=== PATIENT | female | born 1945 | race Caucasian/White ===

== ENCOUNTER 2016-12-03 12:39 | Inpatient (IN) | payer OTHER ==
[~2016-12-03] VITALS: Ht 172.7 cm; Wt 73.6 kg
[~2016-12-03 12:39] MED LIST: ASPCH81X PO; CHOL1TAB42 PO; GLC/500 PO; GLUCTAB18; HYDR12.55 PO; [UNRECOGNIZED DRUG - OTHER] PO
[2016-12-03] MEDS ORDERED: IBUP-1050 PO (13:07)
[2016-12-03] MEDS ORDERED: LISI-787 PO (13:07)
[2016-12-03] MEDS ORDERED: HYDROmorphone INJ 2 MG/ML SYR/VIAL IV STA (14:06)
--- NOTE | 2016-12-03 14:13 | EMERGENCY ROOM VISIT NOTE ---
History Report prepared by Rupesh: Becca Duran Under the Supervision of: Dr. Martha Kunz D.O. First contact with patient: 13:26 Chief Complaint: BACK PAIN Stated Complaint: SEVERE FOOT PAIN History of Present Illness The patient is a 71 year old female who presents to the Emergency Room with complaints of persistent back pain for the past 2 months. She is accompanied by a family friend. She rates her discomfort as a 10/10 in severity. Laying down somewhat relieves her pain. Ibuprofen has also provided minimal relief. The patient denies any recent injury or trauma. Her friend reports she was seen back at home in [facility] several months ago for her symptoms, but they don't know what her diagnoses was. She moved to the [facility] permanently 2 days ago and is already established with a primary care physician here, [place]. Larry [place] [facility] Her friend believes an MRI of the back showed "a growth" on the spine and possible issues with some of her discs. The patient has also experienced the chills, melena and some difficulty urinating over the past few days. She denies any weakness in her legs. Source of History: patient, friend Onset: 2 months [employer] Position: back Symptom Intensity: 10/10 Timing: other (persistent) Modifying Factors (Relieving): rest (laying down), ibuprofen Associated Symptoms: + chills, + melena, + urinary symptoms (difficulty urinating), No weakness (weakness in the legs) Review of Systems See HPI for pertinent positives & negatives. A total of 10 systems reviewed and were otherwise negative. Past Medical & Surgical Medical Problems: (1) Diabetes (2) HTN (hypertension) (3) No known allergies Family History Diabetes mellitus Hypertension Social History Smoking Status: Never Smoker Smokeless Tobacco Use: No Alcohol Use: none Drug Use: none Marital Status: Housing Status: lives with significant other Occupation Status: retired Current/Historical Medications Scheduled Lisinopril/Hctz (Zestoretic 20MG/12.5MG), 1 TAB PO BID Metformin Hcl (Glucophage), 500 MG PO BID Scheduled PRN Ibuprofen (Advil), 200-600 MG PO Q4H PRN for Pain Allergies Coded Allergies: No Known Allergies (Unverified , 07/31/15) Physical Exam Vital Signs Date Time Temp Pulse Resp B/P (MAP) Pulse Ox O2 Delivery O2 Flow Rate FiO2 12/03/16 18:21 76 12/03/16 17:17 82 19 161/89 89 2.0 12/03/16 15:39 80 12 96 12/03/16 15:31 169/85 12/03/16 15:19 178/99 12/03/16 15:01 172/85 12/03/16 14:39 83 15 99 12/03/16 14:31 180/93 12/03/16 14:24 38.0 82 24 198/110 97 Nasal Cannula 2.0 12/03/16 14:19 198/110 12/03/16 14:19 86 12/03/16 14:19 95 Room Air 12/03/16 12:43 37.0 83 22 178/104 95 Room Air Physical Exam General: The patient appears extremely uncomfortable. HEENT: Head - normocephalic and atraumatic Pupils are equal, round, and reactive to light. Extraocular eye muscles are intact, and sclera are anicteric. Nose - moist nasal mucosa without discharge. Mouth - moist buccal mucosa. Oropharynx is nonerythematous and there is no tonsillar exudate or edema noted. Neck: Supple; no JVD, nuchal rigidity, cervical lymphadenopathy. Heart: Regular rate and rhythm. There is a normal S1 and S2 with no murmurs, clicks, or gallops appreciated. Lungs: Clear to auscultation bilaterally with no wheezes, rales, or rhonchi. Back: No skin lesions noted and no reproducible pain on exam. Abdomen: Soft, completely nontender, nondistended, with good bowel sounds. There are no palpable pulsatile masses or hepatosplenomegaly. There is no guarding, rigidity, or rebound noted. Extremities: No evidence of cyanosis, clubbing, or edema. There are easily palpable peripheral pulses. Skin: warm and dry with good turgor and no rashes. Medical Decision & Procedures ER Provider Diagnostic Interpretation: Radiology results as stated below per my review and the radiologist's interpretation: CT OF THE ABDOMEN AND PELVIS WITHOUT CONTRAST, STONE PROTOCOL CLINICAL HISTORY: Left sided abdominal pain. Evaluate for stone. COMPARISON STUDY: None. TECHNIQUE: Helical axial images of the abdomen and pelvis were obtained without IV or oral contrast according to renal stone protocol. A dose lowering technique was utilized adhering to the principles of ALARA. FINDINGS: Visualized portions of the lower chest demonstrate small bilateral pleural effusions. Associated airspace opacities suggest atelectasis. There may be mild pulmonary edema. No pneumatosis, free air or portal venous gas is present. There are no renal, ureteral or bladder calculi. There is no hydronephrosis or ureter. There are gallstones within the gallbladder. A small amount of ascites is noted. Unenhanced images of the liver, spleen, adrenal glands and pancreas are normal. There is no evidence for a bowel obstruction. The appendix is normal. Of note, there is an erosive appearance of the left aspect of the inferior endplate of L3 and the left aspect of the superior endplate of L4 with adjacent left paravertebral infiltration that extends into the left psoas. This is suboptimally assessed on this unenhanced CT. No additional sites of bony destruction are present IMPRESSION: 1. Findings suggestive of L3-L4 discitis and osteomyelitis with left paravertebral infiltration extending into the psoas muscle. This may reflect phlegmon or paravertebral abscess. An MRI of the lumbar spine with and without contrast is recommended for confirmation as well as to evaluate for epidural component. A neoplastic process could appear similar although is considered much less likely. Findings discussed with Dr. Kunz at time of dictation. 2. No urinary calculi or hydronephrosis. 3. Cholelithiasis. 4. Small bilateral pleural effusions. 5. Small amount of ascites. Electronically signed by: Rico Shearer M.D. 12/03/2016 4:20 PM Laboratory Results 12/03/16 14:15 Red Blood Count 3.55, Mean Corpuscular Volume 92.4, Mean Corpuscular Hemoglobin 31.3, Mean Corpuscular Hemoglobin Concent 33.8, Mean Platelet Volume 8.2, Neutrophils (%) (Auto) 65.2, Lymphocytes (%) (Auto) 24.3, Monocytes (%) (Auto) 8.5, Eosinophils (%) (Auto) 1.2, Basophils (%) (Auto) 0.4, Neutrophils # (Auto) 7.03, Lymphocytes # (Auto) 2.61, Monocytes # (Auto) 0.91, Eosinophils # (Auto) 0.13, Basophils # (Auto) 0.04 12/03/16 14:15 Test 12/03/16 14:15 12/03/16 14:19 White Blood Count 10.76 K/uL (4.8-10.8) Red Blood Count 3.55 M/uL (4.2-5.4) Hemoglobin 11.1 g/dL (12.0-16.0) Hematocrit 32.8 % (37-47) Mean Corpuscular Volume 92.4 fL (80-100) Mean Corpuscular Hemoglobin 31.3 pg (25-34) Mean Corpuscular Hemoglobin Concent 33.8 g/dl (32-36) Platelet Count 351 K/uL (130-400) Mean Platelet Volume 8.2 fL (7.4-10.4) Neutrophils (%) (Auto) 65.2 % Lymphocytes (%) (Auto) 24.3 % Monocytes (%) (Auto) 8.5 % Eosinophils (%) (Auto) 1.2 % Basophils (%) (Auto) 0.4 % Neutrophils # (Auto) 7.03 K/uL (1.4-6.5) Lymphocytes # (Auto) 2.61 K/uL (1.2-3.4) Monocytes # (Auto) 0.91 K/uL (0.11-0.59) Eosinophils # (Auto) 0.13 K/uL (0-0.5) Basophils # (Auto) 0.04 K/uL (0-0.2) RDW Standard Deviation 49.3 fL (36.4-46.3) RDW Coefficient of Variation 14.6 % (11.5-14.5) Immature Granulocyte % (Auto) 0.4 % Immature Granulocyte # (Auto) 0.04 K/uL (0.00-0.02) Erythrocyte Sedimentation Rate 82 mm/hr (0-21) Prothrombin Time 11.2 SECONDS (9.0-12.0) Prothromb Time International Ratio 1.0 (0.9-1.1) Activated Partial Thromboplast Time 26.4 SECONDS (21.0-31.0) Partial Thromboplastin Ratio 1.0 Anion Gap 5.0 mmol/L (3-11) Est Creatinine Clear Calc Drug Dose 34.6 ml/min Estimated GFR () 47.5 Estimated GFR (Non- 41.0 BUN/Creatinine Ratio 17.2 (10-20) Calcium Level 8.4 mg/dl (8.5-10.1) Total Bilirubin 0.5 mg/dl (0.2-1) Aspartate Amino Transf (AST/SGOT) 23 U/L (15-37) Alanine Aminotransferase (ALT/SGPT) 24 U/L (12-78) Alkaline Phosphatase 53 U/L (45-117) C-Reactive Protein 5.30 mg/dl (0-0.29) Total Protein 7.8 gm/dl (6.4-8.2) Albumin 2.4 gm/dl (3.4-5.0) Globulin 5.4 gm/dl (2.5-4.0) Albumin/Globulin Ratio 0.4 (0.9-2) Bedside Lactic Acid Venous 1.62 mmol/L (0.90-1.70) Laboratory results per my review. Medications Administered Medications (Trade) Dose Ordered Sig/Oseas Route Start Time Stop Time Status Last Admin Dose Admin Hydromorphone HCl (Dilaudid Inj) 2 mg NOW STAT IV 12/03/16 14:06 12/03/16 14:08 DC 12/03/16 14:22 2 MG Ceftriaxone Sodium (Rocephin Inj) 2 gm NOW STAT IV 12/03/16 16:24 12/03/16 16:27 DC 12/03/16 16:24 2 GM Procedure Dilaudid IV. Rocephin 2 gm IV. ED Course 1349: Past medical records reviewed. The patient was evaluated in room C9. A complete history and physical exam was performed. A septic protocol was performed. 1406: Dilaudid 2 mg IV. 1545: I reevaluated the patient. She is resting comfortably. 1616: I spoke with Dr. Shearer, Radiology. He states osteomyelitis is seen on the patients CT scan in L3 and L4. 1624: Rocephin 2 gm IV. 1628: I discussed the patients case with Dr. Fermin, [facility]. He recommends the patient be evaluated by the hospital medicine team and he will consult on the case. 1635: I reevaluated the patient. I discussed my recommendation that she remain in the hospital for further evaluation and management and she and her friend verbalized complete understanding and agreement. 1700: I discussed the patients case with Dr. Baca, [facility] Hospitalist. The patient will be further evaluated. Medical Decision The patient is a 71 year old female who presents to the ED with back pain. The differential diagnoses considered include: Pyelonephritis, sepsis, ureteral colic, epidural abscess, discitis, spinal tumor and disc herniation. Lab results show WBC is normal at 10.7. She is anemic with a hemoglobin of 11.1. Lactic acid is 1.6. BUN is 22. Creatinine is 1.3. Glucose is 82. LFT's are normal. COAG's are normal. Sedimentation rate is 82. C-reactive protein is 5.3. The patient has had intermittent episodes of low back pain over the past 2 months. The pain is much more severe in the past 2 days. The patient describes a black stools and hematuria. CT scan is concerning for osteomyelitis /discitis of L3 and L4. There was some extension to the left psoas muscle which explains the pain she has been having in the left side of her back and abdomen. The patient is able to get significant relief of her discomfort is resting comfortably. the patient was ordered to have IV vancomycin and IV Rocephin. The admitting doctor held the vancomycin noting that she will require biopsy ROMAINE by spinal surgery. [facility] Medication Reconcilliation Current Medication List: was personally reviewed by me Blood Pressure Screening Patient's blood pressure: Elevated blood pressure Blood pressure disposition: Elevated BP felt to be situational The patients elevated blood pressure will also be addressed during her inpatient stay. Consults Time Called: 1625 Consulting Physician: Dr. Fermin [facility] Returned Call: 1628 I discussed the patients case with Dr. Fermin [facility]. He recommends the patient be evaluated by the hospital medicine team and he will consult on the case. Additional Consults: Time Called: 1640 Consulted Physician: Dr. Baca, [facility] Hospitalist Returned Call: 1700 Additional Comments: I discussed the patients case with Dr. Baca [facility] Hospitalist. The patient will be further evaluated. Impression Primary Impression: Osteomyelitis of low back Additional Impression: Diskitis Scribe Attestation The scribe's documentation has been prepared under my direction and personally reviewed by me in its entirety. I confirm that the note above accurately reflects all work, treatment, procedures, and medical decision making performed by me. Departure Information Dispostion Being Evaluated By Hospitalist Referrals José Larry III, CRNP (PCP) Patient Instructions [facility] Problem Qualifiers Additional Impression: Diskitis Spinal region: lumbar Qualified Codes: M46.46 - Discitis, unspecified, lumbar region
[2016-12-03 14:41] LABS: BASO % 0.4 %; BASO ABS # 0.04 K/uL (0-0.2); COMPLETE YES; EOS % 1.2 %; HEMATOCRIT 32.8 % (37-47); IG% 0.4 %; LYMPH % 24.3 %; LYMPH ABS # 2.61 K/uL (1.2-3.4); MEAN CELL VOLUME 92.4 fL (80-100); MEAN CORPUSCULAR HEMOGLOBIN 31.3 pg (25-34); MEAN CORPUSCULAR HGB CONC 33.8 g/dl (32-36); MEAN PLATELET VOLUME 8.2 fL (7.4-10.4); MONO % 8.5 %; NEUT % 65.2 %; PLATELET COUNT 351 K/uL (130-400); RED BLOOD COUNT 3.55 M/uL (4.2-5.4); WHITE BLOOD COUNT 10.76 K/uL (4.8-10.8)
[2016-12-03 14:50] LABS: PROTHROMBIN TIME (PATIENT) 11.2 SECONDS (9.0-12.0)
[2016-12-03 15:01] LABS: BUN/CREATININE RATIO 17.2 (10-20); CALCIUM 8.4 mg/dl (8.5-10.1); CREATININE 1.3 mg/dl (0.60-1.20); POTASSIUM 4.1 mmol/L (3.5-5.1)
[2016-12-03 15:04] LABS: ALB/GLOB RATIO 0.4 (0.9-2)
--- NOTE | 2016-12-03 16:22 | DIAGNOSTIC IMAGING REPORT ---
CT OF THE ABDOMEN AND PELVIS WITHOUT CONTRAST, STONE PROTOCOL CLINICAL HISTORY: Left sided abdominal pain. Evaluate for stone. COMPARISON STUDY: None. TECHNIQUE: Helical axial images of the abdomen and pelvis were obtained without IV or oral contrast according to renal stone protocol. A dose lowering technique was utilized adhering to the principles of ALARA. FINDINGS: Visualized portions of the lower chest demonstrate small bilateral pleural effusions. Associated airspace opacities suggest atelectasis. There may be mild pulmonary edema. No pneumatosis, free air or portal venous gas is present. There are no renal, ureteral or bladder calculi. There is no hydronephrosis or ureter. There are gallstones within the gallbladder. A small amount of ascites is noted. Unenhanced images of the liver, spleen, adrenal glands and pancreas are normal. There is no evidence for a bowel obstruction. The appendix is normal. Of note, there is an erosive appearance of the left aspect of the inferior endplate of L3 and the left aspect of the superior endplate of L4 with adjacent left paravertebral infiltration that extends into the left psoas. This is suboptimally assessed on this unenhanced CT. No additional sites of bony destruction are present IMPRESSION: 1. Findings suggestive of L3-L4 discitis and osteomyelitis with left paravertebral infiltration extending into the psoas muscle. This may reflect phlegmon or paravertebral abscess. An MRI of the lumbar spine with and without contrast is recommended for confirmation as well as to evaluate for epidural component. A neoplastic process could appear similar although is considered much less likely. Findings discussed with Dr. Kunz at time of dictation. 2. No urinary calculi or hydronephrosis. 3. Cholelithiasis. 4. Small bilateral pleural effusions. 5. Small amount of ascites. Electronically signed by: Rico Shearer M.D. 12/03/2016 4:20 PM Dictated Date/Time: 12/03/2016 4:08 PM
[2016-12-03] MEDS: VANCOMYCIN INJ 2,000 MG in SODIUM CHLORIDE 0.9% 500ML 500 ML IV STA ×2 (16:24→17:17)
[2016-12-03] MEDS ORDERED: CEFTRIAXONE SOD INJ 1 GM ADDVIAL IV STA (16:24)
[2016-12-03] MEDS ORDERED: ENOXAPARIN 40 MG/0.4 ML SYR SQ STA (18:04)
[2016-12-03] MEDS ORDERED: MAGNESIUM HYDROXIDE SUSP 30 ML UDC PO PRN (18:15)
[2016-12-03] MEDS ORDERED: ACETAMINOPHEN 325 MG TAB PO PRN (18:15)
[2016-12-03] MEDS ORDERED: ZOLPIDEM TARTRATE 5 MG TAB PO PRN (18:15)
[2016-12-03] MEDS ORDERED: ONDANSETRON INJ 2 MG/ML 2 ML VIAL IV PRN (18:15)
[2016-12-03] MEDS ORDERED: POLYETHYLENE (MIRALAX) 17 GM PACK PO PRN (18:15)
[2016-12-03] MEDS ORDERED: ONDANSETRON INJ 2 MG/ML 2 ML VIAL ONE (18:55)
[2016-12-03 20:15] VITALS: BP 189/99; PULSE 76; TEMP 36.5; O2SAT 93; Ht 172.7 cm; Wt 73.6 kg
[2016-12-03] MEDS: SODIUM CHLORIDE 0.9% 1000ML 1,000 ML IV SCH (20:52)
[2016-12-03] MEDS: HydrALAZINE HCL 20 MG/ML VIAL IV. PRN (20:53)
[2016-12-03] MEDS ORDERED: LISINOPRIL/HCTZ 20/12.5MG TAB PO SCH (21:00)
[2016-12-03 21:41] VITALS: BP 165/86
[2016-12-04] VITALS (9 sets, daily range): BP systolic 151–176; BP diastolic 72–87; PULSE 77–94; TEMP 36.7–37.2; O2SAT 90–95
--- NOTE | 2016-12-04 00:21 | HISTORY & PHYSICAL EXAMINATION ---
DATE OF ADMISSION: 12/03/2016 CHIEF COMPLAINT: Lower back pain. HISTORY OF PRESENT ILLNESS: The patient is a 71-year-old pleasant female from [facility], who lives with her daughter here in the [facility] and went to visit [facility] about 3 months ago. While she was in [facility], she developed lower back pain and prompted her to go to the ER there multiple times with no definitive workup done. Also has been having intermittent fever and chills in [facility] and her pain started to get progressively more. At one of her visits in [facility] they did an MRI, but unknown if that was done with contrast or without, but they told her you have something in your lumbar spine and you need to get it checked out. She did not understand if they told her that there is a mass, infection or what. Finally, the patient after that decided to come back to the [facility]. While she was in [facility] she denies any abscess or skin infection, but said that at some point she had a little bit of dark stool. She denies any source of infection that might be causing this, but said that in one of her ER visits they told her that there are red blood cells in the urine. She denies any oral or dental work except one tooth that required some dental filling. There was no abscess in her gum or anything. The patient admits to drinking unpasteurized milk in [facility]; also gave history of her father having brucellosis in the past which is a long time ago, but it gave me an idea that the area might be endemic, that she lives in. The patient came here to the ED and was found to have severe lower back pain. A CT scan was done and showed discitis/osteomyelitis in the lumbar spine. The patient will be admitted for further evaluation and management. At the bedside is the patient's friend who the patient chose to help with interpretation, history was obtained from medical record and the patient through her friend until a professional medical staff assistant arrives to the facility, so we would not delay the care. REVIEW OF SYSTEMS: Denies any headache, double vision, blurry vision. Denies any chest pain or palpitation, but admits to intermittent missed beats that she feels every now and then in her heart. Denies any focal weakness, tingling or numbness. Denies any diarrhea or blood in the stool. Denies any burning sensation in the urine or blood. Denies any vomiting, nausea or abdominal pain. Aside from the lower back pain there are no any other affected joints. The rest of the review of systems is negative. PAST MEDICAL HISTORY: Diabetes, she takes metformin which was held because of the exposure to contrast and hypertension. ALLERGIES: No known drug allergy. FAMILY HISTORY: Father has brucellosis. Family history is also positive for diabetes and high blood pressure. SOCIAL HISTORY: Does not smoke. , lives with significant other. Retired. CURRENT MEDICATIONS: Lisinopril/hydrochlorothiazide b.i.d., metformin b.i.d. and ibuprofen p.r.n. PHYSICAL EXAMINATION: GENERAL: Average build, not in acute distress at this point. VITAL SIGNS: Temperature 38, pulse 76, respirations 19, blood pressure 161/89, pulse ox is 99% on 2 liters, was 95% on room air on admission. HEENT: No jaundice. No pallor with mucous membranes. Eye: Normal external eye exam with anicteric sclerae. NECK: Supple. HEART: S1, S2 normal. No gallop, rub or murmur. LUNGS: Clear to auscultation bilaterally. Normal chest wall expansion. ABDOMEN: Soft, nontender and nondistended. NEUROLOGIC: Awake, alert, oriented to time, place and person. Moves all extremities. Sensation intact. Cranial nerves II-XII appear to be intact. BACK: Normal inspection and on palpation she did not have significant pain actually despite of the finding on the CAT scan. She said the pain is not mainly on palpation, but on ambulation. SKIN: Warm and dry. No rash on exposed skin areas. PSYCHIATRIC: Appropriate process of thinking and normal affect. IMAGING: CT scan suggestive of L3-L4 discitis and osteomyelitis with left paravertebral infiltration extending into the psoas muscle. Also noted cholelithiasis, small bilateral pleural effusion and small amount of ascites. LABORATORY DATA: White blood cell count 10.7, hemoglobin of 11, platelets 351. BUN is 22 , creatinine 1.3. Sodium 141, potassium is 4.1. Received 2 grams of CTXN in ED and hydromorphone for pain. ASSESSMENT AND PLAN: A 71-year-old female, who recently came from [facility], has a history of exposure in [facility] to unpasteurized milk and a family history of brucellosis. She presented to the Emergency Department with discitis/osteomyelitis. She does not appear to be in septic shock at this moment or in severe sepsis. 1. L3-L4 discitis/osteomyelitis with possible left paravertebral infiltration, due to her unusual exposures, we will hold off antibiotics especially that she does not appear to be in severe sepsis at this moment and vitals are within normal limits. No leukocytosis. We will hold off antibiotics. She only took one dose of ceftriaxone. I canceled the vancomycin. I discussed with Dr. Fermin who is going to obtain a bone biopsy on Monday. We will consult Infectious Diseases. 2. The following orders were ordered on downtime paper, bone tissue for brucellosis polymerase chain reaction and Cx and bone tissue for tuberculosis culture, fungal culture, brucella, bartonella cultures, histopathology, anaerobic and aerobic cultures. Also, blood sample for tuberculosis, fungal culture, brucella Jennifer, IgM, IgG and IgA. Samples have been marked as biological hazards. 3. Fungitell and QuantiFERON Gold were ordered as well. 4. Diabetes mellitus, on metformin. Currently, we will hold metformin. We will start patient on sliding scale insulin and we will obtain hemoglobin A1c to stratify her risk factors. 5. Hypertension, currently with her blood pressure medication on hold as she was on lisinopril, hydrochlorothiazide. Had creatinine of 1.3 and she just was exposed to contrast dye. I did not know her baseline creatinine. I preferred to hold lisinopril, hydrochlorothiazide. I will put her on hydralazine p.r.n. if systolic blood pressure is more than 160, until repeat creatinine in the morning. 6. Deep venous thrombosis prophylaxis. She received one dose of Lovenox today. We will stop deep venous thrombosis prophylaxis until tomorrow, until after the bone biopsy; if okay with Dr. Fermin please discuss with Dr. Fermin when to start pharmacologic deep venous thrombosis prophylaxis. Otherwise, she is going to be on sequential compression device boots for tomorrow. 7. Ordered a transthoracic echocardiogram to rule out endocarditis. If that is negative, might consider transesophageal echocardiogram. We will leave this discretion to Infectious Diseases attending and primary attending who will follow up the patient. KYLAH
[2016-12-04] MEDS: MoRPHine SULFATE 2 MG/ML CARP IV PRN ×4 (03:11→16:15)
[2016-12-04 08:16] LABS: BASO % 0.5 %; BASO ABS # 0.03 K/uL (0-0.2); COMPLETE YES; EOS % 1.1 %; HEMATOCRIT 28.1 % (37-47); IG% 0.2 %; LYMPH % 18.9 %; LYMPH ABS # 1.19 K/uL (1.2-3.4); MEAN CELL VOLUME 93.4 fL (80-100); MEAN CORPUSCULAR HEMOGLOBIN 30.2 pg (25-34); MEAN CORPUSCULAR HGB CONC 32.4 g/dl (32-36); MONO % 8.3 %; PLATELET COUNT 249 K/uL (130-400); RED BLOOD COUNT 3.01 M/uL (4.2-5.4); WHITE BLOOD COUNT 6.29 K/uL (4.8-10.8)
[2016-12-04 08:51] LABS: BUN/CREATININE RATIO 17.3 (10-20); CREATININE 1.2 mg/dl (0.60-1.20); MAGNESIUM 1.9 mg/dl (1.8-2.4); POTASSIUM 4.1 mmol/L (3.5-5.1)
[2016-12-04] MEDS ORDERED: PNEUMOCOCCAL POLYSACCHARIDES 25 MCG/0.5 ML VIAL/SYR IM. ONE (09:00)
[2016-12-04] MEDS ORDERED: PNEUMOCOCCAL ADMINISTRATION CHARGE ONE (09:00)
[2016-12-04 09:19] LABS: ALB/GLOB RATIO 0.4 (0.9-2); PHOSPHORUS 3.9 mg/dl (2.5-4.9)
--- NOTE | 2016-12-04 10:25 | ECHOCARDIOGRAM REPORT ---
*NOTICE TO RECEIVING [employer] This information is strictly Confidential and protected under [place] law. [place] law prohibits you from making any further disclosure of this information unless further disclosure is expressly permitted by the written consent of the person to whom it pertains or is authorized by law. A general authorization for the release of medical or other information is not sufficient for this purpose. Hospital accepts no responsibility if the information is made available to any other person, INCLUDING THE PATIENT. Interpretation Summary * Name: JIMMY RAMIREZ Study Date: 12/04/2016 08:11 AM BP: 151/72 mmHg * Patient Location: [facility]\S\N279\S\1 HR: 102 * : 1945 (M/d/yyyy) Gender: Female Height: 60 in * Age: 71 yrs Ethnicity: [place] Weight: 158 lb * Ordering Physician: Chris Mcdonald * Referring Physician: Self, Referred * Performed By: [facility] * * Reason For Study: ENDOCARDITIS * BSA: 1.7 m2 * There is no evidence of a mass or vegetation. This does not rule out endocarditis. * -- Conclusions -- * Left ventricular systolic function is normal. * Grade I diastolic dysfunction, (abnormal relaxation pattern). * Right ventricular systolic pressure is elevated at 40-50mmHg. * Trace pericardial effusion Procedure Details * A complete two-dimensional transthoracic echocardiogram was performed (2D, M-mode, Doppler and color flow Doppler). Left Ventricle * The left ventricle is normal in size. * There is normal left ventricular wall thickness. * The basal septum is thickened and angulated consistent with sigmoid septum. * Left ventricular systolic function is normal. * Grade I diastolic dysfunction, (abnormal relaxation pattern). * The left ventricular wall motion is normal. Right Ventricle * The right ventricle is normal in size and function. Atria * The left atrial size is normal. * Right atrial size is normal. Mitral Valve * The mitral valve anatomy is normal. * There is trace mitral regurgitation. Tricuspid Valve * The tricuspid valve is not well visualized, but is grossly normal. * There is trace tricuspid regurgitation. * Right ventricular systolic pressure is elevated at 40-50mmHg. Aortic Valve * The aortic valve is normal in structure and function. * The aortic valve is trileaflet. * No hemodynamically significant valvular aortic stenosis. * There is no significant aortic regurgitation. Great Vessels * The aortic root is normal size. Pericardium/Pleural * Trace pericardial effusion MMode 2D Measurements and Calculations IVSd 1.1 cm IVSs 1.3 cm LVIDd 3.3 cm LVIDs 1.9 cm LVPWd 1.1 cm LVPWs 0.79 cm IVS/LVPW 1.1 FS 43.7 % EDV(Teich) 44.0 ml ESV(Teich) 10.5 ml EF(Teich) 76.1 % EDV(cubed) 35.8 ml ESV(cubed) 6.4 ml EF(cubed) 82.2 % % IVS thick 13.5 % % LVPW thick -26.04 % LV mass(C)d 109.9 grams LV mass(C)dI 65.1 grams/m\S\2 LV mass(C)s 46.4 grams LV mass(C)sI 27.4 grams/m\S\2 SV(Teich) 33.5 ml SI(Teich) 19.8 ml/m\S\2 SV(cubed) 29.4 ml SI(cubed) 17.4 ml/m\S\2 Ao root diam 2.9 cm Ao root area 6.6 cm\S\2 LA dimension 3.3 cm LA/Ao 1.1 LVOT diam 1.9 cm LVOT area 2.7 cm\S\2 Doppler Measurements and Calculations MV E max noble 82.5 cm/sec MV A max noble 101.4 cm/sec MV E/A 0.81 MV P1/2t max noble 91.8 cm/sec MV P1/2t 59.2 msec MVA(P1/2t) 3.7 cm\S\2 MV dec slope 454.0 cm/sec\S\2 MV dec time 0.22 sec Ao V2 max 160.3 cm/sec Ao max PG 10.3 mmHg Ao max PG (full) 1.0 mmHg MAAME(V,A) 2.6 cm\S\2 MAAME(V,D) 2.6 cm\S\2 LV V1 max PG 9.2 mmHg LV V1 max 152.1 cm/sec TR max noble 310.0 cm/sec
[2016-12-04] MEDS ORDERED: GADAVIST IV PRN (13:45)
[2016-12-04] MEDS: SODIUM CHLORIDE 0.9% 1000ML 1,000 ML IV SCH (14:16)
--- NOTE | 2016-12-04 14:18 | DIAGNOSTIC IMAGING REPORT ---
LUMBAR SPINE COMBINATION HISTORY: Pain discitis/osteomyelitis TECHNIQUE: Multiplanar multisequence MRI of the lumbar spine was performed both before and after the intravenous administration of contrast. COMPARISON: CT 12/03/2016 FINDINGS: For the purpose of the report the L5-S1 disc space will be located on axial image 23 of 25. Bone marrow replacing process involving the L3 and L4 vertebral bodies. Significant postcontrast enhancement consistent with osteomyelitis. Associated paraspinal soft tissue component. Evidence for epidural enhancement as well as enhancement of the left neuroforamina at L3-L4 with associated soft tissue components. Mild disc height is at the left lateral aspect of L3-L4. L1-L2: No significant central canal or neural foraminal narrowing. L2-L3: No significant central canal or neural foraminal narrowing. L3-L4: Post contrast enhancement of the associated vertebral bodies. Left perisellar mass infiltrative change combined with a of focal 1.5 cm left psoas abscess. Inferior extension of the edematous and inflammatory change of the left psoas muscle. Abnormal soft tissue occupying the left neuroforamina at L3-L4 with evidence for anterior epidural enhancement. L4-L5: Epidural component enhances inferior to the L4 vertebral body with partial involvement of the left L4-L5 neuroforamina. This appears to be one contiguous inflammatory process from the level of the superior endplate of L2 extending to the superior left pelvic iliopsoas musculature. L5-S1: Mild edematous change of the posterior paraspinal musculature moderate postcontrast enhancement of the posterior facets at the L5-S1 and L4-L5 level. IMPRESSION: 1. Findings consistent with osteomyelitis at L3 and L4. 2. Abnormal soft tissue lateral to the L3-L4 vertebral bodies with soft tissue extending to the left neuroforamina at L3-L4 and L4-L5. 3. This appearance consistent with discitis as well as osteomyelitis with associated soft tissue phlegmon. 4. 1.5 cm abscess within the left iliopsoas muscular musculature lateral to the L4 level of the lumbar spine. 5. Posterior paravertebral inflammatory change within the paraspinal musculature as well as involving the posterior facets at L4 and L5 6. The epidural component at L3 and L4 creates moderate impact upon the anterior aspect of the thecal sac. The above report was generated using voice recognition software. It may contain grammatical, syntax or spelling errors. Electronically signed by: Kevin Johnson M.D. 12/04/2016 2:16 PM Dictated Date/Time: 12/04/2016 2:07 PM
[2016-12-04] MEDS ORDERED: VANCOMYCIN CONSULT ACTIVE PRN (15:00)
[2016-12-04] MEDS ORDERED: VANCOMYCIN INJ 1,850 MG in SODIUM CHLORIDE 0.9% 500ML 500 ML IV STA (15:06)
--- NOTE | 2016-12-04 15:33 | Pharmacy Progress Note ---
Pharmacy Abx Initial Consult Date of Service Dec 04, 2016. Pharmacy Dosing Scope Date of Consult: 12/04/2016 Consultation requested by: SHAILA NEVILLE Pharmacy is consulted to initiate Vancomycin dosing therapy, order appropriate labs and adjust drug dose/frequency. Subjective The patient is a 71 year old female admitted on Dec 03, 2016 at 18:51. Objective Height (Feet): 5 Height (Inches): 8.00 Weight (Kilograms): 73.800 Vital Signs (Past 12Hrs) Vital Signs Past 12 Hours Date Time Temp Pulse Resp B/P (MAP) Pulse Ox O2 Delivery O2 Flow Rate FiO2 12/04/16 15:06 36.8 94 17 151/87 (108) 94 12/04/16 12:00 Room Air 12/04/16 11:23 37.2 84 16 176/84 (114) 90 12/04/16 07:49 37.0 77 16 151/72 (98) 93 12/04/16 07:45 Room Air 12/04/16 04:51 Room Air 12/04/16 04:16 37.0 83 16 162/80 (107) 93 Room Air Lab Results (24Hrs) Laboratory Tests (24 Hours) Test 12/04/16 07:51 White Blood Count 6.29 K/uL (4.8-10.8) Red Blood Count 3.01 M/uL (4.2-5.4) L Hemoglobin 9.1 g/dL (12.0-16.0) L Hematocrit 28.1 % (37-47) L Mean Corpuscular Volume 93.4 fL (80-100) Mean Corpuscular Hemoglobin 30.2 pg (25-34) Mean Corpuscular Hemoglobin Concent 32.4 g/dl (32-36) Platelet Count 249 K/uL (130-400) Mean Platelet Volume 8.0 fL (7.4-10.4) Neutrophils (%) (Auto) 71.0 % Lymphocytes (%) (Auto) 18.9 % Monocytes (%) (Auto) 8.3 % Eosinophils (%) (Auto) 1.1 % Basophils (%) (Auto) 0.5 % Neutrophils # (Auto) 4.47 K/uL (1.4-6.5) Lymphocytes # (Auto) 1.19 K/uL (1.2-3.4) L Monocytes # (Auto) 0.52 K/uL (0.11-0.59) Eosinophils # (Auto) 0.07 K/uL (0-0.5) Basophils # (Auto) 0.03 K/uL (0-0.2) Micro Results Date/Time Source Procedure Growth Status 12/03/16 20:42 Blood Fungal Smear - Final Resulted 12/03/16 20:42 Blood Fungal Culture Pending Resulted 12/03/16 14:30 Blood Blood Culture - Preliminary Gram Positive Cocci Resulted 12/03/16 14:15 Blood Blood Culture - Preliminary Gram Positive Cocci Resulted Assessment & Plan Assessment 71 year old female with possible discitis/osteomyelitis now with positive blood cultures X 2 with preliminary report of gram positive cocci leading to empiric start of IV Vancomycin. Plan Vancomycin for treatment of confirmed bacteremia with gram positive cocci Vancomycin IV * Loading dose: 1850 mg (25 mg/kg) * Maintenance dose: 1100 mg IV (15 mg/kg) every 18 hours * Goal trough level for bacteremia: 15 to 20 mcg/mL * Trough level ordered for 12/06/16 prior to the 2200 hours dose Pharmacy will continue to follow and will adjust dose/frequency as necessary. Thank you.
--- NOTE | 2016-12-04 16:53 | Hospitalist Progress Note ---
Hospitalist Progress Note Date of Service Dec 04, 2016. Subjective Pt evaluation today including: conversation w/ patient, conversation w/ family , chart review, lab review, review of studies, review of inpatient medication list Pain: no pain at rest. Significant lumbar pain on the left side with movement PO Intake: some nausea no dysphagia Voiding: no voiding problems, no incontinence This is a pleasant 71-year-old female that is [place] and speaks no Maori. Interview and exam was done with the assistance of the translation service via face time. Patient indicates that currently her pain is controlled as long as she lays supine. With any kind of ambulation or movement she has severe pain which causes nausea and vomiting. She also indicates that when moving her blood pressure goes up and she feels as though she has some palpitations. She denies any fever over the last 12 hours. She has no rigors or sweats. She denies shortness of breath and reports no history of pulmonary disease and no history of tobacco abuse. The patient is very frustrated [place] and is concerned that she will have the same treatment here in the [facility]. When I assured her that we will follow through on this, she became tearful and said that she wants to live another 30 years. Additional Comments: A total of 12 systems was reviewed and is negative other than as listed above in the HPI All Other Systems: Reviewed and Negative Medications Current Inpatient Medications Medications (Trade) Dose Ordered Sig/Oseas Route Start Time Stop Time Status Last Admin Dose Admin Sodium Chloride 1,000 ml @ 50 mls/hr Q20H IV 12/03/16 18:04 01/02/17 18:03 12/04/16 14:16 50 MLS/HR Acetaminophen (Tylenol Tab) 650 mg Q4H PRN PO 12/03/16 18:15 01/02/17 18:14 Magnesium Hydroxide (Milk Of Magnesia Susp) 30 ml Q12H PRN PO 12/03/16 18:15 01/02/17 18:14 Zolpidem Tartrate (Ambien Tab) 5 mg HSZ PRN PO 12/03/16 18:15 01/02/17 18:14 Ondansetron HCl (Zofran Inj) 4 mg Q6H PRN IV 12/03/16 18:15 01/02/17 18:14 Morphine Sulfate (MoRPHine SULFATE INJ) 2 mg Q30M PRN IV 12/03/16 18:15 12/17/16 18:14 12/04/16 16:15 2 MG Polyethylene (Miralax Powder Packet) 17 gm DAILY PRN PO 12/03/16 18:15 01/02/17 18:14 Hydralazine HCl (HydrALAZINE INJ) 10 mg Q6H PRN IV. 12/03/16 19:45 01/02/17 19:44 12/03/16 20:53 10 MG Gadobutrol (Gadavist) 7 mmol UD PRN IV 12/04/16 13:45 12/08/16 13:44 Vancomycin HCl 1850 mg/Sodium Chloride 537 ml @ 200 mls/hr 1530 STAT IV 12/04/16 15:06 12/04/16 17:47 12/04/16 15:54 200 MLS/HR Vancomycin HCl (Consult) 1 ea UD PRN N/A 12/04/16 15:00 12/05/16 14:59 Vancomycin HCl 1100 mg/Sodium Chloride 272 ml @ 125 mls/hr Q18H IV 12/05/16 10:00 12/18/16 15:29 Objective Vital Signs Date Time Temp Pulse Resp B/P (MAP) Pulse Ox O2 Delivery O2 Flow Rate FiO2 12/04/16 15:06 36.8 94 17 151/87 (108) 94 12/04/16 12:00 Room Air 12/04/16 11:23 37.2 84 16 176/84 (114) 90 12/04/16 07:49 37.0 77 16 151/72 (98) 93 12/04/16 07:45 Room Air 12/04/16 04:51 Room Air 12/04/16 04:16 37.0 83 16 162/80 (107) 93 Room Air 12/04/16 00:00 Room Air 12/04/16 00:00 95 Room Air 12/03/16 21:41 165/86 (112) 12/03/16 20:15 36.5 76 18 189/99 93 Room Air 12/03/16 19:54 36.6 70 14 174/91 97 12/03/16 19:53 36.6 12/03/16 19:47 174/91 12/03/16 19:44 70 14 97 12/03/16 19:31 174/91 12/03/16 19:14 70 13 96 12/03/16 19:01 180/98 12/03/16 18:44 72 24 92 12/03/16 18:31 188/99 12/03/16 18:21 76 12/03/16 18:14 76 14 92 12/03/16 18:01 188/106 12/03/16 17:44 71 16 98 12/03/16 17:31 162/94 12/03/16 17:17 82 19 161/89 89 2.0 12/03/16 17:14 77 16 97 12/03/16 17:01 161/89 12/03/16 16:44 76 12 97 12/03/16 16:31 157/100 Physical Exam Notes: Vital Signs - as noted below Laboratory Data - as noted below Physical Exam: General - NAD Eyes - No icterus, gaze conjugate ENT - Mucosa moist, no lesions or candidiasis Neck - Supple, No JVD Lungs - No bronchospasm, rales, or rhonchi. Heart - Regular, rate controlled. No appreciation of murmur, gallop, rubs. No appreciation of ectopy Back - no point tenderness on exam. No evidence of ecchymosis. No evidence of injury Abdomen - Soft, NT, ND, BS present Extremities - No edema, pedal pulses intact Neuro - A&OX3 Laboratory Results Last 24 Hours Test 12/03/16 20:42 12/04/16 07:51 Bartonella henselae IgG Ab Titer Bartonella henselae IgM Ab Titer Bartonella ballard IgG Ab Titer Bartonella ballard IgM Ab Titer White Blood Count 6.29 K/uL Red Blood Count 3.01 M/uL Hemoglobin 9.1 g/dL Hematocrit 28.1 % Mean Corpuscular Volume 93.4 fL Mean Corpuscular Hemoglobin 30.2 pg Mean Corpuscular Hemoglobin Concent 32.4 g/dl Platelet Count 249 K/uL Mean Platelet Volume 8.0 fL Neutrophils (%) (Auto) 71.0 % Lymphocytes (%) (Auto) 18.9 % Monocytes (%) (Auto) 8.3 % Eosinophils (%) (Auto) 1.1 % Basophils (%) (Auto) 0.5 % Neutrophils # (Auto) 4.47 K/uL Lymphocytes # (Auto) 1.19 K/uL Monocytes # (Auto) 0.52 K/uL Eosinophils # (Auto) 0.07 K/uL Basophils # (Auto) 0.03 K/uL RDW Standard Deviation 50.6 fL RDW Coefficient of Variation 14.9 % Immature Granulocyte % (Auto) 0.2 % Immature Granulocyte # (Auto) 0.01 K/uL Sodium Level 143 mmol/L Potassium Level 4.1 mmol/L Chloride Level 106 mmol/L Carbon Dioxide Level 30 mmol/L Anion Gap 7.0 mmol/L Blood Urea Nitrogen 21 mg/dl Creatinine 1.20 mg/dl Est Creatinine Clear Calc Drug Dose 42.7 ml/min Estimated GFR () 52.3 Estimated GFR (Non- 45.1 BUN/Creatinine Ratio 17.3 Random Glucose 83 mg/dl Calcium Level 8.0 mg/dl Phosphorus Level 3.9 mg/dl Magnesium Level 1.9 mg/dl Total Bilirubin 0.3 mg/dl Aspartate Amino Transf (AST/SGOT) 20 U/L Alanine Aminotransferase (ALT/SGPT) 17 U/L Alkaline Phosphatase 38 U/L Total Protein 6.3 gm/dl Albumin 1.8 gm/dl Globulin 4.5 gm/dl Albumin/Globulin Ratio 0.4 Diagnostic Results LUMBAR SPINE COMBINATION HISTORY: Pain discitis/osteomyelitis TECHNIQUE: Multiplanar multisequence MRI of the lumbar spine was performed both before and after the intravenous administration of contrast. COMPARISON: CT 12/03/2016 FINDINGS: For the purpose of the report the L5-S1 disc space will be located on axial image 23 of 25. Bone marrow replacing process involving the L3 and L4 vertebral bodies. Significant postcontrast enhancement consistent with osteomyelitis. Associated paraspinal soft tissue component. Evidence for epidural enhancement as well as enhancement of the left neuroforamina at L3-L4 with associated soft tissue components. Mild disc height is at the left lateral aspect of L3-L4. L1-L2: No significant central canal or neural foraminal narrowing. L2-L3: No significant central canal or neural foraminal narrowing. L3-L4: Post contrast enhancement of the associated vertebral bodies. Left perisellar mass infiltrative change combined with a of focal 1.5 cm left psoas abscess. Inferior extension of the edematous and inflammatory change of the left psoas muscle. Abnormal soft tissue occupying the left neuroforamina at L3-L4 with evidence for anterior epidural enhancement. L4-L5: Epidural component enhances inferior to the L4 vertebral body with partial involvement of the left L4-L5 neuroforamina. This appears to be one contiguous inflammatory process from the level of the superior endplate of L2 extending to the superior left pelvic iliopsoas musculature. L5-S1: Mild edematous change of the posterior paraspinal musculature moderate postcontrast enhancement of the posterior facets at the L5-S1 and L4-L5 level. IMPRESSION: 1. Findings consistent with osteomyelitis at L3 and L4. 2. Abnormal soft tissue lateral to the L3-L4 vertebral bodies with soft tissue extending to the left neuroforamina at L3-L4 and L4-L5. 3. This appearance consistent with discitis as well as osteomyelitis with associated soft tissue phlegmon. 4. 1.5 cm abscess within the left iliopsoas muscular musculature lateral to the L4 level of the lumbar spine. 5. Posterior paravertebral inflammatory change within the paraspinal musculature as well as involving the posterior facets at L4 and L5 6. The epidural component at L3 and L4 creates moderate impact upon the anterior aspect of the thecal sac. The above report was generated using voice recognition software. It may contain grammatical, syntax or spelling errors. Electronically signed by: Kevin Johnson M.D. 12/04/2016 2:[address] OF THE ABDOMEN AND PELVIS WITHOUT CONTRAST, STONE PROTOCOL CLINICAL HISTORY: Left sided abdominal pain. Evaluate for stone. COMPARISON STUDY: None. TECHNIQUE: Helical axial images of the abdomen and pelvis were obtained without IV or oral contrast according to renal stone protocol. A dose lowering technique was utilized adhering to the principles of ALARA. FINDINGS: Visualized portions of the lower chest demonstrate small bilateral pleural effusions. Associated airspace opacities suggest atelectasis. There may be mild pulmonary edema. No pneumatosis, free air or portal venous gas is present. There are no renal, ureteral or bladder calculi. There is no hydronephrosis or ureter. There are gallstones within the gallbladder. A small amount of ascites is noted. Unenhanced images of the liver, spleen, adrenal glands and pancreas are normal. There is no evidence for a bowel obstruction. The appendix is normal. Of note, there is an erosive appearance of the left aspect of the inferior endplate of L3 and the left aspect of the superior endplate of L4 with adjacent left paravertebral infiltration that extends into the left psoas. This is suboptimally assessed on this unenhanced CT. No additional sites of bony destruction are present IMPRESSION: 1. Findings suggestive of L3-L4 discitis and osteomyelitis with left paravertebral infiltration extending into the psoas muscle. This may reflect phlegmon or paravertebral abscess. An MRI of the lumbar spine with and without contrast is recommended for confirmation as well as to evaluate for epidural component. A neoplastic process could appear similar although is considered much less likely. Findings discussed with Dr. Kunz at time of dictation. 2. No urinary calculi or hydronephrosis. 3. Cholelithiasis. 4. Small bilateral pleural effusions. 5. Small amount of ascites. Electronically signed by: Rico Shearer M.D. 12/03/2016 4:20 PM Assessment and Plan DISCITIS/OSTEOMYELITIS/ABSCESS Patient has a history of several months of back pain. She received treatment in [facility]. MRI images are on film and have been sent to radiology to be put in digital format No lower extremity neurological deficits At the time my examination the plan was not to treat with antibiotics until after surgical debridement tomorrow. Blood cultures 2 returned with gram positive cocci - initiated vancomycin IV afternoon MAXIMUM TEMPERATURE was 38.0 C Aside from pain patient has minimal symptoms No hypotension or tachycardia and has been afebrile for 24 hours Plan at this time is for surgical evaluation tomorrow with Dr. Fermin Nothing by mouth after midnight BACTEREMIA Paraspinal phlegmon/abscess with probable osteomyelitis of the lumbar spine Two cultures with gram positive cocci - ID and sensitivity are pending Vancomycin started this afternoon Afebrile for 24 hours WBC 6.29 Negative Pro calcitonin Continue empiric treatment pending surgical debridement tomorrow of the lumbar spine RENAL Acute kidney injury with a creatinine of 1.3 Creatinine improved this morning to 1.2 with IV fluids Follow serial labs Good urine output Follow serial labs NUTRITION Low albumin Nutritional consult due to bacteremia, infection NPO tonight for surgery tomorrow HTN Echocardiogram with grade 1 diastolic dysfunction with an abnormal relaxation pattern No wall motion abnormality or significant valvular disease Trace pericardial effusion Lisonpril/HCTZ at home Hydralazine PRN ordered DMII Glucophage at home Hold metformin due to imaging Random glucose is 83 Start SSI with no basal coverage as patient will be NPO for surgery tomorrow HISTORY OF PALPITATIONS Echocardiogram with no evidence of significant valvular disease Rate controlled with no appreciation of ectopy at the time of my exam No arrhythmias on telemetry Continue on telemetry pending surgery DVT PROPHYLAXIS Enoxaparin held for surgery tomorrow SCDs/TEDs Please refer to Dr. Raza' addendum for further recommendations Continued [facility] stay due to: other (lumbar abscess/osteomyelitis requiring IV medication and surgical intervention) Discharge planning: uncertain
[2016-12-04] MEDS ORDERED: GLUCAGON FOR INJ 1 MG VIAL SQ PRN (17:00)
[2016-12-04] MEDS ORDERED: GLUCOSE 40% GEL 15 GM TUBE PO PRN (17:00)
[2016-12-04] MEDS ORDERED: DEXTROSE 50% 50 ML SYR IV PRN (17:00)
[2016-12-04] MEDS ORDERED: PHARMACY GLYCEMIC MGMT CONSULT SCH (17:00)
[2016-12-04] MEDS ORDERED: GLUCOSE 10 TABS/TUBE PO PRN (17:00)
[2016-12-04] MEDS: INSULIN ASPART 100 UNITS/ML 3 ML PEN SC SCH ×2 (18:08→20:43)
[2016-12-04 18:09] LABS: URINE APPEARANCE CLEAR (CLEAR); URINE BILIRUBIN NEG (NEG); URINE COLOR YELLOW; URINE EPITHELIAL CELL AUTO 20-30 /lpf (0-5); URINE NITRITE NEG (NEG); URINE PH 5.5 (4.5-7.5); URINE SPECIFIC GRAVITY 1.016 (1.000-1.030); UROBILINOGEN NEG (NEG); ZZUR CULT IF INDIC CLEAN CATCH NO
[2016-12-04 18:13] LABS: MANUAL MICROSCOPIC REQUIRED? NO; REVIEW REQ? NO
--- NOTE | 2016-12-04 19:49 | Pharmacy Progress Note ---
Glycemic Control Intl Consult Date of Service Dec 04, 2016. Scope Glycemic Pharmacist consulted by Maddi CONNORS on 12/04/16 for glycemic control and to write orders per [facility] inpatient glycemic control protocol Objective Weight (Kilograms): 73.800 Accuchecks BSG (last 24hrs): Test 12/04/16 07:51 12/04/16 16:58 Random Glucose 83 mg/dl (70-99) Bedside Glucose 111 mg/dl (70-90) Laboratory Data (last 24hrs) Test 12/04/16 07:51 Anion Gap 7.0 mmol/L BUN/Creatinine Ratio 17.3 Blood Urea Nitrogen 21 mg/dl Creatinine 1.20 mg/dl Potassium Level 4.1 mmol/L Sodium Level 143 mmol/L White Blood Count 6.29 K/uL Red Blood Count 3.01 M/uL Hemoglobin 9.1 g/dL Hematocrit 28.1 % Mean Corpuscular Volume 93.4 fL Mean Corpuscular Hemoglobin 30.2 pg Mean Corpuscular Hemoglobin Concent 32.4 g/dl Platelet Count 249 K/uL Mean Platelet Volume 8.0 fL Neutrophils (%) (Auto) 71.0 % Lymphocytes (%) (Auto) 18.9 % Monocytes (%) (Auto) 8.3 % Eosinophils (%) (Auto) 1.1 % Basophils (%) (Auto) 0.5 % Neutrophils # (Auto) 4.47 K/uL Lymphocytes # (Auto) 1.19 K/uL Monocytes # (Auto) 0.52 K/uL Eosinophils # (Auto) 0.07 K/uL Basophils # (Auto) 0.03 K/uL Recent Pertinent Medications Outpatient Anti-diabetic Regimen: * Metformin 500mg PO BID * A1c = ? % Risk Factors for Insulin Resistance: * Infection: Lumbar abscess / discitis / osteomyelitis and GPC bacteremia; receiving Vancomycin IV * Diet: ordered T2DM diet Assessment & Plan ASSESSMENT: 12/04/16 * Type 2 diabetic, Burundian speaking, admitted w/ lumbar abscess / discitis/ osteomyelitis * She takes metformin monotherapy to control her DM in the out-pt setting. Her level of glycemic control with this regimen unknown. A1c ordered for tomorrow AM. * BSGs well controlled at this time 83-111 with metformin on hold * Given the fasting Glu of 83 this AM, will not order Lantus at this time. I suspect she is well controlled on metformin monotherapy. Will reassess daily * Will begin Novolog correctional and prandial insulin at this time, relatively low doses. * She may go to the OR tomorrow. Will need to be vigilant for corticosteroid administration ed-op as this can drastically alter insulin sensitivity. PLAN FOR INPATIENT GLYCEMIC CONTROL: * No basal insulin at this time * Novolog SQ ACHS * Correction factor 30 mg/dl/unit * Carb ratio 1 unit per 15 grams CHO consumed * Goal range Low 110 mg/dL - High 140 mg/dL initially * Please note that the plan above was derived based on current level of insulin resistance and hospital stress. These recommendations are appropriate for inpatient admission only. Plan of care upon discharge will need to be reassessed to avoid potential outpatient hypo/hyperglycemia. Thank you.
[2016-12-05 04:25] VITALS: BP 166/79; PULSE 85; TEMP 37.4; O2SAT 90
[2016-12-05 07:08] LABS: BASO % 0.3 %; BASO ABS # 0.02 K/uL (0-0.2); COMPLETE YES; EOS % 1.1 %; HEMATOCRIT 27.4 % (37-47); IG% 0.4 %; LYMPH % 19.6 %; MEAN CELL VOLUME 93.5 fL (80-100); MEAN CORPUSCULAR HEMOGLOBIN 30.7 pg (25-34); MEAN CORPUSCULAR HGB CONC 32.8 g/dl (32-36); MEAN PLATELET VOLUME 7.9 fL (7.4-10.4); MONO % 7.5 %; NEUT % 71.1 %; PLATELET COUNT 243 K/uL (130-400); RED BLOOD COUNT 2.93 M/uL (4.2-5.4); WHITE BLOOD COUNT 7.16 K/uL (4.8-10.8)
[2016-12-05 07:43] LABS: BUN/CREATININE RATIO 18.9 (10-20); CALCIUM 8.1 mg/dl (8.5-10.1); CREATININE 1.1 mg/dl (0.60-1.20); MAGNESIUM 1.8 mg/dl (1.8-2.4); POTASSIUM 3.9 mmol/L (3.5-5.1)
[2016-12-05] MEDS: INSULIN ASPART 100 UNITS/ML 3 ML PEN SC SCH ×4 (08:00→21:01)
[2016-12-05 09:53] LABS: ESTIMATED AVERAGE GLUCOSE 137 mg/dl; HA1C FLAG Normal (Normal)
[2016-12-05] MEDS: VANCOMYCIN INJ 1,100 MG in SODIUM CHLORIDE 0.9% 250ML 250 ML IV SCH (10:19)
[2016-12-05] MEDS: SODIUM CHLORIDE 0.9% 1000ML 1,000 ML IV SCH (10:19)
--- NOTE | 2016-12-05 10:37 | Progress Note ---
Progress Note Date of Service Dec 05, 2016. Progress Note ID Consult Dictated #[id number] A/P: 1. S. aureus Septicemia 2. Lumbar discitis, vertebral osteo, Left psoas abscess -Continue vanco, await sensitivities -Echo negative for veg -Ortho eval pending, would have low threshold for neurosurgery eval if symptoms worsen -Repeat blood cultures -Will require prolonged course of IV abx, final will depend on additional micro data -Will follow, thank you
[2016-12-05] MEDS ORDERED: CEFTRIAXONE SOD INJ 2,000 MG in DEXTROSE 5% 50ML 50 ML IV SCH (11:00)
[2016-12-05 11:31] VITALS: BP_SYST 199; BP_DIAS 87; BP_DIAS 90; PULSE 81; TEMP 37; O2SAT 90
[2016-12-05] MEDS: HydrALAZINE HCL 20 MG/ML VIAL IV. PRN (11:31)
[2016-12-05 12:16] VITALS: BP 172/81
[2016-12-05] MEDS: LISINOPRIL/HCTZ 10/12.5MG TAB PO SCH (12:47)
--- NOTE | 2016-12-05 12:50 | INFECT. DISEASE CONSULTATION ---
DATE OF CONSULTATION: 12/05/2016 REQUESTING PHYSICIAN: Dr. Raza. HISTORY OF PRESENT ILLNESS: This is a 71-year-old Iranian speaking female who was admitted on the secondary to severe back pain. Per the H&P, she has had intermittent back pain for some time, dating back at least 3 months. She was followed intermittently while in [place] sometime ago and was told that there is an abnormality of the lumbar spine which was identified by CAT scan, but she did not have any definitive treatment for this. Upon arrival to the hospital, she did have a fever of 38 degrees on the . She did have a CAT scan which showed osteomyelitis. This was followed up with an MRI done yesterday which showed osteomyelitis at L3-L4, discitis at L3-L4, L4-L5 with moderate impact on the thecal sac. She was also noted to have a 1.5 cm left psoas abscess. Her sed rate is elevated at 82, her CRP is elevated at 5.3. She did have blood cultures on the as part of her initial workup and those have returned Staph aureus as of yesterday. She was started on vancomycin this morning and appears to be tolerating this well. Her white blood cell count has been normal. She did have a transthoracic echocardiogram yesterday which was negative for vegetation. An orthopedic evaluation is pending. She has limited review of systems secondary to language barrier; however, via interpretation, she denies any back pain at this time and states overall it is improved. She is denying any fevers or chills. She is tolerating vancomycin well. She has not had any recent procedures or dental work that is obtained through history. PAST MEDICAL HISTORY: Diabetes and hypertension. ALLERGIES: She has no known drug allergies. FAMILY HISTORY: Noncontributory with the exception of her father with brucellosis sometime ago. SOCIAL HISTORY: Negative for tobacco use, alcohol use or drug use. She is and lives with family here in the [place] but does travel back to [place] intermittently. CURRENT MEDICATIONS: Include Rocephin, vancomycin, Gadavist, hydralazine, Tylenol, milk of magnesia, Ambien, Zofran, morphine, MiraLax. PHYSICAL EXAMINATION: VITAL SIGNS: She has been afebrile in the last 24 hours; however, she did have an isolated fever of 38 degrees upon admission, pulse 85, respiratory rate is 20, blood pressure 166/79, oxygen saturation is 90-94% on room air. GENERAL: She is awake, alert and oriented. She is in no acute distress. HEENT: Mucous membranes are moist. Extraocular muscles are intact. HEART: Regular. I do not appreciate a murmur. LUNGS: Clear bilaterally. ABDOMEN: Soft, nontender, nondistended. EXTREMITIES: There is no lower extremity edema. She is able to move all extremities without difficulty. SKIN: There is no rash or open lesions of the skin. LABORATORY STUDIES: CBC today reveals a white blood cell count of 7.1, hemoglobin 9, platelets are 243. Sed rate on the is 82. Chemistry panel today reveals sodium of 142, potassium 3.9, chloride 108, bicarbonate 30, BUN is 21, creatinine 1.1, glucose is 93. LFTs are within normal limits on the . Procalcitonin on the was 0.1. CRP was elevated at 5.3 on admission. Bartonella antibodies are pending. QuantiFERON is pending as well. Urinalysis on the showed trace leukocyte esterase, 1-5 WBCs and no bacteria. Blood cultures from the are growing Staph aureus with pending sensitivities. A fungal blood culture is pending. No repeat blood cultures have been ordered. Lumbar spine MRI is as above. Echocardiogram on the was negative. ASSESSMENT AND PLAN: Staphylococcus aureus septicemia with lumbar discitis and vertebral osteomyelitis with psoas abscess. She will be continued on broad spectrum antibiotics. Repeat blood cultures will be obtained today. An orthopedic evaluation is pending. If there is any concern for neurologic compromise, transfer would be warranted for neurosurgical evaluation; however, she is able to move all extremities at this time and will require close monitoring of this. We will follow along with you. Thank you for this consultation.
[2016-12-05 15:57] VITALS: BP 159/84; PULSE 95; TEMP 37.1; O2SAT 92
--- NOTE | 2016-12-05 19:12 | Progress Note ---
Subjective Date of Service: Dec 05, 2016. Subjective Pt evaluation today including: conversation w/ patient, physical exam, chart review, lab review, review of inpatient medication list Problem List Medical Problems: (1) Hypotension, unspecified Status: Acute (2) Osteomyelitis of low back Status: Acute Review of Systems Constitutional: No see HPI, No fever, No chills, No sweats, No weight loss, No weakness, No fatigue, No problem reported Eyes: No see HPI, No worsening of vision, No eye pain, No redness, No discharge , No diplopia, No problem reported ENT: No see HPI, No hearing loss, No unusual epistaxis, No nasal symptoms, No sore throat, No tinnitus, No dental problems, No trouble swallowing, No problem reported Respiratory: No see HPI, No cough, No sputum, No wheezing, No shortness of breath, No dyspnea on exertion, No dyspnea at rest, No hemoptysis, No problem reported Cardiac: No see HPI, No chest pain, No orthopnea, No PND, No edema, No claudication, No palpitations, No problem reported Abdomen: No see HPI, No pain, No nausea, No vomiting, No diarrhea, No constipation, No GI bleeding, No problem reported Musculoskeletal: No see HPI, No joint pain, No muscle pain, No swelling, No calf pain, No problem reported Neurologic: No see HPI, No memory loss, No paralysis, No weakness, No numbness/ tingling, No vertigo, No balance problems, No problem reported Psychiatric: No see HPI, No depression symptoms, No anhedonism, No anxiety, No insomnia, No substance abuse, No problem reported Heme: No see HPI, No abnormal bleeding/bruising, No clotting problems, No swollen lymph nodes, No night sweats, No problem reported Endo: No see HPI, No fatigue, No excessive thirst, No excessive urination, No problem reported Skin: No see HPI, No rash, No itch, No new/changing skin lesions, No color change, No bleeding, No problem reported Objective Vital Signs Date Time Temp Pulse Resp B/P (MAP) Pulse Ox O2 Delivery O2 Flow Rate FiO2 12/05/16 16:00 Room Air 12/05/16 15:57 37.1 95 18 159/84 (109) 92 Room Air 12/05/16 12:16 172/81 (111) 12/05/16 12:00 Room Air 12/05/16 11:31 37.0 81 18 199/87 (124) 90 Room Air 199/90 (126) 12/05/16 07:45 Room Air 12/05/16 04:25 37.4 85 20 166/79 (108) 90 Room Air 12/05/16 04:00 Room Air 12/05/16 00:00 Room Air 12/04/16 23:19 36.7 83 18 154/74 (100) 90 Room Air 12/04/16 20:00 94 Room Air 12/04/16 20:00 Room Air Physical Exam General Appearance: WD/WN, no apparent distress Eyes: normal inspection, EOMI ENT: normal ENT inspection, hearing grossly normal Neck: supple Respiratory/Chest: chest non-tender, lungs clear, normal breath sounds, no respiratory distress Cardiovascular: regular rate, rhythm, no edema, no gallop, no JVD, no murmur Abdomen: normal bowel sounds, non tender, soft Extremities: normal range of motion, non-tender, normal inspection, no pedal edema 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, no motor/sensory deficits, alert, normal mood/affect, oriented x 3 Skin: normal color, warm/dry, no rash Laboratory Results Last 24 Hours Test 12/04/16 20:35 12/05/16 06:41 12/05/16 07:26 12/05/16 11:38 Bedside Glucose 177 mg/dl 93 mg/dl 81 mg/dl White Blood Count 7.16 K/uL Red Blood Count 2.93 M/uL Hemoglobin 9.0 g/dL Hematocrit 27.4 % Mean Corpuscular Volume 93.5 fL Mean Corpuscular Hemoglobin 30.7 pg Mean Corpuscular Hemoglobin Concent 32.8 g/dl Platelet Count 243 K/uL Mean Platelet Volume 7.9 fL Neutrophils (%) (Auto) 71.1 % Lymphocytes (%) (Auto) 19.6 % Monocytes (%) (Auto) 7.5 % Eosinophils (%) (Auto) 1.1 % Basophils (%) (Auto) 0.3 % Neutrophils # (Auto) 5.09 K/uL Lymphocytes # (Auto) 1.40 K/uL Monocytes # (Auto) 0.54 K/uL Eosinophils # (Auto) 0.08 K/uL Basophils # (Auto) 0.02 K/uL RDW Standard Deviation 50.5 fL RDW Coefficient of Variation 14.8 % Immature Granulocyte % (Auto) 0.4 % Immature Granulocyte # (Auto) 0.03 K/uL Sodium Level 142 mmol/L Potassium Level 3.9 mmol/L Chloride Level 108 mmol/L Carbon Dioxide Level 30 mmol/L Anion Gap 4.0 mmol/L Blood Urea Nitrogen 21 mg/dl Creatinine 1.10 mg/dl Est Creatinine Clear Calc Drug Dose 46.6 ml/min Estimated GFR () 58.1 Estimated GFR (Non- 50.1 BUN/Creatinine Ratio 18.9 Random Glucose 87 mg/dl Estimated Average Glucose 137 mg/dl Hemoglobin A1c 6.4 % Calcium Level 8.1 mg/dl Magnesium Level 1.8 mg/dl Test 12/05/16 16:28 Bedside Glucose 98 mg/dl Assessment and Plan The patient is a 71-year-old pleasant female from [facility], who recently developed back pain and fever in [facility]. came to [facility] and presented to the hospital. found to have osteomyelitis L3-L4 and L4-L5 and 1.5 cm abscess within the left iliopsoas muscle ASSESSMENT AND PLAN: 1. L3-L4-L5 discitis/osteomyelitis with 1.5 cm abscess within the left iliopsoas muscle was supposed to have a bone biopsy with Dr. Fermin today. Blood Cx grew staph aurous 2 out of 2 Bone biopsy was cancelled currently on canco / CTXN till sensitivity result comes back TTE showed no vegetation as she will be treated for at least [address] no need for DAGOBERTO (the only difference in managment if she had endocarditis is the optional gentamicin) consult Infectious Diseases appreciated, will defer further Abx management to them. all brucellosis labs are cancelled pending Fungitell and QuantiFERON Gold Diabetes mellitus, on metformin. Currently, we will hold metformin. Continue SSI hemoglobin A1c is 6.4 Hypertension,restarted lisinopril, hydrochlorothiazide. and coreg Deep venous thrombosis prophylaxis. Continued [facility] stay due to: other (lumbar abscess/osteomyelitis requiring IV medication and surgical intervention) Discharge planning: uncertain
[2016-12-05] MEDS ORDERED: HEPARIN SOD IV SCH (19:15)
[2016-12-05] MEDS ORDERED: [UNRECOGNIZED DRUG - OTHER] IV SCH (19:15)
[2016-12-05 19:16] VITALS: BP 163/80; PULSE 98; TEMP 37.4; O2SAT 93
[2016-12-05] MEDS: CARVEDILOL 6.25 MG TAB PO SCH (21:02)
[2016-12-05] MEDS: HEPARIN SOD 5000 UNIT/0.5 ML CARP SQ SCH (22:03)
[2016-12-06] VITALS (10 sets, daily range): BP systolic 118–189; BP diastolic 65–87; PULSE 71–78; TEMP 36.8–37.8; O2SAT 90–94
[2016-12-06] MEDS: VANCOMYCIN INJ 1,100 MG in SODIUM CHLORIDE 0.9% 250ML 250 ML IV SCH (04:22)
[2016-12-06] MEDS: SODIUM CHLORIDE 0.9% 1000ML 1,000 ML IV SCH (06:22)
[2016-12-06] MEDS: CARVEDILOL 6.25 MG TAB PO SCH ×2 (07:57→21:00)
[2016-12-06] MEDS: LISINOPRIL/HCTZ 10/12.5MG TAB PO SCH (07:57)
[2016-12-06] MEDS: INSULIN ASPART 100 UNITS/ML 3 ML PEN SC SCH ×4 (07:59→21:04)
[2016-12-06] MEDS: HEPARIN SOD 5000 UNIT/0.5 ML CARP SQ SCH ×2 (07:59→21:05)
[2016-12-06 09:07] LABS: BASO % 0.5 %; BASO ABS # 0.04 K/uL (0-0.2); COMPLETE YES; HEMATOCRIT 30.8 % (37-47); IG% 0.2 %; LYMPH % 17.4 %; LYMPH ABS # 1.51 K/uL (1.2-3.4); MEAN CELL VOLUME 92.5 fL (80-100); MEAN CORPUSCULAR HEMOGLOBIN 31.2 pg (25-34); MEAN CORPUSCULAR HGB CONC 33.8 g/dl (32-36); MEAN PLATELET VOLUME 8.6 fL (7.4-10.4); MONO % 7.9 %; PLATELET COUNT 300 K/uL (130-400); RED BLOOD COUNT 3.33 M/uL (4.2-5.4)
--- NOTE | 2016-12-06 09:18 | Medical Student: [facility] ---
Med Student Progress Note Date of Service Dec 06, 2016. Subjective Pt evaluation today including: conversation w/ patient (used translation services) Pain: Minimal, much better today Gabriela is feeling better today. She says the back pain is much better and she does not feel she needs pain medication at this time. In general, she is very grateful for the treatment she has received and was tearful when discussing this. She mentioned how she felt that back in [facility] they did not do enough for her. Her only complaint today is that her right arm is swollen and in some mild discomfort as a result of her IV infiltrating. She mentions her family brought in CerRx for her and she is going to try these to help her with bowel movements, and if she still has difficulty then she will ask for medications to help her in having bowel movements. She also mentions that Isidra should be stopping in today to discuss plans and decision making with the medical team. Review of Systems Constitutional: + see HPI, No fever, No chills, No sweats, No weight loss, No weakness, No fatigue Eyes: No problem reported ENT: No problem reported Respiratory: No cough, No sputum, No wheezing, No shortness of breath, No dyspnea on exertion, No dyspnea at rest, No problem reported Cardiac: No chest pain, No orthopnea, No PND, No edema, No problem reported Abdomen: + constipation (Reports not having a BM yesterday. Family brought in CerRx for her.), No pain, No nausea, No vomiting, No diarrhea Musculoskeletal: + swelling (Right arm, due to IV infiltration) Objective Vital Signs Date Time Temp Pulse Resp B/P (MAP) Pulse Ox O2 Delivery O2 Flow Rate FiO2 12/06/16 08:38 Room Air 12/06/16 07:08 36.8 73 18 189/75 (113) 94 Room Air 12/06/16 04:15 37.6 77 18 183/65 (104) 92 Room Air 12/06/16 04:00 Room Air 12/06/16 00:02 37.3 78 18 175/79 (111) 93 Room Air 12/06/16 00:00 Room Air 12/05/16 20:33 Room Air 12/05/16 19:16 37.4 98 20 163/80 (107) 93 Room Air 12/05/16 16:00 Room Air 12/05/16 15:57 37.1 95 18 159/84 (109) 92 Room Air 12/05/16 12:16 172/81 (111) 12/05/16 12:00 Room Air 12/05/16 11:31 37.0 81 18 199/87 (124) 90 Room Air 199/90 (126) Physical Exam General Appearance: WD/WN (Patient appears very lively and in good spirits today), no apparent distress ENT: hearing grossly normal Neck: no JVD, trachea midline Respiratory/Chest: chest non-tender, lungs clear, normal breath sounds, no respiratory distress, no accessory muscle use Cardiovascular: regular rate, rhythm, no edema, no gallop, no JVD, no murmur Extremities: no pedal edema Neurologic/Psychiatric: alert, normal mood/affect, oriented x 3 Skin: normal color Comments: No splinter hemmorhages, janeway lesions, or osler nodules seen on exam Laboratory Results Last 24 Hours Test 12/05/16 11:38 12/05/16 16:28 12/05/16 20:30 12/06/16 07:17 Bedside Glucose 81 mg/dl 98 mg/dl 166 mg/dl 124 mg/dl Test 12/06/16 08:29 Assessment and Plan Assessment and Plan: Gabriela is a 71 yo montenegrin speaking female who presented for 2 months of back pain and intermittent fevers. She was admitted and has been receiving Vancomycin and Ceftriaxone via IV, and morphine as needed for pain. She was positive for S Aureus in a blood culture. Her most recent TTE showed no signs of endocarditis, and a DAGOBERTO was not performed. She has had no cardiac symptoms or febrile episodes. She has been hypertensive in the past day. Diskitis: Continue with Vancomycin and Ceftriaxone. Close observation for cardiac physical exam findings that may be suggestive of endocarditis. If she develops worsening sepsis-like symptoms consider DAGOBERTO. However if she were to develop infective endocarditis with S Aureus, in her setting the only therapy change is that gentamycin would be optional to add to her current treatment. She is already receiving adequate treatment for diskitis that would cover possible endocarditis were it to present. For this reason, I feel that DAGOBERTO is not needed at this time, unless symptoms become severe enough to consider surgical intervention in which visualization of the lesion would be necessary for surgical planning. Hypertension: Most recent antihypertensive medication given at approx 0800. Continue to monitor BP and adjust medications as needed. Diabetes: continue with sliding scale insulin, glucose checks, and diabetic diet I personally examined and interviewed the patient I discussed the above plan with medical student I wrote a separate note Chris Baca Continued [facility] stay due to: other (lumbar abscess/osteomyelitis requiring IV medication and surgical intervention) Discharge planning: uncertain
[2016-12-06 09:35] LABS: ALT/SGPT 20 U/L (12-78); BLOOD UREA NITROGEN 21 mg/dl (7-18); BUN/CREATININE RATIO 16.2 (10-20); CALCIUM 8.4 mg/dl (8.5-10.1); CARBON DIOXIDE 28 mmol/L (21-32); CHLORIDE 103 mmol/L (98-107); GLUCOSE 126 mg/dl (70-99); SODIUM 137 mmol/L (136-145)
[2016-12-06 09:37] LABS: ALB/GLOB RATIO 0.4 (0.9-2); ALKALINE PHOSPHATASE 40 U/L (45-117); PHOSPHORUS 3.2 mg/dl (2.5-4.9)
[2016-12-06 10:22] LABS: POTASSIUM 3.4 mmol/L (3.5-5.1)
[2016-12-06 10:34] LABS: FERRITIN 279.9 ng/ml (8.0-388.0); MAGNESIUM 1.7 mg/dl (1.8-2.4)
[2016-12-06] MEDS: NAFCILLIN SOD IV 2 GM in DEXTROSE 5% ADD-VANTAGE 100ML 100 ML IV SCH ×4 (11:21→21:38)
--- NOTE | 2016-12-06 13:10 | Progress Note ---
Subjective Date of Service: Dec 06, 2016. Subjective pt initial culture with MSSA, repeat pending. bone biopsy cancelled. tmax 37.6. wbc nml. no overnight events. Problem List Medical Problems: (1) Hypotension, unspecified Status: Acute (2) Osteomyelitis of low back Status: Acute Objective Vital Signs Date Time Temp Pulse Resp B/P (MAP) Pulse Ox O2 Delivery O2 Flow Rate FiO2 12/06/16 12:00 Room Air 12/06/16 11:43 36.9 75 18 183/87 (119) 93 Room Air 12/06/16 08:38 Room Air 12/06/16 07:45 Room Air 12/06/16 07:08 36.8 73 18 189/75 (113) 94 Room Air 12/06/16 04:15 37.6 77 18 183/65 (104) 92 Room Air 12/06/16 04:00 Room Air 12/06/16 00:02 37.3 78 18 175/79 (111) 93 Room Air 12/06/16 00:00 Room Air 12/05/16 20:33 Room Air 12/05/16 19:16 37.4 98 20 163/80 (107) 93 Room Air 12/05/16 16:00 Room Air 12/05/16 15:57 37.1 95 18 159/84 (109) 92 Room Air Laboratory Results Item Value Date Time Blood Culture - Final Complete 12/03/16 1415 Blood Staphylococcus Aureus Blood Culture - Final Complete 12/03/16 1430 Blood Staphylococcus Aureus Last 24 Hours Test 12/05/16 16:28 12/05/16 20:30 12/06/16 07:17 12/06/16 08:29 Bedside Glucose 98 mg/dl 166 mg/dl 124 mg/dl White Blood Count 8.70 K/uL Red Blood Count 3.33 M/uL Hemoglobin 10.4 g/dL Hematocrit 30.8 % Mean Corpuscular Volume 92.5 fL Mean Corpuscular Hemoglobin 31.2 pg Mean Corpuscular Hemoglobin Concent 33.8 g/dl Platelet Count 300 K/uL Mean Platelet Volume 8.6 fL Neutrophils (%) (Auto) 73.0 % Lymphocytes (%) (Auto) 17.4 % Monocytes (%) (Auto) 7.9 % Eosinophils (%) (Auto) 1.0 % Basophils (%) (Auto) 0.5 % Neutrophils # (Auto) 6.35 K/uL Lymphocytes # (Auto) 1.51 K/uL Monocytes # (Auto) 0.69 K/uL Eosinophils # (Auto) 0.09 K/uL Basophils # (Auto) 0.04 K/uL RDW Standard Deviation 49.6 fL RDW Coefficient of Variation 14.8 % Immature Granulocyte % (Auto) 0.2 % Immature Granulocyte # (Auto) 0.02 K/uL Absolute Reticulocyte Count 0.08 10^6/uL Percent Reticulocyte Count 2.4 % Sodium Level 137 mmol/L Potassium Level mmol/L Chloride Level 103 mmol/L Carbon Dioxide Level 28 mmol/L Anion Gap 6.0 mmol/L Blood Urea Nitrogen 21 mg/dl Creatinine 1.30 mg/dl Est Creatinine Clear Calc Drug Dose 39.4 ml/min Estimated GFR () 47.5 Estimated GFR (Non- 41.0 BUN/Creatinine Ratio 16.2 Random Glucose 126 mg/dl Calcium Level 8.4 mg/dl Phosphorus Level 3.2 mg/dl Magnesium Level mg/dl Total Bilirubin 0.5 mg/dl Aspartate Amino Transf (AST/SGOT) U/L Alanine Aminotransferase (ALT/SGPT) 20 U/L Alkaline Phosphatase 40 U/L Total Protein 7.6 gm/dl Albumin 2.0 gm/dl Globulin 5.6 gm/dl Albumin/Globulin Ratio 0.4 Test 12/06/16 09:54 12/06/16 11:34 Potassium Level 3.4 mmol/L Magnesium Level 1.7 mg/dl Iron Level 28 mcg/dl Total Iron Binding Capacity 120 mcg/dl Ferritin 279.9 ng/ml Aspartate Amino Transf (AST/SGOT) 20 U/L Bedside Glucose 125 mg/dl Assessment and Plan (1) MSSA (methicillin susceptible Staphylococcus aureus) septicemia Assessment & Plan: Now on Nafcillin per primay. repeat culture pending. No plan DAGOBERTO. will need min 6 weeks IV abx with weekly cbc,cmp, esr. Nafcillin may be difficult for home administration as is multiple times/day, would consider rocephin 2g IV daily or Dapto 6mg/kg daily as ease with once/day dosing. Continue to follow creat while on nafcillin. For MRI head today, follow results. If repeat blood culture negative, ok for picc placement. will need repeat lumbar imaging prior to d/c abx. would suggest repeat in next 6 weeks or so. (2) Osteomyelitis of low back (3) Discitis of lumbar region (4) Psoas abscess Continued [facility] stay due to: other (lumbar abscess/osteomyelitis requiring IV medication and surgical intervention) Discharge planning: uncertain
[2016-12-06] MEDS: AMLODIPINE BESYLATE 5 MG TAB PO SCH (13:38)
--- NOTE | 2016-12-06 14:09 | Pharmacy Progress Note ---
Pharmacy Glycemic Sign Off Nt Date of Service Dec 06, 2016. Assessment & Plan ASSESSMENT: * Pharmacy was consulted by Chintna Wiley PA-C on 12/04/16 for glycemic control and to write orders per [facility] inpatient glycemic control protocol. * Major changes made by pharmacy to antidiabetic regimen include: * Holding outpatient antidiabetic med of Metformin and initiating weight based SSI/bolus insulin with NovoLog ACHS * Patient has been receiving/requiring 0-4 units of insulin per day for adequate glycemic control * BSGs ranging 81 -166 mg/dl * Regimen has only required minor adjustments over the past 48hrs to achieve this level of control * Do not anticipate further changes in patient status that would quickly deteriorate glycemic control (i.e. patient to be NPO for upcoming procedure, steroids tapering, starting tube feedings, etc). * Please see recommendations for outpatient antidiabetic regimen below. PLAN FOR INPATIENT GLYCEMIC CONTROL: No changes needed to current regimen. * No basal insulin needed * Continue NovoLog per scale ACHS/Q6hrs while NPO * Goal range = 110 140 mg/dl * CF = 30 mg/dl/unit * CR = 1 unit for ever 15 g CHO consumed * A1c added to discharge instructions to be communicated to PCP. * Pharmacy is signing off of glycemic consult and will no longer be making adjustments to inpatient regimen. Please feel free to re-consult if needed. Thank you. DISCHARGE RECOMMENDATIONS: * A1c 6.4 % on 12/05/16 * No changes needed to outpatient regimen. Pt may continue Metformin 500mg PO BIDM at discharge.
[2016-12-06] MEDS ORDERED: GADAVIST IV PRN (17:15)
--- NOTE | 2016-12-06 17:15 | DIAGNOSTIC IMAGING REPORT ---
MRI OF THE BRAIN COMBO CLINICAL HISTORY: Headache. COMPARISON STUDY: No priors. TECHNIQUE: MRI of the brain was performed utilizing various T1 and T2-weighted sequences in the axial, sagittal, and coronal planes. Contrast-enhanced sequences were acquired following the administration of 7 cc of Gadavist. FINDINGS: Brain parenchyma: There are age-related involutional changes noting moderate patchy subcortical and periventricular microangiopathic disease. Chronic lacunar infarcts are identified in the right caudate head and the right cerebellar hemisphere. There is no hemorrhage or mass effect. There is no restricted diffusion to suggest acute ischemia. No enhancing mass lesion is identified on the postcontrast images. Lawrence-white matter differentiation is preserved. No extra-axial fluid collection is seen. The cerebellar tonsils are normal in configuration. Ventricles, sulci, and cisterns: Prominent secondary to involutional change. Pituitary and sella: Unremarkable. Intracranial vasculature: Normal flow voids are maintained at the skull base. Orbits: The bony orbits are grossly intact. Orbital contents are normal in appearance. Sinuses and mastoids: There is a large retention cyst in the left maxillary antrum. Trace mucosal thickening is seen within the maxillary and sphenoid sinuses. There is a trace right mastoid effusion. Calvarium: Unremarkable. Cervical cord: Partially visualized cervical spinal cord is normal in morphology and signal intensity. IMPRESSION: Senescent changes as above with no acute intracranial abnormality. Electronically signed by: Chintan Lopez M.D. 12/06/2016 5:14 PM Dictated Date/Time: 12/06/2016 5:10 PM
--- NOTE | 2016-12-06 19:15 | Progress Note ---
Subjective Date of Service: Dec 06, 2016. Subjective Pt evaluation today including: conversation w/ patient, conversation w/ family , physical exam, chart review, lab review, review of inpatient medication list Problem List Medical Problems: (1) Hypotension, unspecified Status: Acute (2) Osteomyelitis of low back Status: Acute Review of Systems Constitutional: No see HPI, No fever, No chills, No sweats, No weight loss, No weakness, No fatigue, No problem reported Eyes: No see HPI, No worsening of vision, No eye pain, No redness, No discharge , No diplopia, No problem reported ENT: No see HPI, No hearing loss, No unusual epistaxis, No nasal symptoms, No sore throat, No tinnitus, No dental problems, No trouble swallowing, No problem reported Respiratory: No see HPI, No cough, No sputum, No wheezing, No shortness of breath, No dyspnea on exertion, No dyspnea at rest, No hemoptysis, No problem reported Cardiac: No see HPI, No chest pain, No orthopnea, No PND, No edema, No claudication, No palpitations, No problem reported Abdomen: No see HPI, No pain, No nausea, No vomiting, No diarrhea, No constipation, No GI bleeding, No problem reported Musculoskeletal: No see HPI, No joint pain, No muscle pain, No swelling, No calf pain, No problem reported Neurologic: No see HPI, No memory loss, No paralysis, No weakness, No numbness/ tingling, No vertigo, No balance problems, No problem reported Psychiatric: No see HPI, No depression symptoms, No anhedonism, No anxiety, No insomnia, No substance abuse, No problem reported Heme: No see HPI, No abnormal bleeding/bruising, No clotting problems, No swollen lymph nodes, No night sweats, No problem reported Endo: No see HPI, No fatigue, No excessive thirst, No excessive urination, No problem reported Skin: No see HPI, No rash, No itch, No new/changing skin lesions, No color change, No bleeding, No problem reported Objective Vital Signs Date Time Temp Pulse Resp B/P (MAP) Pulse Ox O2 Delivery O2 Flow Rate FiO2 12/06/16 18:52 37.0 77 16 118/69 (85) 90 12/06/16 16:08 74 12/06/16 15:29 37.8 74 152/72 (98) 12/06/16 12:00 Room Air 12/06/16 11:43 36.9 75 18 183/87 (119) 93 Room Air 12/06/16 08:38 Room Air 12/06/16 07:45 Room Air 12/06/16 07:08 36.8 73 18 189/75 (113) 94 Room Air 12/06/16 04:15 37.6 77 18 183/65 (104) 92 Room Air 12/06/16 04:00 Room Air 12/06/16 00:02 37.3 78 18 175/79 (111) 93 Room Air 12/06/16 00:00 Room Air 12/05/16 20:33 Room Air 12/05/16 19:16 37.4 98 20 163/80 (107) 93 Room Air Physical Exam General Appearance: WD/WN, no apparent distress Eyes: normal inspection, EOMI ENT: normal ENT inspection, hearing grossly normal Neck: supple Respiratory/Chest: chest non-tender, lungs clear, normal breath sounds, no respiratory distress, no accessory muscle use Cardiovascular: regular rate, rhythm, no edema, no gallop, no JVD, no murmur Abdomen: normal bowel sounds, non tender, soft, no organomegaly Extremities: normal range of motion, non-tender, normal inspection, no pedal edema Neurologic/Psychiatric: intelligence intern II-XII nml as tested, no motor/sensory deficits, alert, normal mood/affect, oriented x 3 Skin: normal color, warm/dry, no rash Laboratory Results Last 24 Hours Test 12/05/16 20:30 12/06/16 07:17 12/06/16 08:29 12/06/16 09:54 Bedside Glucose 166 mg/dl 124 mg/dl White Blood Count 8.70 K/uL Red Blood Count 3.33 M/uL Hemoglobin 10.4 g/dL Hematocrit 30.8 % Mean Corpuscular Volume 92.5 fL Mean Corpuscular Hemoglobin 31.2 pg Mean Corpuscular Hemoglobin Concent 33.8 g/dl Platelet Count 300 K/uL Mean Platelet Volume 8.6 fL Neutrophils (%) (Auto) 73.0 % Lymphocytes (%) (Auto) 17.4 % Monocytes (%) (Auto) 7.9 % Eosinophils (%) (Auto) 1.0 % Basophils (%) (Auto) 0.5 % Neutrophils # (Auto) 6.35 K/uL Lymphocytes # (Auto) 1.51 K/uL Monocytes # (Auto) 0.69 K/uL Eosinophils # (Auto) 0.09 K/uL Basophils # (Auto) 0.04 K/uL RDW Standard Deviation 49.6 fL RDW Coefficient of Variation 14.8 % Immature Granulocyte % (Auto) 0.2 % Immature Granulocyte # (Auto) 0.02 K/uL Absolute Reticulocyte Count 0.08 10^6/uL Percent Reticulocyte Count 2.4 % Sodium Level 137 mmol/L Potassium Level mmol/L 3.4 mmol/L Chloride Level 103 mmol/L Carbon Dioxide Level 28 mmol/L Anion Gap 6.0 mmol/L Blood Urea Nitrogen 21 mg/dl Creatinine 1.30 mg/dl Est Creatinine Clear Calc Drug Dose 39.4 ml/min Estimated GFR () 47.5 Estimated GFR (Non- 41.0 BUN/Creatinine Ratio 16.2 Random Glucose 126 mg/dl Calcium Level 8.4 mg/dl Phosphorus Level 3.2 mg/dl Magnesium Level mg/dl 1.7 mg/dl Total Bilirubin 0.5 mg/dl Aspartate Amino Transf (AST/SGOT) U/L 20 U/L Alanine Aminotransferase (ALT/SGPT) 20 U/L Alkaline Phosphatase 40 U/L Total Protein 7.6 gm/dl Albumin 2.0 gm/dl Globulin 5.6 gm/dl Albumin/Globulin Ratio 0.4 Iron Level 28 mcg/dl Total Iron Binding Capacity 120 mcg/dl Ferritin 279.9 ng/ml Test 12/06/16 11:34 12/06/16 16:34 Bedside Glucose 125 mg/dl 157 mg/dl Assessment and Plan The patient is a 71-year-old pleasant female from [facility], who recently developed back pain and fever in [facility]. came to [facility] and presented to the hospital. found to have osteomyelitis L3-L4 and L4-L5 and 1.5 cm abscess within the left iliopsoas muscle ASSESSMENT AND PLAN: 1. L3-L4-L5 discitis/osteomyelitis with 1.5 cm abscess within the left iliopsoas muscle was supposed to have a bone biopsy with Dr. Fermin today. Blood Cx grew staph aurous 2 out of 2 Bone biopsy was cancelled currently on Nafcillin , DC vanco / CTXN , needs a PICC line as soon as blood Cx clears, recheck in am TTE showed no vegetation as she will be treated for at least [address] no need for DAGOBERTO (the only difference in management if she had endocarditis is the optional gentamicin) consult Infectious Diseases appreciated, will defer further Abx management to them. all brucellosis labs are cancelled pending Fungitell and QuantiFERON Gold sent prior to positive Cx Diabetes mellitus, on metformin. Currently, we will hold metformin. Continue SSI hemoglobin A1c is 6.4 Hypertension,restarted lisinopril, hydrochlorothiazide. and coreg Deep venous thrombosis prophylaxis. Continued [facility] stay due to: other (lumbar abscess/osteomyelitis requiring IV medication and surgical intervention) Discharge planning: uncertain
[2016-12-06] MEDS ORDERED: VANCOMYCIN TROUGH SCH (21:30)
[2016-12-07] VITALS (8 sets, daily range): BP systolic 134–182; BP diastolic 69–82; PULSE 67–76; TEMP 36.6–37; O2SAT 92–94
[2016-12-07] MEDS: NAFCILLIN SOD IV 2 GM in DEXTROSE 5% ADD-VANTAGE 100ML 100 ML IV SCH ×6 (01:32→22:27)
[2016-12-07] MEDS: SODIUM CHLORIDE 0.9% 1000ML 1,000 ML IV SCH ×2 (01:33→22:27)
[2016-12-07 07:03] LABS: BASO % 0.7 %; BASO ABS # 0.03 K/uL (0-0.2); EOS % 1.4 %; HEMATOCRIT 26.3 % (37-47); IG% 0.2 %; LYMPH % 24.3 %; LYMPH ABS # 1.06 K/uL (1.2-3.4); MEAN CELL VOLUME 90.7 fL (80-100); MEAN CORPUSCULAR HEMOGLOBIN 30.7 pg (25-34); MEAN CORPUSCULAR HGB CONC 33.8 g/dl (32-36); MONO % 8.9 %; NEUT % 64.5 %; PLATELET COUNT 231 K/uL (130-400); WHITE BLOOD COUNT 4.37 K/uL (4.8-10.8)
[2016-12-07 07:28] LABS: CALCIUM 7.7 mg/dl (8.5-10.1); CREATININE 1.3 mg/dl (0.60-1.20); MAGNESIUM 1.8 mg/dl (1.8-2.4); POTASSIUM 2.9 mmol/L (3.5-5.1)
[2016-12-07 07:37] LABS: ALB/GLOB RATIO 0.4 (0.9-2); COMPLETE YES
[2016-12-07] MEDS: CARVEDILOL 6.25 MG TAB PO SCH ×2 (08:26→21:02)
[2016-12-07] MEDS: LISINOPRIL/HCTZ 10/12.5MG TAB PO SCH (08:27)
[2016-12-07] MEDS: INSULIN ASPART 100 UNITS/ML 3 ML PEN SC SCH ×4 (08:30→21:00)
[2016-12-07] MEDS: HEPARIN SOD 5000 UNIT/0.5 ML CARP SQ SCH ×2 (08:31→21:06)
[2016-12-07] MEDS ORDERED: POTASSIUM CHLORIDE 10 MEQ TABCR PO STA (08:50)
[2016-12-07] MEDS: AMLODIPINE BESYLATE 5 MG TAB PO SCH (09:49)
[2016-12-07] MEDS: POTASSIUM CHLR 10 MEQ / WTR 10 MEQ in PREMIXED WATER 100 ML IV SCH ×2 (09:49→11:10)
--- NOTE | 2016-12-07 14:14 | Orthopedic Consultation ---
Orthopedic Consultation Date of Consultation: Dec 07, 2016. Attending Physician: Fabio Alex MD Reason for Consultation: Lumbar discitis History of Present Illness This is a 71-year-old female who speaks only Taiwanese. Her grandson this at the bedside as as a translator/interpreter. She describes back pain progressive over the past 2 months. She been [place] and sent back to [facility] for further treatment. At this time she complains of back pain radiating into the left flank. No leg pain. She denies any leg weakness. She describes significant pain with any ambulation or transfers. While at rest she is recently comfortable. Past Medical/Surgical History Medical Problems: (1) Hypotension, unspecified Status: Acute (2) Osteomyelitis of low back Status: Acute Family History Diabetes mellitus Hypertension Social History Smoking Status: Never Smoker Smokeless Tobacco Use: No Drug Use: none Marital Status: Housing Status: lives with significant other Occupation Status: retired Allergies Coded Allergies: No Known Allergies (Unverified , 07/31/15) Home Medications Scheduled Lisinopril/Hctz (Zestoretic 20MG/12.5MG), 1 TAB PO BID Metformin Hcl (Glucophage), 500 MG PO BID Scheduled PRN Ibuprofen (Advil), 200-600 MG PO Q4H PRN for Pain Current Inpatient Medications Current Inpatient Medications Medications (Trade) Dose Ordered Sig/Oseas Route Start Time Stop Time Status Last Admin Dose Admin Sodium Chloride 1,000 ml @ 50 mls/hr Q20H IV 12/03/16 18:04 01/02/17 18:03 12/07/16 01:33 50 MLS/HR Acetaminophen (Tylenol Tab) 650 mg Q4H PRN PO 12/03/16 18:15 01/02/17 18:14 12/06/16 15:32 650 MG Magnesium Hydroxide (Milk Of Magnesia Susp) 30 ml Q12H PRN PO 12/03/16 18:15 01/02/17 18:14 12/07/16 08:30 30 ML Zolpidem Tartrate (Ambien Tab) 5 mg HSZ PRN PO 12/03/16 18:15 01/02/17 18:14 Ondansetron HCl (Zofran Inj) 4 mg Q6H PRN IV 12/03/16 18:15 01/02/17 18:14 Morphine Sulfate (MoRPHine SULFATE INJ) 2 mg Q30M PRN IV 12/03/16 18:15 12/17/16 18:14 12/04/16 16:15 2 MG Polyethylene (Miralax Powder Packet) 17 gm DAILY PRN PO 12/03/16 18:15 01/02/17 18:14 Hydralazine HCl (HydrALAZINE INJ) 10 mg Q6H PRN IV. 12/03/16 19:45 01/02/17 19:44 12/05/16 11:31 10 MG Gadobutrol (Gadavist) 7 mmol UD PRN IV 12/04/16 13:45 12/08/16 13:44 Insulin Aspart (novoLOG ASPART) SLIDING SCALE If C... ACHS SC 12/04/16 17:00 01/03/17 16:59 12/07/16 12:42 4 UNITS Glucose (Glucose 40% Gel) 15-30 GRAMS 15 GRAMS... UD PRN PO 12/04/16 17:00 01/03/17 16:59 Glucose (Glucose Chew Tab) 4-8 Tablets 4 Tabl... UD PRN PO 12/04/16 17:00 01/03/17 16:59 Dextrose (Dextrose 50% 50ML Syringe) 25-50ML OF 50% DW IV FOR... UD PRN IV 12/04/16 17:00 01/03/17 16:59 Glucagon (Glucagon Inj) 1 mg UD PRN SQ 12/04/16 17:00 01/03/17 16:59 Carvedilol (Coreg Tab) 6.25 mg BID PO 12/05/16 21:00 01/04/17 20:59 12/07/16 08:26 6.25 MG HCTZ/Lisinopril (Prinzide 10-12.5MG Tab) 1 tab QAM PO 12/05/16 11:30 01/04/17 11:29 12/07/16 08:27 1 TAB Heparin Sodium (Porcine) (Heparin Sq 5000 Unit/0.5ml) 5,000 unit Q12 SQ 12/05/16 21:00 01/04/17 20:59 12/07/16 08:31 5,000 UNIT Nafcillin Sodium 2 gm/Dextrose 100 ml @ 100 mls/hr Q4@02,06,10,14,18,22 IV 12/06/16 11:00 12/20/16 09:59 12/07/16 14:03 100 MLS/HR Amlodipine Besylate (Norvasc Tab) 10 mg QAM PO 12/06/16 13:00 01/05/17 12:59 12/07/16 09:49 10 MG Gadobutrol (Gadavist) 7 mmol UD PRN IV 12/06/16 17:15 12/10/16 17:14 Physical Exam Date Time Temp Pulse Resp B/P (MAP) Pulse Ox O2 Delivery O2 Flow Rate FiO2 12/07/16 12:30 Room Air 12/07/16 11:34 36.9 74 16 134/70 (91) 92 12/07/16 08:30 36.6 68 16 168/82 (110) 94 12/07/16 07:45 Room Air 12/07/16 04:22 37.0 67 19 155/76 (102) 92 Room Air 12/07/16 04:00 Room Air 12/07/16 00:00 Room Air 12/06/16 23:55 37.0 71 20 151/73 (99) 92 Room Air 12/06/16 22:09 93 Room Air 12/06/16 18:52 37.0 77 16 118/69 (85) 90 12/06/16 16:08 74 12/06/16 16:00 93 Room Air 12/06/16 15:29 37.8 74 152/72 (98) Patient has reasonable plantarflexion dorsiflexion bilaterally. She sensation to light touch and cold bilaterally. She has significant discomfort with hip flexion on the left compared to the right. She has negative log roll. Overall she is alert and oriented and quite comfortable when supine. Laboratory Results Last 24 Hours Test 12/06/16 16:34 12/06/16 20:42 12/07/16 06:23 12/07/16 07:48 Bedside Glucose 157 mg/dl 166 mg/dl 122 mg/dl White Blood Count 4.37 K/uL Red Blood Count 2.90 M/uL Hemoglobin 8.9 g/dL Hematocrit 26.3 % Mean Corpuscular Volume 90.7 fL Mean Corpuscular Hemoglobin 30.7 pg Mean Corpuscular Hemoglobin Concent 33.8 g/dl Platelet Count 231 K/uL Mean Platelet Volume 8.0 fL Neutrophils (%) (Auto) 64.5 % Lymphocytes (%) (Auto) 24.3 % Monocytes (%) (Auto) 8.9 % Eosinophils (%) (Auto) 1.4 % Basophils (%) (Auto) 0.7 % Neutrophils # (Auto) 2.82 K/uL Lymphocytes # (Auto) 1.06 K/uL Monocytes # (Auto) 0.39 K/uL Eosinophils # (Auto) 0.06 K/uL Basophils # (Auto) 0.03 K/uL RDW Standard Deviation 48.3 fL RDW Coefficient of Variation 14.7 % Immature Granulocyte % (Auto) 0.2 % Immature Granulocyte # (Auto) 0.01 K/uL Red Blood Cell Morphology Unremarkable Sodium Level 140 mmol/L Potassium Level 2.9 mmol/L Chloride Level 105 mmol/L Carbon Dioxide Level 30 mmol/L Anion Gap 5.0 mmol/L Blood Urea Nitrogen 22 mg/dl Creatinine 1.30 mg/dl Est Creatinine Clear Calc Drug Dose 39.4 ml/min Estimated GFR () 47.5 Estimated GFR (Non- 41.0 BUN/Creatinine Ratio 17.0 Random Glucose 132 mg/dl Calcium Level 7.7 mg/dl Magnesium Level 1.8 mg/dl Total Bilirubin 1.1 mg/dl Aspartate Amino Transf (AST/SGOT) 20 U/L Alanine Aminotransferase (ALT/SGPT) 17 U/L Alkaline Phosphatase 34 U/L Total Protein 6.1 gm/dl Albumin 1.7 gm/dl Globulin 4.4 gm/dl Albumin/Globulin Ratio 0.4 Test 12/07/16 11:30 Bedside Glucose 148 mg/dl Assessment & Plan Lumbar discitis with psoas abscess. Plan and discussion with the patient her grandson and medical doctors regarding her care. If expressed my concern regarding the size of the psoas abscess as well as evidence of a possible epidural collection of fluid most likely abscess. All she is neurologically intact at this time and appears to be responding to IV antibiotics my concern is she may require surgical debridement for which we would be unable to provide at this institution. She may also be a candidate for interventional radiology for drainage of the psoas abscess. With this in mind I'm recommending transferred to a tertiary care center. The patient and her grandson understand are considering their options.
[2016-12-07 14:15] LABS: QUANTIF TB AG-NIL 4.23 IU/ML; QUANTIFERON NIL 0.07 IU/ML
--- NOTE | 2016-12-07 14:59 | Progress Note ---
Subjective Date of Service: Dec 07, 2016. Subjective pt tolerating nafcillin, changed by primary service yesterday. repeat cultures remain negative. intermittent low grade fevers yesterday, tmax 37.8 at 15:30. wbc nml. s/p ortho eval, suggestion for transfer noted. MRI brain negative for acute abnormality. Problem List Medical Problems: (1) Hypotension, unspecified Status: Acute (2) Osteomyelitis of low back Status: Acute Objective Vital Signs Date Time Temp Pulse Resp B/P (MAP) Pulse Ox O2 Delivery O2 Flow Rate FiO2 12/07/16 12:30 Room Air 12/07/16 11:34 36.9 74 16 134/70 (91) 92 12/07/16 08:30 36.6 68 16 168/82 (110) 94 12/07/16 07:45 Room Air 12/07/16 04:22 37.0 67 19 155/76 (102) 92 Room Air 12/07/16 04:00 Room Air 12/07/16 00:00 Room Air 12/06/16 23:55 37.0 71 20 151/73 (99) 92 Room Air 12/06/16 22:09 93 Room Air 12/06/16 18:52 37.0 77 16 118/69 (85) 90 12/06/16 16:08 74 12/06/16 16:00 93 Room Air 12/06/16 15:29 37.8 74 152/72 (98) Laboratory Results Item Value Date Time Blood Culture - Preliminary Resulted 12/05/16 1059 Blood NO GROWTH TO DATE. Blood Culture - Preliminary Resulted 12/05/16 1050 Blood NO GROWTH TO DATE. Blood Culture - Final Complete 12/03/16 1430 Blood Staphylococcus Aureus Blood Culture - Final Complete 12/03/16 1415 Blood Staphylococcus Aureus Last 24 Hours Test 12/06/16 16:34 12/06/16 20:42 12/07/16 06:23 12/07/16 07:48 Bedside Glucose 157 mg/dl 166 mg/dl 122 mg/dl White Blood Count 4.37 K/uL Red Blood Count 2.90 M/uL Hemoglobin 8.9 g/dL Hematocrit 26.3 % Mean Corpuscular Volume 90.7 fL Mean Corpuscular Hemoglobin 30.7 pg Mean Corpuscular Hemoglobin Concent 33.8 g/dl Platelet Count 231 K/uL Mean Platelet Volume 8.0 fL Neutrophils (%) (Auto) 64.5 % Lymphocytes (%) (Auto) 24.3 % Monocytes (%) (Auto) 8.9 % Eosinophils (%) (Auto) 1.4 % Basophils (%) (Auto) 0.7 % Neutrophils # (Auto) 2.82 K/uL Lymphocytes # (Auto) 1.06 K/uL Monocytes # (Auto) 0.39 K/uL Eosinophils # (Auto) 0.06 K/uL Basophils # (Auto) 0.03 K/uL RDW Standard Deviation 48.3 fL RDW Coefficient of Variation 14.7 % Immature Granulocyte % (Auto) 0.2 % Immature Granulocyte # (Auto) 0.01 K/uL Red Blood Cell Morphology Unremarkable Sodium Level 140 mmol/L Potassium Level 2.9 mmol/L Chloride Level 105 mmol/L Carbon Dioxide Level 30 mmol/L Anion Gap 5.0 mmol/L Blood Urea Nitrogen 22 mg/dl Creatinine 1.30 mg/dl Est Creatinine Clear Calc Drug Dose 39.4 ml/min Estimated GFR () 47.5 Estimated GFR (Non- 41.0 BUN/Creatinine Ratio 17.0 Random Glucose 132 mg/dl Calcium Level 7.7 mg/dl Magnesium Level 1.8 mg/dl Total Bilirubin 1.1 mg/dl Aspartate Amino Transf (AST/SGOT) 20 U/L Alanine Aminotransferase (ALT/SGPT) 17 U/L Alkaline Phosphatase 34 U/L Total Protein 6.1 gm/dl Albumin 1.7 gm/dl Globulin 4.4 gm/dl Albumin/Globulin Ratio 0.4 Test 12/07/16 11:30 Bedside Glucose 148 mg/dl Assessment and Plan (1) MSSA (methicillin susceptible Staphylococcus aureus) septicemia Assessment & Plan: Now on Nafcillin per primay. repeat culture pending. No plan DAGOBERTO. will need min 6 weeks IV abx with weekly cbc,cmp, esr. Nafcillin may be difficult for home administration as is multiple times/day, would consider rocephin 2g IV daily or Dapto 6mg/kg daily as ease with once/day dosing. Continue to follow creat while on nafcillin. For MRI head today, follow results. If repeat blood culture negative, ok for picc placement. will need repeat lumbar imaging prior to d/c abx. would suggest repeat in next 6 weeks or so. Agree with ortho, if concern for psoas abscess in need of drainage or more concerning epidural collection in need of drainage or concern for cord compression would agree with transfer to tertiary center and neurosurgical eval. will continue abx. follow creat while on nafcillin, may benefit from change to dapto as this is once daily dosing as well as risk of interstitial nephritis with nafcillin intermediate. (2) Osteomyelitis of low back (3) Discitis of lumbar region (4) Psoas abscess Continued [facility] stay due to: other (lumbar abscess/osteomyelitis requiring IV medication and surgical intervention) Discharge planning: uncertain
--- NOTE | 2016-12-07 15:41 | Medical Student: [facility] ---
Med Student Progress Note Date of Service Dec 07, 2016. Subjective Pt evaluation today including: conversation w/ patient Pain: Continues to improve Using the interpretation services available, I had a discussion with Gabriela today. She says her pain continues to improve and she has no complaints today. She would often say that she trusts what we are doing and to "do what is needed ". I discussed with her the results of her MRI of the brain from yesterday. I spoke with her about our concern for her constipation, as she has not had a ( per I&O's) bowel movement since 12/02. She denies any other symptoms such as chest pain, fever, chills, n/v/d. I also spoke with Isidra on the phone today and she said she should be in today around 5pm. Review of Systems Constitutional: No fever, No chills, No sweats, No weakness, No fatigue, No problem reported ENT: No problem reported Respiratory: No cough, No sputum, No wheezing, No shortness of breath, No problem reported Cardiac: No chest pain, No PND, No edema, No claudication, No palpitations, No problem reported Abdomen: + constipation, No pain, No nausea, No vomiting, No diarrhea Objective Vital Signs Date Time Temp Pulse Resp B/P (MAP) Pulse Ox O2 Delivery O2 Flow Rate FiO2 12/07/16 08:30 36.6 68 16 168/82 (110) 94 12/07/16 07:45 Room Air 12/07/16 04:22 37.0 67 19 155/76 (102) 92 Room Air 12/07/16 04:00 Room Air 12/07/16 00:00 Room Air 12/06/16 23:55 37.0 71 20 151/73 (99) 92 Room Air 12/06/16 22:09 93 Room Air 12/06/16 18:52 37.0 77 16 118/69 (85) 90 12/06/16 16:08 74 12/06/16 16:00 93 Room Air 12/06/16 15:29 37.8 74 152/72 (98) 12/06/16 12:00 Room Air 12/06/16 11:43 36.9 75 18 183/87 (119) 93 Room Air Physical Exam General Appearance: WD/WN, no apparent distress ENT: hearing grossly normal, pharynx normal Neck: supple, no JVD, no carotid bruits, trachea midline Respiratory/Chest: chest non-tender, lungs clear, normal breath sounds, no respiratory distress, no accessory muscle use Cardiovascular: regular rate, rhythm, no edema, no gallop, no JVD, + systolic murmur (Holosystolic, non-radiating, heard best and Lower Left Sternal Border) Abdomen: non tender, soft, no organomegaly, no pulsatile mass, + abnormal bowel sounds (hyperactive bowel sounds) Extremities: non-tender, normal inspection (no splinter hemmorhages, no janeway lesions, no osler nodules) Neurologic/Psychiatric: alert, normal mood/affect, oriented x 3 Laboratory Results Last 24 Hours Test 12/06/16 11:34 12/06/16 16:34 12/06/16 20:42 12/07/16 06:23 Bedside Glucose 125 mg/dl 157 mg/dl 166 mg/dl White Blood Count 4.37 K/uL Red Blood Count 2.90 M/uL Hemoglobin 8.9 g/dL Hematocrit 26.3 % Mean Corpuscular Volume 90.7 fL Mean Corpuscular Hemoglobin 30.7 pg Mean Corpuscular Hemoglobin Concent 33.8 g/dl Platelet Count 231 K/uL Mean Platelet Volume 8.0 fL Neutrophils (%) (Auto) 64.5 % Lymphocytes (%) (Auto) 24.3 % Monocytes (%) (Auto) 8.9 % Eosinophils (%) (Auto) 1.4 % Basophils (%) (Auto) 0.7 % Neutrophils # (Auto) 2.82 K/uL Lymphocytes # (Auto) 1.06 K/uL Monocytes # (Auto) 0.39 K/uL Eosinophils # (Auto) 0.06 K/uL Basophils # (Auto) 0.03 K/uL RDW Standard Deviation 48.3 fL RDW Coefficient of Variation 14.7 % Immature Granulocyte % (Auto) 0.2 % Immature Granulocyte # (Auto) 0.01 K/uL Red Blood Cell Morphology Unremarkable Sodium Level 140 mmol/L Potassium Level 2.9 mmol/L Chloride Level 105 mmol/L Carbon Dioxide Level 30 mmol/L Anion Gap 5.0 mmol/L Blood Urea Nitrogen 22 mg/dl Creatinine 1.30 mg/dl Est Creatinine Clear Calc Drug Dose 39.4 ml/min Estimated GFR () 47.5 Estimated GFR (Non- 41.0 BUN/Creatinine Ratio 17.0 Random Glucose 132 mg/dl Calcium Level 7.7 mg/dl Magnesium Level 1.8 mg/dl Total Bilirubin 1.1 mg/dl Aspartate Amino Transf (AST/SGOT) 20 U/L Alanine Aminotransferase (ALT/SGPT) 17 U/L Alkaline Phosphatase 34 U/L Total Protein 6.1 gm/dl Albumin 1.7 gm/dl Globulin 4.4 gm/dl Albumin/Globulin Ratio 0.4 Test 12/07/16 07:48 Bedside Glucose 122 mg/dl Assessment and Plan Assessment and Plan: Gabriela is a 71 yo iranian speaking female who was admitted for 2 months of back pain with intermittent fever. Following imaging at admission, she was diagnosed with diskitis with left psoas muscle abscess formation. She is being treated with Nafcillin IV, Milk of magnesium, Sliding scale insulin, and prn pain management. The current concerns are diskitis, psoas abscess, constipation, and hypertension. Diskitis with left psoas muscle abscess: - Subjectively improving. - Ortho consult concerned about size of abscess and possibility for non- response to antibiotics. Ortho wants to plan for surgical intervention, however she would need transferred to [place] or [place] for the procedure to be performed. - Continue with IV Nafcillin - Continue to observe for signs suggestive of endocarditis - Discuss surgical options with family and make a group decision - Continue with current pain management Constipation: - No BM since 12/02 or longer. - Patient has tried dietary changes by consuming prunes brought in by family - Has been given milk of magnesia. - Physical exam notable for hyperactive bowels, non-distended and soft abdomen - Continue with milk of magnesia - Promote hydration - Consider withholding opioid pain management - If unresponsive, consider other laxative options - If continues to be unresponsive, possible concern for more concerning etiologies and consider imaging and more aggressive management. Hypertension: - BP has improved since yesterday but is still elevated - May be secondary to pain and discomfort - Continue with Hydralazine, Lisinopril, and amlodipine. Hesitant to increase any at this time, as she is somewhat controlled, and the pain and stress may be the underlying cause. Diabetes: - Continue with sliding scale insulin - Continue with diabetic diet Continued [facility] stay due to: other (lumbar abscess/osteomyelitis requiring IV medication and surgical intervention) Discharge planning: uncertain
[2016-12-07] MEDS: POLYETHYLENE (MIRALAX) 17 GM PACK PO SCH (21:01)
[2016-12-08] MEDS: NAFCILLIN SOD IV 2 GM in DEXTROSE 5% ADD-VANTAGE 100ML 100 ML IV SCH ×4 (01:37→14:00)
[2016-12-08 03:53] VITALS: BP 157/80; PULSE 68; TEMP 36.7; O2SAT 91
--- NOTE | 2016-12-08 05:15 | Progress Note ---
Subjective Date of Service: Dec 07, 2016. Subjective Pt evaluation today including: conversation w/ patient, conversation w/ family (grandNORA mitchell (Isidra)), physical exam, chart review, lab review, review of studies, conversation w/ sustainable design consultant (orthopedics), review of inpatient medication list Pain: back and left leg PO Intake: fair Voiding: no voiding problems patient continues with severe pain with movement at rest her pain is reasonable but still present c/o constipation seen by orthopedics and transfer to tertiary care recommended patient, POA, and grandson all agree with transfer she also is c/o fever and chills Problem List Medical Problems: (1) Hypotension, unspecified Status: Acute (2) Osteomyelitis of low back Status: Acute Review of Systems Constitutional: + fever, + chills, + fatigue Respiratory: No shortness of breath Cardiac: No chest pain Abdomen: No pain Objective Vital Signs Date Time Temp Pulse Resp B/P (MAP) Pulse Ox O2 Delivery O2 Flow Rate FiO2 12/07/16 20:21 94 Room Air 12/07/16 19:58 36.9 75 18 182/78 (112) 92 Room Air 12/07/16 16:00 94 Room Air 12/07/16 15:00 36.8 76 16 151/69 (96) 93 12/07/16 12:30 Room Air 12/07/16 11:34 36.9 74 16 134/70 (91) 92 12/07/16 08:30 36.6 68 16 168/82 (110) 94 12/07/16 07:45 Room Air 12/07/16 04:22 37.0 67 19 155/76 (102) 92 Room Air 12/07/16 04:00 Room Air 12/07/16 00:00 Room Air 12/06/16 23:55 37.0 71 20 151/73 (99) 92 Room Air 12/06/16 22:09 93 Room Air Physical Exam General Appearance: + mild distress (back - with movement) ENT: pharynx normal Neck: no JVD Respiratory/Chest: lungs clear, no respiratory distress, no accessory muscle use Cardiovascular: regular rate, rhythm, no gallop, + systolic murmur (2/6 CHAVEZ RUSB) Abdomen: normal bowel sounds, non tender, soft, no organomegaly Extremities: no pedal edema Neurologic/Psychiatric: no motor/sensory deficits (active flexion of both hips wnl; active flexion/extension of both feet wnl), alert, oriented x 3 Laboratory Results Last 24 Hours Test 12/07/16 06:23 12/07/16 07:48 12/07/16 11:30 12/07/16 16:23 White Blood Count 4.37 K/uL Red Blood Count 2.90 M/uL Hemoglobin 8.9 g/dL Hematocrit 26.3 % Mean Corpuscular Volume 90.7 fL Mean Corpuscular Hemoglobin 30.7 pg Mean Corpuscular Hemoglobin Concent 33.8 g/dl Platelet Count 231 K/uL Mean Platelet Volume 8.0 fL Neutrophils (%) (Auto) 64.5 % Lymphocytes (%) (Auto) 24.3 % Monocytes (%) (Auto) 8.9 % Eosinophils (%) (Auto) 1.4 % Basophils (%) (Auto) 0.7 % Neutrophils # (Auto) 2.82 K/uL Lymphocytes # (Auto) 1.06 K/uL Monocytes # (Auto) 0.39 K/uL Eosinophils # (Auto) 0.06 K/uL Basophils # (Auto) 0.03 K/uL RDW Standard Deviation 48.3 fL RDW Coefficient of Variation 14.7 % Immature Granulocyte % (Auto) 0.2 % Immature Granulocyte # (Auto) 0.01 K/uL Red Blood Cell Morphology Unremarkable Sodium Level 140 mmol/L Potassium Level 2.9 mmol/L Chloride Level 105 mmol/L Carbon Dioxide Level 30 mmol/L Anion Gap 5.0 mmol/L Blood Urea Nitrogen 22 mg/dl Creatinine 1.30 mg/dl Est Creatinine Clear Calc Drug Dose 39.4 ml/min Estimated GFR () 47.5 Estimated GFR (Non- 41.0 BUN/Creatinine Ratio 17.0 Random Glucose 132 mg/dl Calcium Level 7.7 mg/dl Magnesium Level 1.8 mg/dl Total Bilirubin 1.1 mg/dl Aspartate Amino Transf (AST/SGOT) 20 U/L Alanine Aminotransferase (ALT/SGPT) 17 U/L Alkaline Phosphatase 34 U/L Total Protein 6.1 gm/dl Albumin 1.7 gm/dl Globulin 4.4 gm/dl Albumin/Globulin Ratio 0.4 Bedside Glucose 122 mg/dl 148 mg/dl 131 mg/dl Test 12/07/16 20:40 Bedside Glucose 125 mg/dl Assessment and Plan 71yo female: 1. staph bacteremia and sepsis 2nd to L3-L5 discitis/osteomyelitis/phlegmon/ left sided psoas abscess - repeat blood cx's thus far negative. remains on nafcillin. echo w/o obvious endocarditis. seen by ortho - referral to tertiary care center recommended. will attempt transfer in AM. appreciate ortho and ID consultations. 2. hypokalemia - 2nd to HCTZ - replace, repeat K in am. Mag level was normal. 3. HTN - BPs under fair control. 4. T2DM - FSBS acceptable. 5. DVT proph - heparin BID. 6. constipation - add miralax BID. today's visit assisted by use of [place] banking services officer total time today 40 minutes including speaking with multiple family/friends & orthopedics Continued [facility] stay due to: inadequate oral pain control, ambulation difficulties, multiple IV medications needed, other (lumbar abscess/ osteomyelitis requiring IV medication and surgical intervention) Discharge planning: acute transfer
[2016-12-08 06:49] LABS: BASO % 1.1 %; BASO ABS # 0.05 K/uL (0-0.2); COMPLETE YES; EOS % 1.8 %; HEMATOCRIT 27.3 % (37-47); LYMPH % 28.3 %; LYMPH ABS # 1.26 K/uL (1.2-3.4); MEAN CORPUSCULAR HEMOGLOBIN 30.3 pg (25-34); MEAN CORPUSCULAR HGB CONC 33.3 g/dl (32-36); MEAN PLATELET VOLUME 7.8 fL (7.4-10.4); MONO % 9.2 %; NEUT % 59.6 %; PLATELET COUNT 240 K/uL (130-400); WHITE BLOOD COUNT 4.45 K/uL (4.8-10.8)
[2016-12-08 07:26] LABS: BUN/CREATININE RATIO 14.5 (10-20); CREATININE 1.3 mg/dl (0.60-1.20); POTASSIUM 3.4 mmol/L (3.5-5.1)
[2016-12-08 08:01] VITALS: BP 147/74; PULSE 75; TEMP 36.6; O2SAT 94
[2016-12-08] MEDS ORDERED: POTASSIUM CHLORIDE 10 MEQ TABCR PO ONE (09:00)
[2016-12-08] MEDS: CARVEDILOL 6.25 MG TAB PO SCH (09:35)
[2016-12-08] MEDS: LISINOPRIL/HCTZ 10/12.5MG TAB PO SCH (09:35)
[2016-12-08] MEDS: AMLODIPINE BESYLATE 5 MG TAB PO SCH (09:38)
[2016-12-08] MEDS: POLYETHYLENE (MIRALAX) 17 GM PACK PO SCH (09:38)
[2016-12-08] MEDS: INSULIN ASPART 100 UNITS/ML 3 ML PEN SC SCH ×2 (09:43→12:58)
[2016-12-08] MEDS: HEPARIN SOD 5000 UNIT/0.5 ML CARP SQ SCH (09:51)
[2016-12-08] MEDS ORDERED: FLV1 PO (10:36)
[2016-12-08] MEDS ORDERED: MRLP17 PO (10:36)
[2016-12-08] MEDS ORDERED: NRV5 PO (10:36)
[2016-12-08] MEDS ORDERED: [UNRECOGNIZED DRUG - CODE] IV (10:36)
[2016-12-08] MEDS ORDERED: LSN/10125 PO (10:36)
[2016-12-08] MEDS ORDERED: CRG625 PO (10:36)
--- NOTE | 2016-12-08 10:38 | Discharge Instructions ---
Discharge Instructions Date of Service Dec 08, 2016. Admission Reason for Admission: Diskitis Discharge Discharge Diagnosis / Problem: Lumbar spine discitis, phlegmon; psoas abscess on left Discharge Goals Goal(s): Decrease discomfort, Improve function, Increase independence, Improve disease control, Learn about illness, Diagnostic testing, Therapeutic intervention Activity Recommendations Activity Limitations: as noted below weightbearing as tolerated . Current Hospital Diet Patient's current hospital diet: Diabetes Type 2 Diet Discharge Diet Recommended Diet: Diabetes Type 2 Diet Procedures Procedures Performed: MRI lumbar spine MRI brain CAT scan of abdomen and pelvis Pending Studies Studies pending at discharge: yes List of pending studies: blood cultures Laboratory Results Hemoglobin A1c Test 12/05/16 06:41 Range/Units Estimated Average Glucose 137 mg/dl Hemoglobin A1c 6.4 H 4.5-5.6 % Medical Emergencies . Who to Call and When: Medical Emergencies: If at any time you feel your situation is an emergency, please call 911 immediately. . Non-Emergent Contact Non-Emergency issues call your: Surgeon (orthopedics) Call Non-Emergent contact if: temperature is above 100.5, your pain is not controlled, your pain is worsening, your pain is unusual for you, your pain is concerning you . . "Provider Documentation" section prepared by Fabio Alex. . VTE Core Measure Inpt VTE Proph given/why not?: Unfractionated heparin SQ
--- NOTE | 2016-12-08 10:55 | Discharge Summary ---
Discharge Summary Date of Service Dec 08, 2016. Discharge Summary Admission Date: Dec 03, 2016 at 18:51 Discharge Date: Dec 08, 2016 Discharge Disposition: Acute care facility ([facility]) Principal Diagnosis: lumbar spine discitis, phlegmon, and left-sided psoas abscess Problems/Secondary Diagnoses: 1. T2DM 2. HTN 3. constipation 4. +TB test 5. staph aureus bacteremia/septicemia 2nd to lumbar discitis 6. hypokalemia 7. small left-sided pleural effusion Procedures: 1. CT abd/pelvis: IMPRESSION: 1. Findings suggestive of L3-L4 discitis and osteomyelitis with left paravertebral infiltration extending into the psoas muscle. This may reflect phlegmon or paravertebral abscess. An MRI of the lumbar spine with and without contrast is recommended for confirmation as well as to evaluate for epidural component. A neoplastic process could appear similar although is considered much less likely. Findings discussed with Dr. Kunz at time of dictation. 2. No urinary calculi or hydronephrosis. 3. Cholelithiasis. 4. Small bilateral pleural effusions. 5. Small amount of ascites. 2. Lumbar spine MRI: IMPRESSION: 1. Findings consistent with osteomyelitis at L3 and L4. 2. Abnormal soft tissue lateral to the L3-L4 vertebral bodies with soft tissue extending to the left neuroforamina at L3-L4 and L4-L5. 3. This appearance consistent with discitis as well as osteomyelitis with associated soft tissue phlegmon. 4. 1.5 cm abscess within the left iliopsoas muscular musculature lateral to the L4 level of the lumbar spine. 5. Posterior paravertebral inflammatory change within the paraspinal musculature as well as involving the posterior facets at L4 and L5 6. The epidural component at L3 and L4 creates moderate impact upon the anterior aspect of the thecal sac. 3. MRI brain: normal, no masses. 4. echocardiogram: * -- Conclusions -- * Left ventricular systolic function is normal. * Grade I diastolic dysfunction, (abnormal relaxation pattern). * Right ventricular systolic pressure is elevated at 40-50mmHg. * Trace pericardial effusion * There is no evidence of a mass or vegetation. This does not rule out endocarditis. 5. cxr: 2-view - IMPRESSION: 1. Left pleural effusion and basilar opacity, new from prior. This is unlikely to represent tuberculosis, however, infection cannot be excluded. Consultations: infectious disease - Aminta Putnam, DO orthopedics - Pete Fermin, DO Medication Reconciliation New Medications: Nafcillin Sod (Nafcillin Sodium) 2 Gm Inj 2 GM IV Q4H for 42 Days, 0 Refills Amlodipine Besylate (Amlodipine Besylate) 5 Mg Tab 10 MG PO QAM, #30 TAB 2 Refills Carvedilol (Carvedilol) 6.25 Mg Tab 6.25 MG PO BID, #60 TAB 2 Refills Folic Acid (Folic Acid) 1 Mg Tab 1 MG PO QAM, #30 TAB 1 Refill Hctz/Lisinopril (Lisinopril/Hctz 10/12.5 Mg) 1 Ea Tab 1 TAB PO QAM, #30 TAB 2 Refills Polyethylene (Miralax) 17 Gm Pow 17 GM PO BID, #1 BTL 2 Refills Discontinued Medications: Ibuprofen (Advil) 200 Mg Tab 200-600 MG PO Q4H PRN for Pain, TAB Lisinopril/Hctz (Zestoretic 20MG/12.5MG) Tab 1 TAB PO BID, TAB Metformin Hcl (Glucophage) 500 Mg Tab 500 MG PO BID, TAB Discharge Exam Physical Exam: General Appearance: no apparent distress ENT: pharynx normal Neck: no JVD Respiratory/Chest: lungs clear, no respiratory distress, no accessory muscle use Cardiovascular: regular rate, rhythm, no gallop, normal peripheral pulses, + systolic murmur (1/6 CHAVEZ RUSB) Abdomen / GI: normal bowel sounds, non tender, soft, no organomegaly Extremities: no pedal edema, + pertinent finding (minimal pain with passive flexion of left hip) Neurologic/Psychiatric: alert, oriented x 3, + pertinent finding (strength 5 /5 b/l upper extremities; 5/5 RLE; 4-5/5 LLE) Skin: no rash Hospital Course HISTORY OF PRESENT ILLNESS: The patient is a 71-year-old pleasant female from [place] [facility] who developed lower back pain 2-3 months ago while still living in [place]. Her daughter had gone to [place] her [place] and prompted her to go to the ER there multiple times with no definitive workup done. Also has been having intermittent fever and chills in [place] and her pain started to get progressively worse. At one of her visits in [place] [facility] [place] they did an MRI, but unknown if that was done with contrast or without, but they told her you have something in your lumbar spine and you need to get it checked out. She did not understand if they told her that there is a mass, infection or what. Finally, the patient after that decided to come back to the [facility]. While she was in [facility] she denies any abscess or skin infection, but said that at some point she had a little bit of dark stool. She denies any source of infection that might be causing this, but said that in one of her ER visits they told her that there are red blood cells in the urine. She denies any oral or dental work except one tooth that required some dental filling. There was no abscess in her gum or anything. The patient admits to drinking unpasteurized milk in [place] [facility]; also gave history of her father having brucellosis in the past which is a long time ago, but it gave me an idea that the area might be endemic, that she lives in. The patient came here to the ED and was found to have severe lower back pain. A CT scan was done and showed discitis/osteomyelitis in the lumbar spine. HOSPITAL COURSE: The patient underwent lumbar spine MRI with full details noted above. Her blood cultures from time of admission grew watts-sensitive staph aureus. She was started on nafcillin q4h for such after formal consultation by infectious disease. Repeat blood cultures x 4 sets were negative. Echocardiogram (2D) did not show evidence of endocarditis. Her last documented low-grade fever was on 12/06/16. She was seen in consult by Dr. Pete Fermin, orthopedics, who recommended transfer to a tertiary care center for possible surgical management of the various issues seen on MRI of the lumbar spine. Her course was complicated by significant pain of the lumbar spine leading to ambulatory dysfunction. Fortunately she does not appear to have neurological compromise at this time. Her HTN and T2DM remained stable throughout her course. Vital signs remained stable as well with normal telemetry. Due to being from [place] as well as the initial MRI findings she underwent a quantiferon gold test which returned positive just prior to transfer. Her 2-view chest x-ray showed a small left-sided pleural effusion with infiltrate. No cavitary lesions or granulomas were seen. She had NO pulmonary symptoms her entire stay to suggest pneumonia. Recommend follow-up chest x-ray to ensure resolution of the findings. It would not be unreasonable, if lumbar surgery is needed, to check AFB of the bone; again, however, it appears the culprit pathogen is staph aureus. I would like to thank Dr. Ryan Christina for accepting this pleasant patient in transfer to [facility]. 12/06/16 08:29 Red Blood Count 3.33, Mean Corpuscular Volume 92.5, Mean Corpuscular Hemoglobin 31.2, Mean Corpuscular Hemoglobin Concent 33.8, Mean Platelet Volume 8.6, Neutrophils (%) (Auto) 73.0, Lymphocytes (%) (Auto) 17.4, Monocytes (%) (Auto) 7.9, Eosinophils (%) (Auto) 1.0, Basophils (%) (Auto) 0.5, Neutrophils # (Auto) 6.35, Lymphocytes # (Auto) 1.51, Monocytes # (Auto) 0.69, Eosinophils # (Auto) 0.09, Basophils # (Auto) 0.04 12/07/16 06:23 Red Blood Count 2.90, Mean Corpuscular Volume 90.7, Mean Corpuscular Hemoglobin 30.7, Mean Corpuscular Hemoglobin Concent 33.8, Mean Platelet Volume 8.0, Neutrophils (%) (Auto) 64.5, Lymphocytes (%) (Auto) 24.3, Monocytes (%) (Auto) 8.9, Eosinophils (%) (Auto) 1.4, Basophils (%) (Auto) 0.7, Neutrophils # (Auto) 2.82, Lymphocytes # (Auto) 1.06, Monocytes # (Auto) 0.39, Eosinophils # (Auto) 0.06, Basophils # (Auto) 0.03 12/08/16 06:33 Red Blood Count 3.00, Mean Corpuscular Volume 91.0, Mean Corpuscular Hemoglobin 30.3, Mean Corpuscular Hemoglobin Concent 33.3, Mean Platelet Volume 7.8, Neutrophils (%) (Auto) 59.6, Lymphocytes (%) (Auto) 28.3, Monocytes (%) (Auto) 9.2, Eosinophils (%) (Auto) 1.8, Basophils (%) (Auto) 1.1, Neutrophils # (Auto) 2.65, Lymphocytes # (Auto) 1.26, Monocytes # (Auto) 0.41, Eosinophils # (Auto) 0.08, Basophils # (Auto) 0.05 12/06/16 08:29 12/06/16 09:54 12/07/16 06:23 12/08/16 06:33 Test 12/05/16 11:38 12/05/16 16:28 12/05/16 20:30 12/06/16 07:17 Bedside Glucose 81 mg/dl (70-90) 98 mg/dl (70-90) 166 mg/dl (70-90) 124 mg/dl (70-90) Test 12/06/16 08:29 12/06/16 09:54 12/06/16 11:34 12/06/16 16:34 White Blood Count 8.70 K/uL (4.8-10.8) Red Blood Count 3.33 M/uL (4.2-5.4) Hemoglobin 10.4 g/dL (12.0-16.0) Hematocrit 30.8 % (37-47) Mean Corpuscular Volume 92.5 fL (80-100) Mean Corpuscular Hemoglobin 31.2 pg (25-34) Mean Corpuscular Hemoglobin Concent 33.8 g/dl (32-36) Platelet Count 300 K/uL (130-400) Mean Platelet Volume 8.6 fL (7.4-10.4) Neutrophils (%) (Auto) 73.0 % Lymphocytes (%) (Auto) 17.4 % Monocytes (%) (Auto) 7.9 % Eosinophils (%) (Auto) 1.0 % Basophils (%) (Auto) 0.5 % Neutrophils # (Auto) 6.35 K/uL (1.4-6.5) Lymphocytes # (Auto) 1.51 K/uL (1.2-3.4) Monocytes # (Auto) 0.69 K/uL (0.11-0.59) Eosinophils # (Auto) 0.09 K/uL (0-0.5) Basophils # (Auto) 0.04 K/uL (0-0.2) RDW Standard Deviation 49.6 fL (36.4-46.3) RDW Coefficient of Variation 14.8 % (11.5-14.5) Immature Granulocyte % (Auto) 0.2 % Immature Granulocyte # (Auto) 0.02 K/uL (0.00-0.02) Absolute Reticulocyte Count 0.08 10^6/uL (0.02-0.10) Percent Reticulocyte Count 2.4 % (0.5-2.0) Anion Gap 6.0 mmol/L (3-11) Est Creatinine Clear Calc Drug Dose 39.4 ml/min Estimated GFR () 47.5 Estimated GFR (Non- 41.0 BUN/Creatinine Ratio 16.2 (10-20) Calcium Level 8.4 mg/dl (8.5-10.1) Phosphorus Level 3.2 mg/dl (2.5-4.9) Magnesium Level mg/dl (1.8-2.4) 1.7 mg/dl (1.8-2.4) Total Bilirubin 0.5 mg/dl (0.2-1) Aspartate Amino Transf (AST/SGOT) U/L (15-37) 20 U/L (15-37) Alanine Aminotransferase (ALT/SGPT) 20 U/L (12-78) Alkaline Phosphatase 40 U/L (45-117) Total Protein 7.6 gm/dl (6.4-8.2) Albumin 2.0 gm/dl (3.4-5.0) Globulin 5.6 gm/dl (2.5-4.0) Albumin/Globulin Ratio 0.4 (0.9-2) Iron Level 28 mcg/dl (35-150) Total Iron Binding Capacity 120 mcg/dl (250-450) Ferritin 279.9 ng/ml (8.0-388.0) Bedside Glucose 125 mg/dl (70-90) 157 mg/dl (70-90) Test 12/06/16 20:42 12/07/16 06:23 12/07/16 07:48 12/07/16 11:30 Bedside Glucose 166 mg/dl (70-90) 122 mg/dl (70-90) 148 mg/dl (70-90) White Blood Count 4.37 K/uL (4.8-10.8) Red Blood Count 2.90 M/uL (4.2-5.4) Hemoglobin 8.9 g/dL (12.0-16.0) Hematocrit 26.3 % (37-47) Mean Corpuscular Volume 90.7 fL (80-100) Mean Corpuscular Hemoglobin 30.7 pg (25-34) Mean Corpuscular Hemoglobin Concent 33.8 g/dl (32-36) Platelet Count 231 K/uL (130-400) Mean Platelet Volume 8.0 fL (7.4-10.4) Neutrophils (%) (Auto) 64.5 % Lymphocytes (%) (Auto) 24.3 % Monocytes (%) (Auto) 8.9 % Eosinophils (%) (Auto) 1.4 % Basophils (%) (Auto) 0.7 % Neutrophils # (Auto) 2.82 K/uL (1.4-6.5) Lymphocytes # (Auto) 1.06 K/uL (1.2-3.4) Monocytes # (Auto) 0.39 K/uL (0.11-0.59) Eosinophils # (Auto) 0.06 K/uL (0-0.5) Basophils # (Auto) 0.03 K/uL (0-0.2) RDW Standard Deviation 48.3 fL (36.4-46.3) RDW Coefficient of Variation 14.7 % (11.5-14.5) Immature Granulocyte % (Auto) 0.2 % Immature Granulocyte # (Auto) 0.01 K/uL (0.00-0.02) Red Blood Cell Morphology Unremarkable Anion Gap 5.0 mmol/L (3-11) Est Creatinine Clear Calc Drug Dose 39.4 ml/min Estimated GFR () 47.5 Estimated GFR (Non- 41.0 BUN/Creatinine Ratio 17.0 (10-20) Calcium Level 7.7 mg/dl (8.5-10.1) Magnesium Level 1.8 mg/dl (1.8-2.4) Total Bilirubin 1.1 mg/dl (0.2-1) Aspartate Amino Transf (AST/SGOT) 20 U/L (15-37) Alanine Aminotransferase (ALT/SGPT) 17 U/L (12-78) Alkaline Phosphatase 34 U/L (45-117) Total Protein 6.1 gm/dl (6.4-8.2) Albumin 1.7 gm/dl (3.4-5.0) Globulin 4.4 gm/dl (2.5-4.0) Albumin/Globulin Ratio 0.4 (0.9-2) Test 12/07/16 16:23 12/07/16 20:40 12/08/16 04:00 12/08/16 06:33 Bedside Glucose 131 mg/dl (70-90) 125 mg/dl (70-90) Stool Occult Blood NEGATIVE (NEGATIVE) White Blood Count 4.45 K/uL (4.8-10.8) Red Blood Count 3.00 M/uL (4.2-5.4) Hemoglobin 9.1 g/dL (12.0-16.0) Hematocrit 27.3 % (37-47) Mean Corpuscular Volume 91.0 fL (80-100) Mean Corpuscular Hemoglobin 30.3 pg (25-34) Mean Corpuscular Hemoglobin Concent 33.3 g/dl (32-36) Platelet Count 240 K/uL (130-400) Mean Platelet Volume 7.8 fL (7.4-10.4) Neutrophils (%) (Auto) 59.6 % Lymphocytes (%) (Auto) 28.3 % Monocytes (%) (Auto) 9.2 % Eosinophils (%) (Auto) 1.8 % Basophils (%) (Auto) 1.1 % Neutrophils # (Auto) 2.65 K/uL (1.4-6.5) Lymphocytes # (Auto) 1.26 K/uL (1.2-3.4) Monocytes # (Auto) 0.41 K/uL (0.11-0.59) Eosinophils # (Auto) 0.08 K/uL (0-0.5) Basophils # (Auto) 0.05 K/uL (0-0.2) RDW Standard Deviation 49.4 fL (36.4-46.3) RDW Coefficient of Variation 14.9 % (11.5-14.5) Immature Granulocyte % (Auto) 0.0 % Immature Granulocyte # (Auto) 0.00 K/uL (0.00-0.02) Anion Gap 6.0 mmol/L (3-11) Est Creatinine Clear Calc Drug Dose 39.4 ml/min Estimated GFR () 47.5 Estimated GFR (Non- 41.0 BUN/Creatinine Ratio 14.5 (10-20) Calcium Level 8.0 mg/dl (8.5-10.1) Vitamin B12 Level 918 pg/mL (211-911) Folate 6.23 ng/mL (>5.38) Test 12/08/16 07:49 Bedside Glucose 129 mg/dl (70-90) Date/Time Source Procedure Growth Status 12/06/16 08:48 Blood Blood Culture - Preliminary NO GROWTH TO DATE. Resulted 12/06/16 08:29 Blood Blood Culture - Preliminary NO GROWTH TO DATE. Resulted 12/05/16 10:59 Blood Blood Culture - Preliminary NO GROWTH TO DATE. Resulted 12/05/16 10:50 Blood Blood Culture - Preliminary NO GROWTH TO DATE. Resulted 12/03/16 20:42 Blood Fungal Smear - Final Resulted 12/03/16 20:42 Blood Fungal Culture Pending Resulted 12/03/16 14:30 Blood Blood Culture - Final Staphylococcus Aureus Complete 12/03/16 14:15 Blood Blood Culture - Final Staphylococcus Aureus Complete Total Time Spent: Greater than 30 minutes This includes examination of the patient, discharge planning, medication reconciliation, and communication with other providers. Discharge Instructions Please refer to the electronic Patient Visit Report (Discharge Instructions) for additional information. Follow-Up to be determined after hospitalization at [facility]
[2016-12-08 11:48] VITALS: BP 169/88; PULSE 79; TEMP 36.5; O2SAT 92
[2016-12-08 12:38] VITALS: BP 169/88; PULSE 79; TEMP 36.5; O2SAT 92
--- NOTE | 2016-12-08 12:49 | DIAGNOSTIC IMAGING REPORT ---
CHEST 2 VIEWS ROUTINE CLINICAL HISTORY: 71 years-old Female presenting with positive TB test, eval for any signs of TB. TECHNIQUE: PA and lateral views of the chest were obtained. COMPARISON: 07/31/2015. FINDINGS: Cardiomediastinal silhouette normal. Interval development of blunting of the left costophrenic angle with left basilar opacity and left pleural effusion. Right lung clear. No pneumothorax. Osseous structures and upper abdomen normal.. IMPRESSION: 1. Left pleural effusion and basilar opacity, new from prior. This is unlikely to represent tuberculosis, however, infection cannot be excluded. Electronically signed by: Balaji Holland M.D. 12/08/2016 12:47 PM Dictated Date/Time: 12/08/2016 12:46 PM
[2016-12-08] MEDS: MoRPHine SULFATE 2 MG/ML CARP IV PRN ×2 (12:53→14:31)
--- NOTE | 2016-12-08 13:01 | Medical Student: [facility] ---
Med Student Progress Note Date of Service Dec 08, 2016. Subjective Pt evaluation today including: conversation w/ patient, conversation w/ family , physical exam Pain: Better than yesterday, but still alot of pain with movement Gabriela had a family friend in the room to translate for me, later I visited again and Isidra, the POA, was there to translate for me as well. Today she feels better, but still has a high level of pain with movement. Worsened by sitting up and standing. She has less pain from the IV infiltrating in the right arm today compared to yesterday. We explained the situation to her, regarding being sent to [facility] for surgical evaluation. She is in agreement and "trusts our judgement". She had a bowel movement during the night and still has no GI complaints. She continues to have a decreased appetite. Denies fever, chills, n/v/d, cough, chest pain, shortness of breath. Review of Systems Constitutional: + problem reported (Pain with movement), No fever, No chills, No sweats Respiratory: No cough, No sputum, No shortness of breath, No problem reported Cardiac: No chest pain, No edema, No palpitations Abdomen: + constipation, No pain, No nausea, No vomiting, No diarrhea Musculoskeletal: + problem reported (Pain with flexion of left hip) Objective Vital Signs Date Time Temp Pulse Resp B/P (MAP) Pulse Ox O2 Delivery O2 Flow Rate FiO2 12/08/16 11:48 36.5 79 18 169/88 (115) 92 Room Air 12/08/16 08:01 36.6 75 20 147/74 (98) 94 Room Air 12/08/16 08:00 Room Air 12/08/16 04:00 Room Air 12/08/16 03:53 36.7 68 18 157/80 (105) 91 Room Air 12/08/16 00:00 Room Air 12/07/16 23:44 36.7 73 18 148/77 (100) 93 Room Air 12/07/16 20:21 94 Room Air 12/07/16 19:58 36.9 75 18 182/78 (112) 92 Room Air 12/07/16 16:00 94 Room Air 12/07/16 15:00 36.8 76 16 151/69 (96) 93 12/07/16 12:30 Room Air Physical Exam General Appearance: WD/WN, + mild distress Neck: supple, no JVD, no carotid bruits, trachea midline Respiratory/Chest: chest non-tender, lungs clear, normal breath sounds, no respiratory distress, no accessory muscle use Cardiovascular: regular rate, rhythm, no edema, no gallop, no JVD, no murmur Abdomen: normal bowel sounds, non tender, soft, no pulsatile mass Extremities: non-tender, no pedal edema, no calf tenderness Neurologic/Psychiatric: alert, normal mood/affect, oriented x 3 Skin: normal color, warm/dry Comments: No splinter hemorrhages or other lesions on the hands or in the mouth Laboratory Results Last 24 Hours Test 12/07/16 16:23 12/07/16 20:40 12/08/16 04:00 12/08/16 06:33 Bedside Glucose 131 mg/dl 125 mg/dl Stool Occult Blood NEGATIVE White Blood Count 4.45 K/uL Red Blood Count 3.00 M/uL Hemoglobin 9.1 g/dL Hematocrit 27.3 % Mean Corpuscular Volume 91.0 fL Mean Corpuscular Hemoglobin 30.3 pg Mean Corpuscular Hemoglobin Concent 33.3 g/dl Platelet Count 240 K/uL Mean Platelet Volume 7.8 fL Neutrophils (%) (Auto) 59.6 % Lymphocytes (%) (Auto) 28.3 % Monocytes (%) (Auto) 9.2 % Eosinophils (%) (Auto) 1.8 % Basophils (%) (Auto) 1.1 % Neutrophils # (Auto) 2.65 K/uL Lymphocytes # (Auto) 1.26 K/uL Monocytes # (Auto) 0.41 K/uL Eosinophils # (Auto) 0.08 K/uL Basophils # (Auto) 0.05 K/uL RDW Standard Deviation 49.4 fL RDW Coefficient of Variation 14.9 % Immature Granulocyte % (Auto) 0.0 % Immature Granulocyte # (Auto) 0.00 K/uL Sodium Level 140 mmol/L Potassium Level 3.4 mmol/L Chloride Level 105 mmol/L Carbon Dioxide Level 29 mmol/L Anion Gap 6.0 mmol/L Blood Urea Nitrogen 19 mg/dl Creatinine 1.30 mg/dl Est Creatinine Clear Calc Drug Dose 39.4 ml/min Estimated GFR () 47.5 Estimated GFR (Non- 41.0 BUN/Creatinine Ratio 14.5 Random Glucose 119 mg/dl Calcium Level 8.0 mg/dl Vitamin B12 Level 918 pg/mL Folate 6.23 ng/mL Test 12/08/16 07:49 12/08/16 11:41 Bedside Glucose 129 mg/dl 174 mg/dl Assessment and Plan Assessment and Plan: Gabriela is a 71 yo welsh speaking female who presented with 2 months of back pain and intermittent fevers. Following a lumbar MRI, lower back diskitis with Left psoas muscle abscess was diagnosed. She is being treated with Nafcillin, Miralax, milk of magnesia, carvedilol, hydralazine, lisinopril/ HCTZ, and morphine. Her hospital stay has been complicated by the size of the psoas abscess and the concern for inability to treat with antibiotics alone. For this reason, we are planning to send her to [facility] for surgical consult and possible surgical intervention. Additionally, she had a positive blood test for TB. Diskitis with psoas abscess - Patient continues to be in pain. Level of pain seems to have overall increased since initially seeing her on Monday. - Has had very few febrile events during her stay here - Has had one bowel movement during her stay, may be secondary to pain or opioid medications, or both. - Family members are in agreement with surgical consult and travel to [facility] - 12/06/16 blood culture shows no growth to date - Continue with Nafcillin IV, Morphine PRN for pain, Miralax and Milk of magnesia for constipation - Plan for transfer to [facility] for surgical evaluation - Monitor vitals for HTN and fever - Monitor for signs of endocarditis Hypertension - Continue with current BP regimen - Monitor BP - Continue with pain management, as this may be causing the hypertension Diabetes: - Continue sliding scale insulin - Continue current diet Continued [facility] stay due to: inadequate oral pain control, ambulation difficulties, multiple IV medications needed, other (lumbar abscess/ osteomyelitis requiring IV medication and surgical intervention) Discharge planning: acute transfer
[2016-12-08 23:39] LABS: BRUCELLA AB IGM 0.12; FUNGITELL (1-3)-B-D-GLUCAN* <31 pg/mL; FUNGITELL INTERP NEGATIVE
== END 2016-12-08 13:28 | disposition short-term general hospital (02) | DRG 871 ==
LOC: C.EDB 12:39 → C.MED 18:51 → ENRESERV 19:08 → CANRESERV 19:08 → ENRESERV 19:22
PROVIDERS: ADMIT Internal Medicine; ATTEND Internal Medicine
DX: A41.01 Sepsis due to Methicillin susceptible Staphylococcus aureus (principal); K68.12 Psoas muscle abscess; M46.26 Osteomyelitis of vertebra, lumbar region; N17.9 Acute kidney failure, unspecified; J90 Pleural effusion, not elsewhere classified; M46.46 Discitis, unspecified, lumbar region; E88.09 Other disorders of plasma-protein metabolism, not elsewhere classified; E87.6 Hypokalemia; R00.2 Palpitations; R76.11 Nonspecific reaction to tuberculin skin test without active tuberculosis; R26.2 Difficulty in walking, not elsewhere classified; E11.9 Type 2 diabetes mellitus without complications; I11.9 Hypertensive heart disease without heart failure; K59.00 Constipation, unspecified; Z79.84 Long term (current) use of oral hypoglycemic drugs; Z79.899 Other long term (current) drug therapy

== ENCOUNTER 2016-12-14 10:43 | Emergency (ER) | payer OTHER ==
[~2016-12-14] VITALS: Ht 160 cm; Wt 73.0 kg
[~2016-12-14 10:43] MED LIST changes: -ASPCH81X PO; -CHOL1TAB42 PO; +CRG625 PO; +FLV1 PO; -GLC/500 PO; -GLUCTAB18; -HYDR12.55 PO; +LSN/10125 PO; +MRLP17 PO; +NRV5 PO; +[UNRECOGNIZED DRUG - CODE] IV; -[UNRECOGNIZED DRUG - OTHER] PO
[2016-12-14 10:47] VITALS: TEMP 36.9; Ht 160 cm; Wt 73.0 kg
[2016-12-14] MEDS ORDERED: ACETAMINOPHEN 500 MG TAB PO STA (11:23)
[2016-12-14] MEDS ORDERED: IBUPROFEN 200 MG TAB PO STA (11:23)
[2016-12-14] MEDS ORDERED: TRAMADOL HCL 50 MG TAB PO PRN (11:30)
[2016-12-14] MEDS ORDERED: LCTX PO (11:31)
[2016-12-14] MEDS ORDERED: ASPI81TA28 PO (11:31)
[2016-12-14] MEDS ORDERED: CEFA1INJ IV (11:31)
[2016-12-14 12:06] LABS: BASO % 0.8 %; BASO ABS # 0.04 K/uL (0-0.2); EOS % 1.2 %; IG% 0.2 %; LYMPH % 22.9 %; LYMPH ABS # 1.17 K/uL (1.2-3.4); MEAN CELL VOLUME 91.5 fL (80-100); MEAN CORPUSCULAR HEMOGLOBIN 31.3 pg (25-34); MEAN CORPUSCULAR HGB CONC 34.2 g/dl (32-36); MEAN PLATELET VOLUME 7.7 fL (7.4-10.4); MONO % 10.2 %; NEUT % 64.7 %; PLATELET COUNT 169 K/uL (130-400); RED BLOOD COUNT 2.84 M/uL (4.2-5.4); VEN BLD GAS O2 SATURATION < 60.0 %; VEN BLOOD GAS BASE EXCESS 4.3 mEq/L; VENOUS BLOOD GAS PCO2 45 mmHg (38.0-50.0); VENOUS BLOOD GAS PO2 22 mmHg; WHITE BLOOD COUNT 5.12 K/uL (4.8-10.8)
[2016-12-14 12:25] LABS: ANISOCYTOSIS PRESENT; BUN/CREATININE RATIO 13.9 (10-20); C-REACTIVE PROTEIN 4.7 mg/dl (0-0.29); COMPLETE YES; CREATININE 1.2 mg/dl (0.60-1.20); URIC ACID 3.5 mg/dl (2.6-7.2)
--- NOTE | 2016-12-14 12:27 | EMERGENCY ROOM VISIT NOTE ---
History Report prepared by Rupesh: Jaqueline Mcneill Under the Supervision of: Dr. Johnathon Fonseca M.D. First contact with patient: 11:10 Chief Complaint: HAND PAIN/INJURY Stated Complaint: SWELLING/PAIN IN HAND History of Present Illness The patient is a 71 year old white female with a past medical history of DM, HTN , and discitis who presents to the ED with a cc of right hand pain beginning yesterday. Positive right wrist pain, right wrist and hand swelling. Negative vomiting, right shoulder pain, right elbow pain, left hand pain. The patient does not speak Azeri and the history was obtained with the help of her daughter who is translating at the bedside. The patient was recently diagnosed with discitis at [facility] and transferred to [facility] for further care. Daughter states that they opted not to have surgery and to treat the problem with antibiotics. The patient was discharged home from [facility] yesterday. She is current taking Ancef. Yesterday afternoon the patient started to complain of right hand pain. Last night her pain worsened and she noticed the swelling. The patient is right hand dominant. It is not painful to the touch. Movement of the wrist and fingers exacerbate her pain. She rates her pain as a 5/10 in severity. The patient has not been eating and drinking as much as usual. She has had some diarrhea, which her doctor told them was due to the antibiotics. She is still experiencing some back pain. Source of History: patient, family (daughter) Onset: yesterday Position: hand (right) Symptom Intensity: 5/10 Timing: worsening Modifying Factors (Worsening): movement Associated Symptoms: + back pain, + diarrhea, No vomiting Note: Positive right wrist pain, right wrist and hand swelling. Negative right shoulder pain, right elbow pain, left hand pain Review of Systems See HPI for pertinent positives and negatives. A total of ten systems were reviewed and were otherwise negative. Past Medical & Surgical Medical Problems: (1) Diabetes (2) Discitis of lumbar region (3) Diskitis (4) HTN (hypertension) (5) MSSA (methicillin susceptible Staphylococcus aureus) septicemia (6) No known allergies (7) Psoas abscess Family History Diabetes mellitus Hypertension Social History Smoking Status: Never Smoker Alcohol Use: none Drug Use: none Marital Status: Housing Status: lives with significant other Occupation Status: retired Current/Historical Medications Scheduled Amlodipine Besylate (Norvasc), 10 MG PO QD Aspirin (Aspirin Ec), 81 MG PO HS Carvedilol (Coreg), 1 TAB PO BID Cefazolin in D5w (Cefazolin/Dextrose 2 gm/100Ml), 2 GM IV Q8 Hydrochlorothiazide (Hctz), 1 CAP PO DAILY Lactobacillus Acidophilus (Lactinex), 1 TAB PO BID Allergies Coded Allergies: No Known Allergies (Unverified , 12/14/16) Physical Exam Vital Signs Date Time Temp Pulse Resp B/P (MAP) Pulse Ox O2 Delivery O2 Flow Rate FiO2 12/14/16 15:45 76 16 185/94 96 12/14/16 14:45 73 16 181/98 95 Room Air 12/14/16 12:47 80 16 181/98 96 Room Air 12/14/16 10:47 36.9 85 18 186/97 95 Room Air Physical Exam GENERAL: Awake, alert, well-appearing, NAD HENT: Normocephalic, atraumatic. EYES: Normal conjunctiva. Sclera non-icteric. NECK: Supple. No nuchal rigidity. FROM. RESPIRATORY: CTAB, no rhonchi, wheezing, crackles CARDIAC: RRR, no MRG ABDOMEN: Soft, NTND, BS+ MSK: No chest wall TTP, no LE edema. Pt has some back pain. Pt has tenderness with flexion/extension at the right wrist but no tenderness to palpation. MUR intact to sensory, 4/5 strength secondary to pain, mild warmth and swelling. Capillary refill <2. NEURO: GCS 15, CN 2-12 intact, moves all 4s on command. SKIN: No rash or jaundice noted. Medical Decision & Procedures ER Provider Diagnostic Interpretation: Radiology results as stated below per my review and radiologist interpretation: RIGHT WRIST MIN 3 VIEWS ROUTINE CLINICAL HISTORY: PICC line, RUE swelling Right pain. Edema. COMPARISON: None. DISCUSSION: Moderate generalized degenerative change throughout the hand and wrist. Components of calcification of the triangular fibrocartilage. Moderate soft tissue edema. No acute bony abnormality. Slight cortical lobulation of the distal radial shaft felt to be nonacute. IMPRESSION: Generalized degenerative change. Soft tissue edema. No acute bony abnormality. The above report was generated using voice recognition software. It may contain grammatical, syntax or spelling errors. Electronically signed by: Kevin Johnson M.D. 12/14/2016 12:52 PM Dictated Date/Time: 12/14/2016 12:51 PM RIGHT VENOUS DOPPLER UPR EXT UNIL HISTORY: Pain. Edema. PICC line, RUE swelling Right COMPARISON STUDY: None. FINDINGS: The internal jugular vein is patent. There is normal flow within the subclavian vein. There is normal flow and compressibility within the left axillary, basilic, brachial, radial, ulnar, and visualized cephalic veins. PICC line is confirmed within the subclavian axillary and basilic veins. There is no associated thrombus formation. IMPRESSION: No DVT within the upper extremity. The above report was generated using voice recognition software. It may contain grammatical, syntax or spelling errors. Electronically signed by: Kevin Johnson M.D. 12/14/2016 12:27 PM Dictated Date/Time: 12/14/2016 12:27 PM Laboratory Results 12/14/16 11:45 Red Blood Count 2.84, Mean Corpuscular Volume 91.5, Mean Corpuscular Hemoglobin 31.3, Mean Corpuscular Hemoglobin Concent 34.2, Mean Platelet Volume 7.7, Neutrophils (%) (Auto) 64.7, Lymphocytes (%) (Auto) 22.9, Monocytes (%) (Auto) 10.2, Eosinophils (%) (Auto) 1.2, Basophils (%) (Auto) 0.8, Neutrophils # (Auto ) 3.32, Lymphocytes # (Auto) 1.17, Monocytes # (Auto) 0.52, Eosinophils # (Auto ) 0.06, Basophils # (Auto) 0.04 12/14/16 11:45 Test 12/14/16 11:45 12/14/16 12:00 White Blood Count 5.12 K/uL (4.8-10.8) Red Blood Count 2.84 M/uL (4.2-5.4) Hemoglobin 8.9 g/dL (12.0-16.0) Hematocrit 26.0 % (37-47) Mean Corpuscular Volume 91.5 fL (80-100) Mean Corpuscular Hemoglobin 31.3 pg (25-34) Mean Corpuscular Hemoglobin Concent 34.2 g/dl (32-36) Platelet Count 169 K/uL (130-400) Mean Platelet Volume 7.7 fL (7.4-10.4) Neutrophils (%) (Auto) 64.7 % Lymphocytes (%) (Auto) 22.9 % Monocytes (%) (Auto) 10.2 % Eosinophils (%) (Auto) 1.2 % Basophils (%) (Auto) 0.8 % Neutrophils # (Auto) 3.32 K/uL (1.4-6.5) Lymphocytes # (Auto) 1.17 K/uL (1.2-3.4) Monocytes # (Auto) 0.52 K/uL (0.11-0.59) Eosinophils # (Auto) 0.06 K/uL (0-0.5) Basophils # (Auto) 0.04 K/uL (0-0.2) RDW Standard Deviation 53.9 fL (36.4-46.3) RDW Coefficient of Variation 16.0 % (11.5-14.5) Immature Granulocyte % (Auto) 0.2 % Immature Granulocyte # (Auto) 0.01 K/uL (0.00-0.02) Anisocytosis PRESENT Erythrocyte Sedimentation Rate 61 mm/hr (0-21) Venous Blood pH 7.43 (7.36-7.41) Venous Blood Partial Pressure CO2 45 mmHg (38.0-50.0) Venous Blood Partial Pressure O2 22 mmHg Venous Blood HCO3 29 mmol/L Venous Blood Oxygen Saturation < 60.0 % Venous Blood Base Excess 4.3 mEq/L Anion Gap 4.0 mmol/L (3-11) Est Creatinine Clear Calc Drug Dose 40.6 ml/min Estimated GFR () 52.3 Estimated GFR (Non- 45.1 BUN/Creatinine Ratio 13.9 (10-20) Uric Acid 3.5 mg/dl (2.6-7.2) Calcium Level 8.0 mg/dl (8.5-10.1) C-Reactive Protein 4.70 mg/dl (0-0.29) Bedside Lactic Acid Venous 0.83 mmol/L (0.90-1.70) Laboratory results reviewed by me. Medications Administered Medications (Trade) Dose Ordered Sig/Oseas Route Start Time Stop Time Status Last Admin Dose Admin Ibuprofen (Advil Tab) 400 mg NOW STAT PO 12/14/16 11:23 12/14/16 11:28 DC 12/14/16 11:42 400 MG Acetaminophen (Tylenol Tab) 1,000 mg NOW STAT PO 12/14/16 11:23 12/14/16 11:28 DC 12/14/16 11:41 1,000 MG Tramadol HCl (Ultram Tab) 25 mg Q4H PRN PO 12/14/16 11:30 12/14/16 16:55 DC 12/14/16 11:43 25 MG Cefazolin Sodium 2000 mg/Dextrose 60 ml @ 120 mls/hr NOW ONCE IV 12/14/16 14:30 12/14/16 14:59 DC 12/14/16 14:46 120 MLS/HR ED Course 1110: The patient was evaluated in room C3. A complete history and physical exam was performed. 1123: Tylenol tab 1000 mg PO, Advil 400 mg PO 1130: Ultram 25 mg PO - PRN, Cefazolin Sodium 2000 mg/Dextrose 60 ml @ 120 mls/ hr IV 1342: I updated the patient and her family. 1449: I reassessed the patient at this time. She is feeling better and resting comfortably. I discussed the results and treatment plan with the patient and her family. I answered all pertaining questions that they had. They expressed understanding and verbalized agreement. The patient will be discharged home. Medical Decision Differential diagnoses includes DVT, gouty flare, cellulitis, tendonitis, shingles, De Quervain tenosynovitis. The patient is a 71 year old white female with a past medical history of DM, HTN , and discitis who presents to the ED with a cc of right hand pain beginning yesterday. Her CPR and ESR are downtrending. Patient have elevated white count today had a normal lactate and her ESR and CRP inflammatory markers were downtrending albeit elevated and likely related to her prior discitis. Patient's DVT ultrasound was negative for DVT. She had a negative wrist film. Patient was likely suffering from some sort of tenosynovitis and was given additional recommendations for treatment and care which included elevating the leg above the heart placed in an Aj wrap, apply ice, and using Motrin and Tylenol. Patient was given strict follow-up and discharge, return precautions. Patient was told to return if she had worsening swelling pain or redness. Patient agreed with plan of care. I explained these instructions to a friend who takes care of the patient. They also agreed with the plan of care. Patient was discharged home. Medication Reconcilliation Current Medication List: was personally reviewed by me Blood Pressure Screening Patient's blood pressure: Elevated blood pressure Blood pressure disposition: Referred to PCP Impression Primary Impression: De Fabián's tenosynovitis, right Scribe Attestation The scribe's documentation has been prepared under my direction and personally reviewed by me in its entirety. I confirm that the note above accurately reflects all work, treatment, procedures, and medical decision making performed by me. Departure Information Dispostion Home / Self-Care Prescriptions Hydrochlorothiazide (HCTZ) 12.5 Mg Cap 1 CAP PO DAILY for 30 Days, #30 CAP 5 Refills Prov: Johnathon Fonseca M.D. 12/14/16 Carvedilol (COREG) 6.25 Mg Tab 1 TAB PO BID for 30 Days, #60 TAB 5 Refills Prov: Johnathon Fonseca M.D. 12/14/16 Amlodipine Besylate (NORVASC) 5 Mg Tab 10 MG PO QD for HTN for 30 Days, #60 TAB Prov: Johnathon Fonseca M.D. 12/14/16 Referrals José Larry III, CRNP (PCP) Forms HOME CARE DOCUMENTATION FORM, IMPORTANT VISIT INFORMATION Patient Instructions Eddy Tenosynovitis, De Dharain Tenosynovitis Tx, My [facility] Additional Instructions Please return to the emergency department if you have worsening or recurrent symptoms not amenable to at-home treatment. Please call for a follow-up appointment with her primary care physician. Please take your medications as prescribed. If you have other concerns and/or complaints please feel free to also call your primary care physician's office or return the ED for further evaluation, management, and treatment.
--- NOTE | 2016-12-14 12:53 | DIAGNOSTIC IMAGING REPORT ---
RIGHT WRIST MIN 3 VIEWS ROUTINE CLINICAL HISTORY: PICC line, RUE swelling Right pain. Edema. COMPARISON: None. DISCUSSION: Moderate generalized degenerative change throughout the hand and wrist. Components of calcification of the triangular fibrocartilage. Moderate soft tissue edema. No acute bony abnormality. Slight cortical lobulation of the distal radial shaft felt to be nonacute. IMPRESSION: Generalized degenerative change. Soft tissue edema. No acute bony abnormality. The above report was generated using voice recognition software. It may contain grammatical, syntax or spelling errors. Electronically signed by: Kevin Johnson M.D. 12/14/2016 12:52 PM Dictated Date/Time: 12/14/2016 12:51 PM
[2016-12-14] MEDS ORDERED: CEFAZOLIN SOD 1000MG/55 ML D5W IV STA (13:51)
[2016-12-14] MEDS ORDERED: CARV6.252 PO (14:11)
[2016-12-14] MEDS ORDERED: HYDR12.56 PO (14:11)
[2016-12-14] MEDS ORDERED: AMLO5TAB2 PO (14:11)
[2016-12-14] MEDS ORDERED: CEFAZOLIN SOD 2000 MG in DEXTROSE 5% 50ML IV ONE (14:30)
[2016-12-14 15:45] VITALS: BP 185/94; PULSE 76; O2SAT 96
== END 2016-12-14 15:45 | disposition home or self-care (01) ==
LOC: C.EDB 10:44 → C.EDC 15:45
DX: M65.4 Radial styloid tenosynovitis [de Quervain] (principal); E11.9 Type 2 diabetes mellitus without complications; I10 Essential (primary) hypertension; M46.46 Discitis, unspecified, lumbar region; R19.7 Diarrhea, unspecified; Z79.82 Long term (current) use of aspirin; Z83.3 Family history of diabetes mellitus; Z82.49 Family history of ischemic heart disease and other diseases of the circulatory system

== ENCOUNTER → 2016-12-28 | Outpatient (CLI) | payer OTHER ==
[~2016-12-28] MED LIST changes: +AMLO5TAB2 PO; +ASPI81TA28 PO; +CARV6.252 PO; +CEFA1INJ IV; -CRG625 PO; -FLV1 PO; +HYDR12.56 PO; +LCTX PO; -LSN/10125 PO; -MRLP17 PO; -NRV5 PO; -[UNRECOGNIZED DRUG - CODE] IV
== END | disposition home or self-care (01) ==
LOC: C.LABSPEC 14:46
PROVIDERS: ATTEND Family Medicine
DX: D64.9 Anemia, unspecified (principal)

== ENCOUNTER → 2017-01-02 | Outpatient (CLI) | payer OTHER ==
--- NOTE | 2017-01-20 07:30 | CODING QUERY NO DIAGNOSIS ---
TREATMENT RENDERED WITHOUT A DIAGNOSIS To promote full compliance with coding requirements relating to patient care, physician participation is requested in all cases of wardrobe technician uncertainty. Please assist us with providing a diagnosis/symptom for the test(s) below: A diagnosis/symptom was not documented on your Order. A valid diagnosis/symptom is required to bill all insurances. Please remember that we are unable to code a diagnosis of rule out, probable, possible, questionable, or suspected. DATE OF SERVICE: 01/02/17 Tests that require a diagnosis: * FECAL GLOBIN (INSURE) DIAGNOSIS: Provider Signature: Date: Thank you Deirdre Tidwell [facility] Information Management Once completed, please kindly fax back to [phone] For questions please call [phone]
== END | disposition home or self-care (01) ==
LOC: C.LAB 13:18
PROVIDERS: ATTEND Nurse Practitioner Family
DX: D64.9 Anemia, unspecified (principal); R53.83 Other fatigue

== ENCOUNTER → 2017-04-26 | Outpatient (CLI) | payer OTHER ==
[~2017-04-26] MED LIST changes: -AMLO5TAB2 PO
[2017-04-26 10:01] LABS: BASO % 0.8 %; BASO ABS # 0.03 K/uL (0-0.2); COMPLETE YES; EOS % 1.8 %; HEMATOCRIT 36.8 % (37-47); IG% 0.3 %; LYMPH % 39.1 %; LYMPH ABS # 1.51 K/uL (1.2-3.4); MEAN CELL VOLUME 91.1 fL (80-100); MEAN CORPUSCULAR HEMOGLOBIN 30.9 pg (25-34); MEAN PLATELET VOLUME 8.9 fL (7.4-10.4); MONO % 8.3 %; NEUT % 49.7 %; PLATELET COUNT 153 K/uL (130-400); RED BLOOD COUNT 4.04 M/uL (4.2-5.4); WHITE BLOOD COUNT 3.86 K/uL (4.8-10.8)
[2017-04-26 10:20] LABS: ALT/SGPT 24 U/L (12-78); BLOOD UREA NITROGEN 23 mg/dl (7-18); BUN/CREATININE RATIO 24.6 (10-20); CALCIUM 8.7 mg/dl (8.5-10.1); CARBON DIOXIDE 30 mmol/L (21-32); CHLORIDE 107 mmol/L (98-107); CHOLESTEROL 192 mg/dl (0-200); CREATININE 0.92 mg/dl (0.60-1.20); ESTIMATED AVERAGE GLUCOSE 128 mg/dl; GLUCOSE 106 mg/dl (70-99); HA1C FLAG Normal (Normal); POTASSIUM 3.9 mmol/L (3.5-5.1); SODIUM 141 mmol/L (136-145)
[2017-04-26 10:25] LABS: ALB/GLOB RATIO 0.7 (0.9-2); ALKALINE PHOSPHATASE 68 U/L (45-117); AST/SGOT 30 U/L (15-37); CHOLESTEROL/HDL RATIO 2.7; FERRITIN 188.4 ng/ml (8.0-388.0); HDL CHOLESTEROL 71 mg/dl; LDL CHOLESTEROL CALCULATED 105 mg/dl; TRIGLYCERIDES 79 mg/dl (0-150); VERY LOW DENSITY LIPOPROT CALC 16 mg/dl
== END | disposition home or self-care (01) ==
LOC: C.LAB 09:23
PROVIDERS: ATTEND Nurse Practitioner Family
DX: R53.83 Other fatigue (principal); M46.40 Discitis, unspecified, site unspecified; N17.9 Acute kidney failure, unspecified; K68.12 Psoas muscle abscess; E11.29 Type 2 diabetes mellitus with other diabetic kidney complication; E78.00 Pure hypercholesterolemia, unspecified; I10 Essential (primary) hypertension

== ENCOUNTER → 2017-12-19 | Outpatient (CLI) | payer OTHER ==
[2017-12-19 10:08] LABS: BASO % 1.2 %; BASO ABS # 0.05 K/uL (0-0.2); EOS % 2.9 %; EOS ABS # 0.12 K/uL (0-0.5); HEMATOCRIT 41.7 % (37-47); HEMOGLOBIN 14.2 g/dL (12.0-16.0); IG# 0.02 K/uL (0.00-0.02); LYMPH ABS # 1.51 K/uL (1.2-3.4); MEAN CELL VOLUME 91.4 fL (80-100); MEAN CORPUSCULAR HEMOGLOBIN 31.1 pg (25-34); MEAN CORPUSCULAR HGB CONC 34.1 g/dl (32-36); MEAN PLATELET VOLUME 10.2 fL (7.4-10.4); MONO % 8.8 %; MONO ABS # 0.37 K/uL (0.11-0.59); NEUT % 50.6 %; NEUT ABS # 2.13 K/uL (1.4-6.5); PLATELET COUNT 142 K/uL (130-400); RED CELL DISTRIBUTION WIDTH CV 13.8 % (11.5-14.5); RED CELL DISTRIBUTION WIDTH SD 45.8 fL (36.4-46.3)
[2017-12-19 10:41] LABS: ALBUMIN 3.3 gm/dl (3.4-5.0); ALKALINE PHOSPHATASE 85 U/L (45-117); ALT/SGPT 40 U/L (12-78); AST/SGOT 33 U/L (15-37); BLOOD UREA NITROGEN 21 mg/dl (7-18); CALCIUM 8.6 mg/dl (8.5-10.1); CARBON DIOXIDE 28 mmol/L (21-32); CHOLESTEROL 190 mg/dl (0-200); CREATININE 0.94 mg/dl (0.60-1.20); GLUCOSE 147 mg/dl (70-99); LDL CHOLESTEROL CALCULATED 102 mg/dl; SODIUM 140 mmol/L (136-145); TOTAL PROTEIN 7.5 gm/dl (6.4-8.2)
[2017-12-19 10:42] LABS: HEMOGLOBIN A1C 7.1 % (4.5-5.6)
[2017-12-19 13:02] LABS: CREATININE RANDOM URINE 92.1 mg/dl
== END | disposition home or self-care (01) ==
LOC: C.LAB 09:12
PROVIDERS: ATTEND Nurse Practitioner Family
DX: Z00.00 Encounter for general adult medical examination without abnormal findings (principal); E11.9 Type 2 diabetes mellitus without complications; E78.00 Pure hypercholesterolemia, unspecified; I10 Essential (primary) hypertension; N17.9 Acute kidney failure, unspecified; D64.9 Anemia, unspecified

== ENCOUNTER 2021-08-05 01:29 | Inpatient (IN) ==
--- NOTE | 2021-08-05 01:48 | Emergency Department Note ---
History of Present Illness General Chief complaint: Tachycardia Stated complaint: TACHYCARDIA Time Seen by Provider: 08/05/21 01:31 History of Present Illness This 75-year-old Barbadian-speaking female presents to the ER complaining of racing heart Location: chest Quality: racing Severity: moderate Duration: tonight Timing: tonight Context: Patient was concerned and came in Modifying factors: better with Cardizem; worse with nothing Patient states that several years ago she had an episode of atrial fibrillation but is not currently on medication for this. Patient also complains of chest discomfort. Patient denies alcohol or caffeine use. Patient denies dyspnea, abdominal pain, flulike illness Home Medications Medication Instructions Recorded Confirmed Type blood-glucose meter (OneTouch #1 ea 02/25/21 06/28/21 Rx Verio Flex Start) famotidine 40 mg tablet (Pepcid) 40 mg PO BID #28 tab 02/25/21 08/05/21 Rx valacyclovir 1 gram tablet See Rx Instructions .ROUTE 02/25/21 08/05/21 Rx .COMPLEX #4 tab amlodipine 5 mg tablet 7.5 mg PO HS 90 Days #135 tab 06/28/21 08/05/21 Rx blood sugar diagnostic (OneTouch #100 ea 06/28/21 06/28/21 Rx Verio test strips) lancets 33 gauge (OneTouch Delica #100 ea 06/28/21 06/28/21 Rx Lancets) meloxicam 15 mg tablet 7.5 mg PO BID PRN #30 tab 06/28/21 08/05/21 Rx metformin 500 mg tablet 500 mg PO BID #180 tab 06/28/21 08/05/21 Rx omeprazole 40 mg capsule,delayed 40 mg PO DAILY #90 cap 06/28/21 08/05/21 Rx release Allergies Allergy/AdvReac Type Severity Reaction Status Date / Time No Known Allergies Allergy Verified 08/05/21 01:54 Past Med/Surg History Medical History Diabetes Diabetic peripheral angiopathy Discitis of lumbar region Diskitis GERD (gastroesophageal reflux disease) Hiatal hernia HLD (hyperlipidemia) HTN (hypertension) MSSA (methicillin susceptible Staphylococcus aureus) septicemia Obesity Psoas abscess Surgical History History of esophagogastroduodenoscopy (EGD) Family History Denies family history of Colon cancer Ovarian cancer Prostate cancer Myocardial infarction Breast cancer Social History Smoking Status: Never smoker Second Hand Exposure: No; Hx Alcohol Use: Yes Alcohol type: wine Hx Substance Use: No Preferred Language: Barbadian Communication Ability: Effective Communication Tools: Language Line Desktop Administrator Visual Impairment: No Limitations Hearing Ability: Normal Desktop Administrator Required: Yes Beliefs That Will Affect Care: None marital status: Single Current Living Situation: Alone current occupational status: retired Feels Safe at Home: Yes Childhood Exposure to Second-Hand Smoke: No Diet Comment: low sugar Dental Care, Regularly: Yes Physical Activity Frequency: 3-4 Times per Week Seatbelt Use: always Sunscreen Use: Yes Review of Systems A total of 10 systems reviewed and were otherwise negative Physical Exam Vital Signs Vital Signs - 24 hr 08/05/21 01:46 Temperature 37.1 C Temperature Source Oral Pulse Rate 83 Pulse Rate [Apical] 83 Pulse Rhythm Regular Pulse Rhythm [Apical] Irregular Pulse Strength [Apical] Normal Respiratory Rate 18 Respiratory Effort / Characteristics Non-Labored Spontaneous Respiratory Depth Normal Respiratory Pattern Regular Blood Pressure [Right Arm] 114/74 Blood Pressure Mean [Right Arm] 87 Blood Pressure Position [Right Arm] Lying Pulse Oximetry 96 Oxygen Delivery Method Room Air VITALS: Vitals are noted on the nurse's note and reviewed by myself. Vital signs stable. GENERAL: Pleasant Barbadian-speaking female and obtained the history utilizing the language line, in no acute distress, nondiaphoretic, well-developed well- nourished. SKIN: The skin was without rashes, erythema, edema, or bruising. There is no tenting of the skin. Capillary reflex less than 2 seconds. HEAD: Normocephalic atraumatic. EARS: External auditory canals clear EYES: Pupils equal round and reactive to light and accommodation. Conjunctivae without injection, sclerae without icterus. Extraocular movements intact. NOSE: Patent, turbinates without inflammation or discharge. MOUTH: Mucous membranes moist. Pharynx without erythema or exudate. Uvula midline. Airway patent. Tongue does not deviate. NECK: Supple without nuchal rigidity. No lymphadenopathy. No thyromegaly. Cervical spine is nontender. No JVD. HEART: Irregularly irregular rate and rhythm LUNGS: Clear to auscultation bilaterally without wheezes, rales or rhonchi. No retractions or accessory muscle use. ABDOMEN: Positive bowel sounds x 4. Normal tympanic percussion. Soft, nontender, without masses or organomegaly. Knight sign negative. No guarding or rebound tenderness. No CVA tenderness MUSCULOSKELETAL: No muscle atrophy, erythema, or edema noted. NEURO: Patient was alert and oriented to person place and time. Normal sensation to light and sharp touch. No focal neurological deficits. Medical Decision Making Medical Records Attestation: I reviewed the patient's medical records. Home Medications Current Medication List: was personally reviewed by me Laboratory Data Attestation: I reviewed the patient's lab results. Result diagrams: 08/05/21 01:50 08/05/21 01:50 Lab Results 08/05/21 08/05/21 08/05/21 Range/Units 01:50 01:50 01:50 WBC 3.90 L (4.8-10.8) K/uL RBC 4.82 (4.2-5.4) M/uL Hgb 15.6 (12.0-16.0) g/dL Hct 45.6 (37-47) % MCV 94.6 (80-100) fL MCH 32.4 (25-34) pg MCHC 34.2 (32-36) g/dL RDW Std Deviation 50.7 H (36.4-46.3) fL RDW Coeff of Vasqeuz 14.5 (11.5-14.5) % Plt Count 219 (130-400) K/uL MPV 9.7 (7.4-10.4) fL Immature Gran % (Auto) 0.3 % Neut % (Auto) 40.8 % Lymph % (Auto) 48.7 % Colbert % (Auto) 8.2 % Eos % (Auto) 1.0 % Baso % (Auto) 1.0 % Neut # (Auto) 1.59 (1.4-6.5) K/uL Lymph # (Auto) 1.90 (1.2-3.4) K/uL Colbert # (Auto) 0.32 (0.11-0.59) K/uL Eos # (Auto) 0.04 (0-0.5) K/uL Baso # (Auto) 0.04 (0-0.2) K/uL Immature Gran # (Auto) 0.01 (0.00-0.02) K/uL PT 11.0 (9.0-12.0) Seconds INR 1.0 (0.9-1.1) APTT 24.2 (21.0-31.0) Seconds PTT Ratio 0.9 Sodium 141 (136-145) mmol/L Potassium 3.5 (3.5-5.1) mmol/L Chloride 108 H (98-107) mmol/L Carbon Dioxide 23 (21-32) mmol/L Anion Gap 10 (3-11) BUN 15 (6-23) mg/dl Creatinine 0.86 (0.6-1.2) mg/dl Est Cr Clr Drug Dosing Not Reportable Est GFR ( Amer) 76.1 ml/min Est GFR (Non-Af Amer) 65.6 ml/min BUN/Creatinine Ratio 17.4 (10-20) Glucose 111 H (70-99(Fasting)) mg/dl Calcium 8.7 (8.5-10.1) mg/dl Magnesium 1.8 (1.7-2.4) mg/dl Total Bilirubin 0.6 (0.2-1.0) mg/dl AST 41 H (13-39) U/L ALT 39 (7-52) U/L Alkaline Phosphatase 61 (34-104) U/L Troponin I < 0.03 (0-0.04) ng/ml Total Protein 7.2 (6.0-8.3) gm/dl Albumin 3.8 (3.4-5.0) gm/dl Globulin 3.4 (2.5-4.0) gm/dl Albumin/Globulin Ratio 1.1 (0.9-2) Lipase 49 (11-82) U/L TSH (0.300-4.500) uIu/ml 08/05/21 Range/Units 01:50 WBC (4.8-10.8) K/uL RBC (4.2-5.4) M/uL Hgb (12.0-16.0) g/dL Hct (37-47) % MCV (80-100) fL MCH (25-34) pg MCHC (32-36) g/dL RDW Std Deviation (36.4-46.3) fL RDW Coeff of Vasquez (11.5-14.5) % Plt Count (130-400) K/uL MPV (7.4-10.4) fL Immature Gran % (Auto) % Neut % (Auto) % Lymph % (Auto) % Colbert % (Auto) % Eos % (Auto) % Baso % (Auto) % Neut # (Auto) (1.4-6.5) K/uL Lymph # (Auto) (1.2-3.4) K/uL Colbert # (Auto) (0.11-0.59) K/uL Eos # (Auto) (0-0.5) K/uL Baso # (Auto) (0-0.2) K/uL Immature Gran # (Auto) (0.00-0.02) K/uL PT (9.0-12.0) Seconds INR (0.9-1.1) APTT (21.0-31.0) Seconds PTT Ratio Sodium (136-145) mmol/L Potassium (3.5-5.1) mmol/L Chloride (98-107) mmol/L Carbon Dioxide (21-32) mmol/L Anion Gap (3-11) BUN (6-23) mg/dl Creatinine (0.6-1.2) mg/dl Est Cr Clr Drug Dosing Est GFR ( Amer) ml/min Est GFR (Non-Af Amer) ml/min BUN/Creatinine Ratio (10-20) Glucose (70-99(Fasting)) mg/dl Calcium (8.5-10.1) mg/dl Magnesium (1.7-2.4) mg/dl Total Bilirubin (0.2-1.0) mg/dl AST (13-39) U/L ALT (7-52) U/L Alkaline Phosphatase (34-104) U/L Troponin I (0-0.04) ng/ml Total Protein (6.0-8.3) gm/dl Albumin (3.4-5.0) gm/dl Globulin (2.5-4.0) gm/dl Albumin/Globulin Ratio (0.9-2) Lipase (11-82) U/L TSH 2.490 (0.300-4.500) uIu/ml Imaging Data Attestation: I personally reviewed and interpreted this imaging study as follows: MDM Narrative Prior records/ancillary studies reviewed. Triage Nursing notes reviewed. Additional history obtained from EMS The patient's history was concerning for chest pain and tachycardia . Differential diagnosis: Etiologies such as cardiac ischemia, A. fib, dysrhythmia, aortic dissection, pulmonary embolism, pneumonia, pneumothorax, musculoskeletal, infections, pericarditis, myocarditis, esophageal rupture, gastrointestinal, as well as others were entertained. Physical examination: As above. ER treatment provided: An order was placed for continuous cardiac monitoring. The monitor shows a rate of 60-1 50 with a A. fib rhythm. Patient was observed. Patient received Cardizem by EMS On reassessment the patient felt better. Diagnostic interpretation by me: The electrocardiogram was ordered for chest pain EKG: Irregularly irregular with no acute ST-T wave changes. Impression A. fib interpreted by myself. EKG shows no interval abnormalities such as QT prolongation or WPW. There are no findings to suggest Brugada syndrome. Hypertrophic cardiomyopathy was considered but there are no clear historical elements pointing toward this. EKG is not suggestive. The QRS voltage is not extremely large and there are no suggestive Q waves. The labs revealed negative troponin, normal magnesium Euthyroid Imaging studies: Chest x-ray with no acute consolidation, pneumothorax or free air per my interpretation HEART SCORE: Hx: high/mod/low suspicion: 0 ECG: ST depression/nonspecific changes/normal: 0 Age: Greater than 65/45-64/less than 45: 2 Risk factors: (Hypertension, hyperlipidemia, diabetes, coronary disease, tobacco use, cocaine use): 2 Troponin: Greater than 2 times normal limits/1-2 times normal limits/normal: 0 Total: 4 Consultation: A consultation was placed with the hospitalist. The case was discussed and diagnostics were reviewed. The patient was evaluated in the ER for further treatment. Exam and history seem consistent with new onset A. fib. Medicine is consulted. She will be evaluated for admission. By the evaluation outlined above emergent etiologies such as aortic disse ction, pulmonary embolism, pneumonia, pneumothorax, infections, pericarditis, myocarditis, gastrointestinal, as well as others were deemed relatively unlikely. The pt informed about the findings as listed above. All questions were answered and pleased with the treatment. The chart was completed utilizing [employer] Speech voice recognition software. Grammatical errors, random word insertions, pronoun errors, and incomplete sentences are an occassional consequence of this system due to software limitations, ambient noise, and hardware issues. Any formal questions or concerns about the content, text, or information contained within the body of this dictation should be directly addressed to the physician clinical data assistant for clarification. Impression & Plan Atrial fibrillation with RVR, Chest pain Discharge Plan Visit Data Chief Complaint: Tachycardia Stated Complaint: TACHYCARDIA ED Provider: Gnina Wright ED Midlevel Provider: Antonieta Rapp Discharge Problem: Atrial fibrillation with RVR, Chest pain Patient Disposition: Admitted As Inpatient Condition: Good Forms Stand Alone Forms: [employer] Prescriptions Prescriptions: No Action (DME) blood-glucose meter [OneTouch Verio Flex Start] Kit See Rx Instructions .ROUTE .MEDSUPPLY Qty: 1 RF: 0 famotidine [Pepcid] 40 mg tablet 40 mg PO BID Qty: 28 RF: 0 valacyclovir 1 gram tablet See Rx Instructions .ROUTE .COMPLEX Qty: 4 RF: 0 amlodipine 5 mg tablet 7.5 mg PO HS 90 Days Qty: 135 RF: 3 omeprazole 40 mg capsule,delayed release(DR/EC) 40 mg PO DAILY Qty: 90 RF: 3 (DME) OneTouch Verio test strips Strip See Rx Instructions .ROUTE .MEDSUPPLY Qty: 100 RF: 3 (DME) lancets [OneTouch Delica Lancets] 33 gauge misc See Rx Instructions .ROUTE .MEDSUPPLY Qty: 100 RF: 3 metformin 500 mg tablet 500 mg PO BID Qty: 180 RF: 3 meloxicam 15 mg tablet 7.5 mg PO BID PRN (Reason: pain) Qty: 30 RF: 2 Referrals Referrals: José Larry III, CRNP [Primary Care Provider] -
[2021-08-05 02:54] LABS: Alanine Aminotransferase 39 U/L (7-52); Albumin Globulin Ratio 1.1 (0.9-2); Albumin Level 3.8 gm/dl (3.4-5.0); Alkaline Phosphatase 61 U/L (34-104); Anion Gap 10 (3-11); Aspartate Aminotransferase 41 U/L (13-39); BUN Creatinine Ratio 17.4 (10-20); Basophils # (auto) 0.04 K/uL (0-0.2); Bilirubin,Total 0.6 mg/dl (0.2-1.0); Blood Urea Nitrogen 15 mg/dl (6-23); Calcium 8.7 mg/dl (8.5-10.1); Carbon Dioxide 23 mmol/L (21-32); Chloride 108 mmol/L (98-107); Eosinophils # (auto) 0.04 K/uL (0-0.5); Est GFR (African American) 76.1 ml/min; Est GFR (Non-African American) 65.6 ml/min; Globulin 3.4 gm/dl (2.5-4.0); Glucose 111 mg/dl (70-99(Fasting)); Hematocrit (blood only) 45.6 % (37-47); Hemoglobin 15.6 g/dL (12.0-16.0); Immature Granulocytes # (auto) 0.01 K/uL (0.00-0.02); Immature Granulocytes % (auto) 0.3 %; Lipase 49 U/L (11-82); Lymphocytes % (auto) 48.7 %; Magnesium 1.8 mg/dl (1.7-2.4); Mean Corpuscular Hemoglobin 32.4 pg (25-34); Mean Corpuscular Hgb Conc 34.2 g/dL (32-36); Mean Corpuscular Volume 94.6 fL (80-100); Mean Platelet Volume 9.7 fL (7.4-10.4); Monocytes # (auto) 0.32 K/uL (0.11-0.59); Monocytes % (auto) 8.2 %; Neutrophils # (auto) 1.59 K/uL (1.4-6.5); Neutrophils % (auto) 40.8 %; Platelet Count 219 K/uL (130-400); Potassium 3.5 mmol/L (3.5-5.1); RDW Coefficient of Variation 14.5 % (11.5-14.5); RDW Standard Deviation 50.7 fL (36.4-46.3); Red Blood Count 4.82 M/uL (4.2-5.4); Sodium 141 mmol/L (136-145); Total Protein 7.2 gm/dl (6.0-8.3); Troponin I < 0.03 ng/ml (0-0.04)
[2021-08-05 02:56] LABS: Partial Thromboplastin Ratio 0.9; Partial Thromboplastin Time 24.2 Seconds (21.0-31.0)
--- NOTE | 2021-08-05 03:48 | History & Physical Report ---
Date of Service August 05, 2021 Assessment & Plan (1) Atrial fibrillation with RVR: Plan: 75yo female with HTN, DM, HLP presenting with new onset atrial fibrillation with RVR. Presently rate controlled after receiving IV Diltiazem in the field. No chest pain, dizziness. Patient feels well at this time -Admit to medical with telemetry -Check 2D echo -Metoprolol 12.5mg po BID -Lovenox 1mg/kg BID for anticoagulation ([id number]= 5) Patient should be continued on anticoagulation if tolerated -Cardiology consultation appreciated re: possible cardioversion - new onset, presumed duration <24 hours (2) Hypercholesterolemia: Plan: Total [id number]=267, NLR=225, HDL=71, TG=78 on 07/12/21 No medications at present Encourage lifestyle (3) GERD without esophagitis: Plan: Patient with history of GERD. mild inflammation/gastritis noted on EGD 08/09/18 -Continue Omeprazole -Continue Famotidine -Instruct patient to monitor for melena/hematochezia with new blood thinner (4) HTN (hypertension): Plan: Blood pressure well controlled -Continue Amlodipine -Metoprolol 12.5mg po BID as above (5) Diabetes: Plan: Chronic. Well controlled. Last [id number] on 07/12/21 -Continue Metformin 500mg po BID -BSG qAC/HS Plan: F/E/N - Heplock. Electroltyes WNL. NPO for now Ppx - Lovenox 1mg/kg Code - Full per discussion with patient Dispo - Admit to medical with telemetry History of Present Illness Chief Complaint: tachycardia Primary Care Provider: José Larry III, [place] Ms. Gabriela Garcia is a 75yo Chadian speaking female presenting with new onset atrial fibrillation. Language line used during interview. Patient states she was in her usual state of health until 12:00 when she woke suddenly with palpitations. She felt that her heart was racing, felt dizzy. S he checked her heart rate which was 130 bpm and her blood pressure was 80/52. She called her friend in [place] who instructed her to call 911. Patient was reluctant at first because she is worried about how much it will cost. Her friend insisted and she called EMS. Patient in atrial fibrillation with RVR by EMS. She was administered Diltiazem 10mg IV. She denies chest pain, cough, SOB, fever, abdominal pain, nausea, vomiting, diarrhea or constipation. Upon arrival to the ER patient afebrile, HD stable, rate controlled AF at 83bpm, blood pressure of 114/74 Patient denies history of heart disease. She has felt palpitation in the past but never sustained. She reports feeling this way many years in [facility] - limited access to healthcare and no workup pursued. Allergies Allergy/AdvReac Type Severity Reaction Status Date / Time No Known Allergies Allergy Verified 08/05/21 01:54 Home Medications Medication Instructions Recorded Confirmed Type blood-glucose meter (OneTouch #1 ea 02/25/21 06/28/21 Rx Verio Flex Start) famotidine 40 mg tablet (Pepcid) 40 mg PO BID #28 tab 02/25/21 08/05/21 Rx valacyclovir 1 gram tablet See Rx Instructions .ROUTE 02/25/21 08/05/21 Rx .COMPLEX #4 tab amlodipine 5 mg tablet 7.5 mg PO HS 90 Days #135 tab 06/28/21 08/05/21 Rx blood sugar diagnostic (OneTouch #100 ea 06/28/21 06/28/21 Rx Verio test strips) lancets 33 gauge (OneTouch Delica #100 ea 06/28/21 06/28/21 Rx Lancets) meloxicam 15 mg tablet 7.5 mg PO BID PRN #30 tab 06/28/21 08/05/21 Rx metformin 500 mg tablet 500 mg PO BID #180 tab 06/28/21 08/05/21 Rx omeprazole 40 mg capsule,delayed 40 mg PO DAILY #90 cap 06/28/21 08/05/21 Rx release Past Med/Surg History Medical History Diabetes Diabetic peripheral angiopathy Discitis of lumbar region Diskitis GERD (gastroesophageal reflux disease) Hiatal hernia HLD (hyperlipidemia) HTN (hypertension) MSSA (methicillin susceptible Staphylococcus aureus) septicemia Obesity Psoas abscess Surgical History History of esophagogastroduodenoscopy (EGD) Family History Denies family history of Colon cancer Ovarian cancer Prostate cancer Myocardial infarction Breast cancer Social History Smoking Status: Never smoker Second Hand Exposure: No; Hx Alcohol Use: Yes Alcohol type: wine Hx Substance Use: No Preferred Language: Chadian Communication Ability: Effective Communication Tools: Language Line Catering Cook Visual Impairment: No Limitations Hearing Ability: Normal Catering Cook Required: Yes Beliefs That Will Affect Care: None marital status: Single Current Living Situation: Alone current occupational status: retired Feels Safe at Home: Yes Childhood Exposure to Second-Hand Smoke: No Diet Comment: low sugar Dental Care, Regularly: Yes Physical Activity Frequency: 3-4 Times per Week Seatbelt Use: always Sunscreen Use: Yes Review of Systems Review of Systems: All systems reviewed & are unremarkable except as noted in HPI & below Physical Exam Physical Exam: General: patient resting comfortably, NAD, non-toxic in appearance, AA&O x 4 Skin: warm, dry, intact, no rashes or lesions HEENT: NC/AT, PERRL, EOMI, anicteric sclera, conjunctiva without injection, external ear normal to inspection and nontender, nares patent, moist mucus membranes, dentition intact, no oropharyngeal lesions, neck supple, trachea mid line, no LAD, no thyromegaly, no JVD Heart: +S1/S2, irregularly irregular, no m/r/g Lungs: equal air entry bilaterally, no rales/rhonchi/wheezes Abd: +BS, soft, NT/ND, no masses/organomegaly/ascites Ext: warm, 2+ pulses in UE/LE bilaterally, no clubbing/cyanosis or edema Neuro: nonfocal, patient AA&O x 4, speech intact, no facial droop, moving all extremities on command with equal strength 5/5 Results & Data Results & Data ([facility]) Vital Signs (Past 12 Hours) Vital Signs Temp Pulse Pulse Resp BP Pulse Ox 08/05/21 03:00 109 H 18 116/75 99 08/05/21 01:46 37.1 C 83 83 18 114/74 96 Laboratory Results Laboratory Results WBC 3.90 K/uL (4.8-10.8) L 08/05/21 01:50 RBC 4.82 M/uL (4.2-5.4) 08/05/21 01:50 Hgb 15.6 g/dL (12.0-16.0) 08/05/21 01:50 Hct 45.6 % (37-47) 08/05/21 01:50 MCV 94.6 fL (80-100) 08/05/21 01:50 MCH 32.4 pg (25-34) 08/05/21 01:50 MCHC 34.2 g/dL (32-36) 08/05/21 01:50 RDW Std Deviation 50.7 fL (36.4-46.3) H 08/05/21 01:50 RDW Coeff of Vasquez 14.5 % (11.5-14.5) 08/05/21 01:50 Plt Count 219 K/uL (130-400) 08/05/21 01:50 MPV 9.7 fL (7.4-10.4) 08/05/21 01:50 Immature Gran % (Auto) 0.3 % 08/05/21 01:50 Neut % (Auto) 40.8 % 08/05/21 01:50 Lymph % (Auto) 48.7 % 08/05/21 01:50 Appling % (Auto) 8.2 % 08/05/21 01:50 Eos % (Auto) 1.0 % 08/05/21 01:50 Baso % (Auto) 1.0 % 08/05/21 01:50 Neut # (Auto) 1.59 K/uL (1.4-6.5) 08/05/21 01:50 Lymph # (Auto) 1.90 K/uL (1.2-3.4) 08/05/21 01:50 Appling # (Auto) 0.32 K/uL (0.11-0.59) 08/05/21 01:50 Eos # (Auto) 0.04 K/uL (0-0.5) 08/05/21 01:50 Baso # (Auto) 0.04 K/uL (0-0.2) 08/05/21 01:50 Immature Gran # (Auto) 0.01 K/uL (0.00-0.02) 08/05/21 01:50 PT 11.0 Seconds (9.0-12.0) 08/05/21 01:50 INR 1.0 (0.9-1.1) 08/05/21 01:50 APTT 24.2 Seconds (21.0-31.0) 08/05/21 01:50 PTT Ratio 0.9 08/05/21 01:50 Sodium 141 mmol/L (136-145) 08/05/21 01:50 Potassium 3.5 mmol/L (3.5-5.1) 08/05/21 01:50 Chloride 108 mmol/L (98-107) H 08/05/21 01:50 Carbon Dioxide 23 mmol/L (21-32) 08/05/21 01:50 Anion Gap 10 (3-11) 08/05/21 01:50 BUN 15 mg/dl (6-23) 08/05/21 01:50 Creatinine 0.86 mg/dl (0.6-1.2) 08/05/21 01:50 Est Cr Clr Drug Dosing Not Reportable 08/05/21 01:50 Est GFR ( Amer) 76.1 ml/min 08/05/21 01:50 Est GFR (Non-Af Amer) 65.6 ml/min 08/05/21 01:50 BUN/Creatinine Ratio 17.4 (10-20) 08/05/21 01:50 Glucose 111 mg/dl (70-99(Fasting)) H 08/05/21 01:50 Calcium 8.7 mg/dl (8.5-10.1) 08/05/21 01:50 Magnesium 1.8 mg/dl (1.7-2.4) 08/05/21 01:50 Total Bilirubin 0.6 mg/dl (0.2-1.0) 08/05/21 01:50 AST 41 U/L (13-39) H 08/05/21 01:50 ALT 39 U/L (7-52) 08/05/21 01:50 Alkaline Phosphatase 61 U/L (34-104) 08/05/21 01:50 Troponin I < 0.03 ng/ml (0-0.04) 08/05/21 01:50 Total Protein 7.2 gm/dl (6.0-8.3) 08/05/21 01:50 Albumin 3.8 gm/dl (3.4-5.0) 08/05/21 01:50 Globulin 3.4 gm/dl (2.5-4.0) 08/05/21 01:50 Albumin/Globulin Ratio 1.1 (0.9-2) 08/05/21 01:50 Lipase 49 U/L (11-82) 08/05/21 01:50 TSH 2.490 uIu/ml (0.300-4.500) 08/05/21 01:50 Diagnostic Findings CXR with no acute pathology by my interpretation ECG Additional Comments: EKG with AF at 93, QRS=86, TOn=511, no acute ischemic changes present Code Status & VTE Plan VTE Prophylaxis Plan VTE Prophylaxis will be ordered: Yes PG Care Time/CCT Total # of Minutes Spent Total Time Spent with Patient: Total time spent is greater than 50% in coordination of care (as documented) at patient's floor/unit and/or counseling patient: Coding Level of Care Code 28134 Initial Inpt Care Lvl 2 Diagnoses Atrial fibrillation with RVR I48.91 Hypercholesterolemia E78.00 GERD without esophagitis K21.9 HTN (hypertension) I10 Hypertension type: essential hypertension Diabetes E11.9 Diabetes mellitus type: type 2 Diabetes mellitus chcf insulin use: without chcf use Diabetes mellitus complication status: without complication (1) HTN (hypertension) Hypertension type: essential hypertension Qualified Code(s): I10 - Essential (primary) hypertension (2) Diabetes Diabetes mellitus type: type 2 Diabetes mellitus chcf insulin use: without termite technician use Diabetes mellitus complication status: without complication Qualified Code(s): E11.9 - Type 2 diabetes mellitus without com plications
--- NOTE | 2021-08-05 07:54 | XRay Report ---
XR chest 1V portable CLINICAL HISTORY: Chest Pain. COMPARISON STUDY: 07/31/2015 TECHNIQUE: 1 view of the chest FINDINGS: Single frontal view of the chest demonstrates the cardiomediastinal silhouette to be within normal li mits. The lungs are clear of alveolar opacities. There is left lower lobe atelectasis versus scarring . There is no evidence for pleural effusion. There is no evidence for vascular congestion. There is n o acute osseous pathology. IMPRESSION: 1. No acute cardiopulmonary disease. Left lower lobe atelectasis versus scarring. ACT 112: Negative or not required by law. Electronically signed by: Ernesto Magallanes M.D. 08/05/2021 7:53 AM
[2021-08-05] MEDS ORDERED: FAMOTIDINE 40 MG TABLET PO SCH (10:16)
[2021-08-05] MEDS ORDERED: GLUCOSE 40% GEL 15 GM TUBE PO PRN (10:16)
[2021-08-05] MEDS ORDERED: GLUCOSE 10 TABS/TUBE PO PRN (10:16)
[2021-08-05] MEDS ORDERED: GLUCAGON FOR INJ 1 MG VIAL SQ PRN (10:16)
[2021-08-05] MEDS ORDERED: DEXTROSE 50% 50 ML SYRINGE IV PRN (10:16)
[2021-08-05] MEDS ORDERED: METOPROLOL TARTRATE 25 MG TAB PO SCH ×2 (10:16→21:00)
[2021-08-05] MEDS ORDERED: CARBOHYDRATES FOR HYPOGLYCEMIA PO PRN (10:16)
[2021-08-05] MEDS ORDERED: PANTOprazole 40 MG TAB PO SCH (10:30)
[2021-08-05] MEDS ORDERED: ENOXAPARIN 80 MG/0.8 ML SYR SQ ONE (11:30)
[2021-08-05] MEDS: metFORMIN HCL 500 MG TAB PO SCH ×2 (11:36→17:19)
[2021-08-05] MEDS: PATIENT'S HEIGHT AND/OR WEIGHT NEEDED SCH ×2 (12:16→12:17)
--- NOTE | 2021-08-05 14:55 | Cardiology Consultation ---
Date of Consultation August 05, 2021 Assessment & Plan (1) Paroxysmal atrial fibrillation: (2) Chest pain: (3) HTN (hypertension): ASSESSMENT/PLAN: 1. Paroxysmal atrial fibrillation: We discussed the diagnosis in detail. We discussed treatment strategies such as rate control, rhythm control, and ablation. Recommend rate control to begin and can intensify if necessary. Recommend metoprolol tartrate 25 mg twice daily. Recommend anticoagulation therapy for stroke risk reduction given elevated chads Vasc score. She was agreeable. Recommend Eliquis or Xarelot depending on affordability. If not an option financially, would recommend warfarin. 2. Hypertension: Blood pressure elevated mildly. Recommend increased beta- fox as above. Beta-fox initiated today. Can continue amlodipine. 3. Chest pain: Atypical chest pain while in AFib with RVR. Likely related to her arrhythmia given that she has not had this symptom in the past. She has not had any exertional symptoms and plans to exercise. For recurrence, especially in the absence of AFib, would then consider noninvasive ischemic evaluation. 4. Disposition: Can be discharged home from a Cardiology perspective. Follow- up in the cardiology office in approximately 2 weeks. Discussed her care with her friend as per her request (Isidra) via telephone. Patient care discussed with Dr. Mcdaniels of the primary hospitalist service. 50 minutes spent for this visit, with greater than 50% of time spent face -to-face, including counseling patient, and coordinating care. Time also included reviewing records and chart completion. Thank you for allowing me to participate in the care of your patient. Please call for any other questions or concerns. Sincerely, Omar Somers M.D. History of Present Illness Reason for Consultation: Atrial fibrillation Requesting Physician: Renuka Schwartz DO Attending Physician: Renuka Schwartz DO History of Present Illness Ms. Garcia is a pleasant 75-year-old Jamaican-speaking female who has a medical history significant for hypertension, dyslipidemia, and type 2 diabetes. She was admitted on 08/05/2021 with AFib with RVR. History was obtained from patient with the assistance of a Jamaican space control supervisor (Sarah #[id number]) via tablet. She states that she was awakened at approximately midnight with palpitations. She felt as though her heart was racing. She also felt weakness and believed to be experiencing slurred speech. Her blood pressure was reportedly 80/52 with a heart rate of 130 bpm. When EMS arrived at approximately 1:00 a.m. she states that she was unable to speak initially but after IV placement, she regained the ability to speak. No other neurologic deficit was reported. She continued to experience palpitations. She received intravenous diltiazem 10 mg IV. She felt her heart rate improving. She noted that at approximately 10:00 a.m., her heart rate was back to normal. Emergency department records and admitting history and physical reports she has had palpitations in the past. During our conversation, she states that she has never felt this particular symptom before to this degree. She asked that I call her friend, Isidra, to update her. Isidra also stated that she has complained of palpitations in the past but that this was her worst episode. When she was transferred from the emergency department 2 telemetry, the monitor was removed. She apparently converted while the monitor was off, sometime between 9:55 a.m. and 10:15 a.m.. She has been in sinus rhythm since then. She denies melena, hematochezia, hematuria, or other bleeding. During her palpitations, she had a left chest burning sensation, which was new for her. All of the symptoms have subsided. She has had occasional lightheadedness in the past but not currently. She denies a history of syncope. She has chronic lower extremity swelling and has been diagnosed with varicose veins, previously evaluated by vascular Medicine, Amrita Scott, on 01/21/21. She denies any shortness of breath pre hospital or during her episode of documented atrial fibrillation. Review of systems: As above. Review of systems otherwise negative/unremarkable. Family history: No known premature CAD. Social history: She denies tobacco, alcohol, or drug abuse. She lives alone in [place] but is originally from [place] [facility]. She has a daughter in [place] in a son in [facility]. She is . She was unaccompanied today. Allergies Allergy/AdvReac Type Severity Reaction Status Date / Time No Known Allergies Allergy Verified 08/05/21 01:54 Home Medications Medication Instructions Recorded Confirmed Type blood-glucose meter (OneTouch #1 ea 02/25/21 06/28/21 Rx Verio Flex Start) famotidine 40 mg tablet (Pepcid) 40 mg PO BID #28 tab 02/25/21 08/05/21 Rx valacyclovir 1 gram tablet See Rx Instructions .ROUTE 02/25/21 08/05/21 Rx .COMPLEX #4 tab amlodipine 5 mg tablet 7.5 mg PO HS 90 Days #135 tab 06/28/21 08/05/21 Rx blood sugar diagnostic (OneTouch #100 ea 06/28/21 06/28/21 Rx Verio test strips) lancets 33 gauge (OneTouch Delica #100 ea 06/28/21 06/28/21 Rx Lancets) meloxicam 15 mg tablet 7.5 mg PO BID PRN #30 tab 06/28/21 08/05/21 Rx metformin 500 mg tablet 500 mg PO BID #180 tab 06/28/21 08/05/21 Rx omeprazole 40 mg capsule,delayed 40 mg PO DAILY #90 cap 06/28/21 08/05/21 Rx release Patient History Medical History Diabetes Diabetic peripheral angiopathy Discitis of lumbar region Diskitis GERD (gastroesophageal reflux disease) Hiatal hernia HLD (hyperlipidemia) HTN (hypertension) MSSA (methicillin susceptible Staphylococcus aureus) septicemia Obesity Psoas abscess Surgical History History of esophagogastroduodenoscopy (EGD) Family History Denies family history of Colon cancer Ovarian cancer Prostate cancer Myocardial infarction Breast cancer Social History Smoking Status: Never smoker Second Hand Exposure: No; Hx Alcohol Use: Yes Alcohol type: wine Hx Substance Use: No Preferred Language: Jamaican Communication Ability: Effective Communication Tools: Language Line Geotechnical Operating Engineer Visual Impairment: No Limitations Hearing Ability: Normal Geotechnical Operating Engineer Required: Yes Beliefs That Will Affect Care: None marital status: Single Current Living Situation: Alone current occupational status: retired Feels Safe at Home: Yes Childhood Exposure to Second-Hand Smoke: No Diet Comment: low sugar Dental Care, Regularly: Yes Physical Activity Frequency: 3-4 Times per Week Seatbelt Use: always Sunscreen Use: Yes Physical Exam Physical Exam: Gen.: No acute distress. Alert and oriented. HEENT: Anicteric sclera. Neck: No JVD. No bruits. Normal carotid upstrokes bilaterally. Cardiac: PMI was nondisplaced. No ventricular heave. Regular rate and rhythm. Normal S1-S2. 1/6 systolic murmur. No rubs or gallops. Pulmonary: Clear to auscultation bilaterally without wheezes, rales, or rhonchi. Abdomen: Soft, nontender, nondistended, with normoactive bowel sounds. No bruits noted. Extremities: 2+ radial pulses bilaterally. 2+ posterior tibialis pulses bilaterally. No significant pitting edema or cyanosis. Psychiatric: Affect appears appropriate. Results & Data ([facility]) Vital Signs (Past 12 Hours) Vital Signs Pulse Pulse Resp BP BP Pulse Ox 08/05/21 10:16 66 08/05/21 09:30 93 H 16 152/102 H 96 08/05/21 09:01 87 14 160/102 H 96 08/05/21 08:30 92 H 13 162/103 H 97 08/05/21 08:00 108 H 15 159/102 H 94 08/05/21 07:00 81 15 180/81 H 98 08/05/21 05:00 86 18 121/72 98 08/05/21 03:00 109 H 18 116/75 99 Laboratory Results Laboratory Results - last 24 hr 08/05/21 08/05/21 08/05/21 01:50 01:50 01:50 WBC 3.90 L RBC 4.82 Hgb 15.6 Hct 45.6 MCV 94.6 MCH 32.4 MCHC 34.2 RDW Std Deviation 50.7 H RDW Coeff of Vasquez 14.5 Plt Count 219 MPV 9.7 Immature Gran % (Auto) 0.3 Neut % (Auto) 40.8 Lymph % (Auto) 48.7 [place] % (Auto) 8.2 Eos % (Auto) 1.0 Baso % (Auto) 1.0 Neut # (Auto) 1.59 Lymph # (Auto) 1.90 [place] # (Auto) 0.32 Eos # (Auto) 0.04 Baso # (Auto) 0.04 Immature Gran # (Auto) 0.01 PT 11.0 INR 1.0 APTT 24.2 PTT Ratio 0.9 Sodium 141 Potassium 3.5 Chloride 108 H Carbon Dioxide 23 Anion Gap 10 BUN 15 Creatinine 0.86 Est Cr Clr Drug Dosing Not Reportable Est GFR ( Amer) 76.1 Est GFR (Non-Af Amer) 65.6 BUN/Creatinine Ratio 17.4 Glucose 111 H POC Glucose Calcium 8.7 Magnesium 1.8 Total Bilirubin 0.6 AST 41 H ALT 39 Alkaline Phosphatase 61 Troponin I < 0.03 Total Protein 7.2 Albumin 3.8 Globulin 3.4 Albumin/Globulin Ratio 1.1 Lipase 49 TSH SARS-CoV-2, RNA, NAAT 08/05/21 08/05/21 08/05/21 01:50 04:40 10:23 WBC RBC Hgb Hct MCV MCH MCHC RDW Std Deviation RDW Coeff of Vasquez Plt Count MPV Immature Gran % (Auto) Neut % (Auto) Lymph % (Auto) [place] % (Auto) Eos % (Auto) Baso % (Auto) Neut # (Auto) Lymph # (Auto) [place] # (Auto) Eos # (Auto) Baso # (Auto) Immature Gran # (Auto) PT INR APTT PTT Ratio Sodium Potassium Chloride Carbon Dioxide Anion Gap BUN Creatinine Est Cr Clr Drug Dosing Est GFR ( Amer) Est GFR (Non-Af Amer) BUN/Creatinine Ratio Glucose POC Glucose 98 Calcium Magnesium Total Bilirubin AST ALT Alkaline Phosphatase Troponin I Total Protein Albumin Globulin Albumin/Globulin Ratio Lipase TSH 2.490 SARS-CoV-2, RNA, NAAT NEGATIVE 08/05/21 11:30 WBC RBC Hgb Hct MCV MCH MCHC RDW Std Deviation RDW Coeff of Vasquez Plt Count MPV Immature Gran % (Auto) Neut % (Auto) Lymph % (Auto) [place] % (Auto) Eos % (Auto) Baso % (Auto) Neut # (Auto) Lymph # (Auto) [place] # (Auto) Eos # (Auto) Baso # (Auto) Immature Gran # (Auto) PT INR APTT PTT Ratio Sodium Potassium Chloride Carbon Dioxide Anion Gap BUN Creatinine Est Cr Clr Drug Dosing Est GFR ( Amer) Est GFR (Non-Af Amer) BUN/Creatinine Ratio Glucose POC Glucose 75 Calcium Magnesium Total Bilirubin AST ALT Alkaline Phosphatase Troponin I Total Protein Albumin Globulin Albumin/Globulin Ratio Lipase TSH SARS-CoV-2, RNA, NAAT Diagnostic Findings Telemetry personally reviewed: Sinus rhythm. ECG personally review: ECG 08/05/2021 at 1:44 a.m.: AFib 93 beats per minute. Chest x-ray 08/05/2021: No acute cardiopulmonary disease per radiology. Bilateral lower extremity venous insufficiency study 02/03/2021: Bilateral GSV reflux. No DVT. Echo 08/05/2021 personally reviewed: Preliminary review demonstrated normal LV systolic function. Left atrium appeared dilated. Mild MR. Full report to follow after formal review. Medications Administered Current Inpatient Medications Amlodipine Besylate (Amlodipine Besylate 5 Mg Tab) 7.5 mg PO HS MAURO Stop: 09/04/21 20:59 Dextrose (Dextrose 50% 50 Ml Syringe) 25 - 50 ml IV UD PRN; Protocol PRN Reason: Hypoglycemia Protocol Stop: 09/04/21 10:15 Enoxaparin Sodium (Enoxaparin 80 Mg/0.8 Ml Syr) 80 mg SQ Q12H MAURO Stop: 09/04/21 22:59 Famotidine (Famotidine 40 Mg Tablet) 40 mg PO BID MAURO Stop: 09/04/21 10:15 Last Admin: 08/05/21 11:35 Dose: 40 mg Documented by: Glucagon (Glucagon For Inj 1 Mg Vial) 1 mg SQ UD PRN; Protocol PRN Reason: Hypoglycemia Protocol Stop: 09/04/21 10:15 Glucose (Glucose 10 Tabs/Tube) 4 - 8 tabs PO UD PRN; Protocol PRN Reason: Hypoglycemia Protocol Stop: 09/04/21 10:15 Glucose (Glucose 40% Gel 15 Gm Tube) 15 - 30 gm PO UD PRN; Protocol PRN Reason: Hypoglycemia Protocol Stop: 09/04/21 10:15 Metformin HCl (Metformin Hcl 500 Mg Tab) 500 mg PO BIDM MAURO Stop: 09/04/21 10:29 Last Admin: 08/05/21 11:36 Dose: Not Given Documented by: Metoprolol Tartrate (Metoprolol Tartrate 25 Mg Tab) 12.5 mg PO BID MAURO Stop: 09/04/21 10:15 Last Admin: 08/05/21 11:35 Dose: 12.5 mg Documented by: Miscellaneous (Carbohydrates For Hypoglycemia ) 15 - 30 gm PO UD PRN PRN Reason: Hypoglycemia Protocol Stop: 09/04/21 10:15 Pantoprazole Sodium (Pantoprazole 40 Mg Tab) 40 mg PO DAILY MAURO Stop: 09/04/21 10:29 Last Admin: 08/05/21 11:36 Dose: 40 mg Documented by: PG Care Time/CCT Total # of Minutes Spent Total Time Spent with Patient: Total time spent is greater than 50% in coordination of care (as documented) at patient's floor/unit and/or counseling patient: Coding Level of Care Code 28696 Office/Outpt Visit, Est Diagnoses Paroxysmal atrial fibrillation I48.0 Chest pain R07.9 HTN (hypertension) I10 Hypertension type: essential hypertension (1) HTN (hypertension) Hypertension type: essential hypertension Qualified Code(s): I10 - Essential (primary) hypertension
--- NOTE | 2021-08-05 17:01 | XCELERA ---
[id number]
--- NOTE | 2021-08-05 18:04 | Discharge Summary ---
Date of Service August 05, 2021 Admission HPI Per Admitting Provider Ms. Gabriela Garcia is a 75yo Mauritian speaking female presenting with new onset atrial fibrillation. Language line used during interview. Patient states she was in her usual state of health until 12:00 when she woke suddenly with palpitations. She felt that her heart was racing, felt dizzy. She checked her heart rate which was 130 bpm and her blood pressure was 80/52. She called her friend in [place] who instructed her to call 911. Patient was reluctant at first because she is worried about how much it will cost. Her friend insisted and she called EMS. Patient in atrial fibrillation with RVR by EMS. She was administered Diltiazem 10mg IV. She denies chest pain, cough, SOB, fever, abdominal pain, nausea, vomiting, diarrhea or constipation. Upon arrival to the ER patient afebrile, HD stable, rate controlled AF at 83bpm, blood pressure of 114/74 Patient denies history of heart disease. She has felt palpitation in the past but never sustained. She reports feeling this way many years in [facility] - limited access to healthcare and no workup pursued. Principal Diagnosis afib rvr Discharge Exam General: patient resting comfortably, NAD, non-toxic in appearance, AA&O x 4 Skin: warm, dry, intact, no rashes or lesions HEENT: NC/AT, PERRL, EOMI, anicteric sclera, conjunctiva without injection, external ear normal to inspection and nontender, nares patent, moist mucus membranes, dentition intact, no oropharyngeal lesions, neck supple, trachea midline, no LAD, no thyromegaly, no JVD Heart: +S1/S2, RRR, no m/r/g Lungs: equal air entry bilaterally, no rales/rhonchi/wheezes Abd: +BS, soft, NT/ND, no masses/organomegaly/ascites Ext: warm, 2+ pulses in UE/LE bilaterally, no clubbing/cyanosis or edema Neuro: nonfocal, patient AA&O x 4, speech intact, no facial droop, moving all extremities on command with equal strength 5/5 Discharge Data Allergies Allergy/AdvReac Type Severity Reaction Status Date / Time No Known Allergies Allergy Verified 08/05/21 01:54 Consultations 08/05/21 01:52 ED Decision to Admit Stat 08/05/21 10:16 Consult Cardiology Routine Hospital Course (1) Atrial fibrillation with RVR: 75yo female with HTN, DM, HLP presenting with new onset atrial fibrillation with RVR. Presently rate controlled after receiving IV Diltiazem in the field. No chest pain, dizziness. Patient feels well at this time -Admit to medical with telemetry -Check 2D echo -Metoprolol 12.5mg po BID -Lovenox 1mg/kg BID for anticoagulation (LEYYF0Giva= 5) Patient should be continued on anticoagulation if tolerated -Cardiology consultation appreciated re: possible cardioversion - new onset, presumed duration <24 hours Appreciate input from cardio: 1. Paroxysmal atrial fibrillation: We discussed the diagnosis in detail. We discussed treatment strategies such as rate control, rhythm control, and ablation. Recommend rate control to begin and can intensify if necessary. Recommend metoprolol tartrate 25 mg twice daily. Recommend anticoagulation therapy for stroke risk reduction given elevated chads Vasc score. She was agreeable. Recommend Eliquis or Xarelot depending on affordability. If not an option financially, would recommend warfarin. 2. Hypertension: Blood pressure elevated mildly. Recommend increased beta- fox as above. Beta-fox initiated today. Can continue amlodipine. 3. Chest pain: Atypical chest pain while in AFib with RVR. Likely related to her arrhythmia given that she has not had this symptom in the past. She has not had any exertional symptoms and plans to exercise. For recurrence, especially in the absence of AFib, would then consider noninvasive ischemic evaluation. 4. Disposition: Can be discharged home from a Cardiology perspective. Follow- up in the cardiology office in approximately 2 weeks. Discussed her care with her friend as per her request (Isidra) via telephone. Patient care discussed with Dr. Mcdaniels of the primary hospitalist service. (2) Hypercholesterolemia: Total asjnwbtvazz=684, IAB=130, HDL=71, TG=78 on 07/12/21 No medications at present Encourage lifestyle (3) GERD without esophagitis: Patient with history of GERD. mild inflammation/gastritis noted on EGD 08/09/18 -Continue Omeprazole -Continue Famotidine -Instruct patient to monitor for melena/hematochezia with new blood thinner (4) HTN (hypertension): Blood pressure well controlled -Continue Amlodipine -Metoprolol 12.5mg po BID as above (5) Diabetes: Chronic. Well controlled. Last [id number]=9 on 07/12/21 -Continue Metformin 500mg po BID -BSG qAC/HS F/E/N - [place]. Electroltyes WNL. NPO for now Ppx - Lovenox 1mg/kg Total Time Total Time Spent Total Time Spent (In Minutes): 32 Discharge Plan Discharge Items Patient Disposition: Home - Self-Care Reason For Visit: NEW ATRIAL FIBRILLATION Discharge Diagnosis: New atrial fibrillation Condition on Discharge: Good Activity: Resume your previous activity Non-emergency contact: Primary Care Provider Call non-emergency contact if: you have any medication questions Follow-up/Referrals: Manfred Somers MD [Physician] - 08/19/21 1:30 pm (With Mabel Zapien) José Larry III, CRNP [Primary Care Provider] - 08/12/21 9:20 am Diet: Heart Healthy Addtl Attending Provider Instructions: Follow-up in the cardiology office in approximately 2 weeks. Discussed her care with her friend as per her request (Isidra) via telephone. Try to limit to meloxicam, due to risk of bleeding. May replace with tylenol. You can use meloxicam, but there is a higher risk of bleeding with eliquis. Pending Studies at Discharge: No Stand-Alone Forms: [facility] [place] [employer], Smoking Cessation Medications and DC Order Prescriptions: New metoprolol succinate 25 mg tablet extended release 24 hr 25 mg PO PM Qty: 30 RF: 0 Eliquis 5 mg tablet 5 mg PO BID Qty: 60 RF: 0 Continued (DME) blood-glucose meter [OneTouch Verio Flex Start] Kit See Rx Instructions .ROUTE .MEDSUPPLY Qty: 1 RF: 0 famotidine [Pepcid] 40 mg tablet 40 mg PO BID Qty: 28 RF: 0 valacyclovir 1 gram tablet See Rx Instructions .ROUTE .COMPLEX Qty: 4 RF: 0 amlodipine 5 mg tablet 7.5 mg PO HS 90 Days Qty: 135 RF: 3 omeprazole 40 mg capsule,delayed release(DR/EC) 40 mg PO DAILY Qty: 90 RF: 3 (DME) OneTouch Verio test strips Strip See Rx Instructions .ROUTE .MEDSUPPLY Qty: 100 RF: 3 (DME) lancets [OneTouch Delica Lancets] 33 gauge misc See Rx Instructions .ROUTE .MEDSUPPLY Qty: 100 RF: 3 metformin 500 mg tablet 500 mg PO BID Qty: 180 RF: 3 meloxicam 15 mg tablet 7.5 mg PO BID PRN (Reason: pain) Qty: 30 RF: 2 Discharge Orders: Discharge Order (Routine); Ordered 08/05/21 Ordered By: Larry Mcdaniels Admission Data Admit Date/Time: 08/05/21 03:43 Attending Provider: Renuka Schwartz Admit Provider: Renuka Schwartz Primary Care Provider: José Larry III Other Providers: Renuka Schwartz ; Omar Parnell Other Interventions: Discharge Summary Assessment (RN) Last Done: 08/05/21 16:30 Coding Level of Care Code OBSERV/HOSP SAME DATE LVL 3 Diagnoses Atrial fibrillation with RVR I48.91 Hypercholesterolemia E78.00 GERD without esophagitis K21.9 HTN (hypertension) I10 Hypertension type: essential hypertension Diabetes E11.9 Diabetes mellitus complication status: without complication Diabetes mellitus group home insulin use: without group home use Diabetes mellitus type: type 2
[2021-08-05] MEDS ORDERED: amLODIPine BESYLATE 5 MG TAB PO SCH (21:00)
--- NOTE | 2021-08-05 21:46 | Electrocardiogram Report ---
Test Reason : Blood Pressure : / mmHG Vent. Rate : 093 BPM Atrial Rate : 089 BPM P-R Int : 000 ms QRS Dur : 086 ms QT Int : 390 ms P-R-T Axes : 000 049 004 degrees QTc Int : 484 ms Atrial fibrillation Prolonged QT Abnormal ECG When compared with ECG of 31-JUL-2015 10:52, Atrial fibrillation has replaced Sinus rhythm Confirmed by Manfred Somers ([id number]) on 08/05/2021 9:45:52 PM Referred By: REFERRED SELF Confirmed By:Manfred Somers
[2021-08-05] MEDS ORDERED: ENOXAPARIN 80 MG/0.8 ML SYR SQ SCH (23:00)
--- NOTE | 2021-08-06 06:21 | Electrocardiogram Report ---
Test Reason : Blood Pressure : / mmHG Vent. Rate : 062 BPM Atrial Rate : 062 BPM P-R Int : 164 ms QRS Dur : 082 ms QT Int : 456 ms P-R-T Axes : -18 022 033 degrees QTc Int : 462 ms Normal sinus rhythm Normal ECG When compared with ECG of 05-AUG-2021 01:44, Sinus rhythm has replaced Atrial fibrillation Vent. rate has decreased BY 31 BPM Confirmed by Manfred Somers ([id number]) on 08/06/2021 6:21:13 AM Referred By: REFERRED SELF Confirmed By:Manfred Somers
== END 2021-08-05 18:10 | disposition home or self-care (01) | DRG 310 ==
LOC: ED 01:29 → 2W 03:43
DX: E11.9 Type 2 diabetes mellitus without complications; E78.00 Pure hypercholesterolemia, unspecified; K21.9 Gastro-esophageal reflux disease without esophagitis; I10 Essential (primary) hypertension; I48.0 Paroxysmal atrial fibrillation; Z79.899 Other long term (current) drug therapy; Z79.84 Long term (current) use of oral hypoglycemic drugs; R07.89 Other chest pain